=== PATIENT | male | born 1940 | race Caucasian/White ===

== ENCOUNTER → 2018-10-01 | Outpatient (CLI) | payer MEDICARE ==
--- NOTE | 2018-10-01 15:33 | KCIC ---
EXAM: Lumbar spine MRI without contrast. HISTORY: Right lower extremity radiculopathy. TECHNIQUE: Multiplanar, multisequence magnetic resonance imaging of the lumbar spine was performed without contrast. COMPARISON: None. FINDINGS: There is mild lumbar scoliosis and hyperlordosis. There is no significant listhesis. There is degenerative endplate remodeling with disc space narrowing, osteophytosis and Schmorl's node formation at the majority of the lumbar levels. There is relative preservation of the disc space at L4-L5. There are several incidental osseous hemangiomas, the largest of which is seen within T12. No suspicious osseous lesion is seen. The conus terminates at L1. There are small left renal cysts. There is slight clumping and peripheral distribution of the nerve roots at the lumbosacral junction and within the sacral canal. At T11-T12, there is a disc bulge and endplate osteophytosis. There is mild facet arthropathy. There is a tiny right facet joint synovial cyst. There is mild right foraminal stenosis. At T12-L1, there is a shallow broad-based left paracentral disc protrusion superimposed on a disc bulge and endplate remodeling. There is no stenosis. At L1-L2, there is a disc bulge and endplate osteophytosis. There is mild bilateral facet arthropathy. There is slight hypertrophy of the ligamentum flavum. There is mild to moderate bilateral foraminal stenosis. There is mild central canal stenosis. At L2-L3, there is a disc bulge and endplate osteophytosis. There may be superimposed broad-based posterior central to left paracentral disc protrusion and annular tear. There is moderate facet arthropathy. There is hypertrophy of the ligamentum flavum. There is [id number] bilateral foraminal stenosis. There is moderate to severe central canal stenosis. At L3-L4, there is a diffuse disc bulge and endplate osteophytosis. There may be superimposed broad-based posterior central disc protrusion and annular tear. There is moderate facet arthropathy. There is hypertrophy of the ligamentum flavum. There is mild bilateral foraminal stenosis. There is moderate central canal stenosis. At L4-L5, there is a broad-based posterior central to right paracentral disc protrusion with slight inferior extrusion superimposed on a disc bulge and endplate osteophytosis. There is mild bilateral facet arthropathy. There is abutment of the exiting left L4 nerve root without significant foraminal stenosis. There is abutment of the traversing right L5 nerve root without significant central canal stenosis. There are left hemilaminectomy changes. At L5-S1, there is a posterior central disc protrusion and annular tear with slight superior extrusion superimposed on a disc bulge and endplate osteophytosis. There is moderate to severe bilateral facet arthropathy. There is moderate to severe bilateral foraminal stenosis. There are left hemilaminectomy changes. IMPRESSION: 1. Multilevel degenerative change throughout the thoracic and lumbar spine, described in detail above. This results in significant foraminal and central canal stenosis at the aforementioned levels. 2. Grade 1 anterolisthesis of L5 on S1 and lumbar scoliosis. 3. Slight clumping and peripheral distribution of the nerve roots at the lumbosacral junction and within the sacral canal. 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 4. Left hemilaminectomy changes at L4-L5 and L5-S1. Electronically signed by: Aziza Barragan MD (10/01/2018 3:30 PM) [email or web address]
== END | disposition home or self-care (01) ==
LOC: KCIC MRI 13:37
PROVIDERS: ATTEND Anesthesiology Pain Medicine
DX: M47.26 Other spondylosis with radiculopathy, lumbar region (principal); M47.894 Other spondylosis, thoracic region; M48.061 Spinal stenosis, lumbar region without neurogenic claudication; M41.86 Other forms of scoliosis, lumbar region; M43.17 Spondylolisthesis, lumbosacral region; M51.27 Other intervertebral disc displacement, lumbosacral region; M12.88 Other specific arthropathies, not elsewhere classified, other specified site; D18.09 Hemangioma of other sites
CPT/HCPCS: 72148

== ENCOUNTER → 2018-12-08 | Outpatient (CLI) | payer MEDICARE ==
--- NOTE | 2018-12-08 16:07 | KCIC ---
MRI of the thoracic spine without contrast 12/08/2018 CLINICAL HISTORY: Mid back pain. TECHNIQUE: Unenhanced T1-weighted, T2-weighted and inversion recovery sagittal and T1-weighted and T2-weighted axial images of the thoracic spine were obtained. Additionally T2-weighted sagittal images of the cervical, thoracic and lumbar spine were obtained for localization purposes. FINDINGS: Very mild S-shaped curvature of the thoracolumbar spine is seen. Degenerative signal changes are seen involving all of the disks of the thoracic spine. Degenerative signal changes are seen within the marrow surrounding these discs. Several hemangiomas are seen scattered throughout the thoracic vertebral bodies. These measure 3 mm to 2.2 cm in size. No area of abnormal signal intensity is seen involving the thoracic spinal cord. A 1.8 cm rounded high signal intensity lesion is seen involving the right kidney on the T2-weighted images. This likely represents a cyst. Degenerative changes are seen throughout the thoracic disc spaces consisting of minimal to mild generalized disc bulges, degenerative changes involving the facet joints and small superimposed focal disc protrusions. These measure 2 to 3 mm in AP diameter. These findings when combined do not result in significant central spinal canal stenosis. Mild right neural foraminal stenosis is seen at T11-T12. No additional area of neural foraminal stenosis is seen. IMPRESSION: Degenerative changes are seen involving the thoracic spine as discussed above. These findings do not result in significant central spinal canal stenosis at any level. Mild right neural foraminal stenosis is seen at T11-12. Electronically signed by: Samuel Reinoso MD (12/08/2018 4:04 PM) [email or web address]
== END | disposition home or self-care (01) ==
LOC: KCIC MRI 14:06
PROVIDERS: ATTEND Nurse Practitioner Family
DX: M47.24 Other spondylosis with radiculopathy, thoracic region (principal); M48.04 Spinal stenosis, thoracic region; M51.14 Intervertebral disc disorders with radiculopathy, thoracic region; D18.09 Hemangioma of other sites
CPT/HCPCS: 72146

== ENCOUNTER → 2019-05-20 | Outpatient (CLI) | payer MEDICARE ==
[~2019-05-20] MED LIST: ASPI-630 PO; CYAN-25 PO; DOXY100C14 PO; FLUT9.9S NS; GUAI100L12 PO; HYDR-2761 PO; LORA0.5T96 PO; MELA3TAB56 PO; OXYB5TAB2 PO; TRIA15CR2 TP; [UNRECOGNIZED DRUG - CODE] TP
--- NOTE | 2019-05-20 13:27 | KCIC ---
EXAM: Bilateral knees, 3 views. HISTORY: Arthritis. COMPARISON: None. FINDINGS: 3 views of both knees are obtained. There is a left knee arthroplasty in expected position. There is a suspected trace left knee effusion. There is right tricompartmental joint space narrowing with subchondral sclerosis, subchondral cyst formation and marginal spurring. There is slight lateral subluxation of the tibia relative to the femoral condyles. There is a trace right knee effusion. IMPRESSION: 1. Moderate tricompartmental osteoarthritis of the right knee with small effusion. 2. Left knee arthroplasty in expected position. There is a suspected trace left knee effusion. Electronically signed by: Aziza Barragan MD (05/20/2019 1:24 PM) [email or web address]
== END | disposition home or self-care (01) ==
LOC: KCIC 11:44
PROVIDERS: ATTEND Anesthesiology Pain Medicine
DX: M17.0 Bilateral primary osteoarthritis of knee (principal)
CPT/HCPCS: 73562

== ENCOUNTER 2019-06-06 11:58 | Inpatient (IN) | payer MEDICARE ==
[~2019-06-06] VITALS: Ht 165.1 cm; Wt 79.4 kg
[2019-06-06] MEDS ORDERED: IV NORMAL SALINE 500ML BAG 500 ML IV ONE (12:45)
[2019-06-06 12:48] LABS: BASO # 0.1 x10^3/uL (0.0-0.2); BASO % 2 % (0-3); EOS # 0.2 x10^3/uL (0.0-0.7); EOS % 3 % (0-3); HEMATOCRIT 42.4 % (39.0-53.0); HEMOGLOBIN 14.3 g/dL (13.0-17.5); LYMPH # 1.2 x10^3/uL (1.0-4.8); LYMPH % 14 % (24-48); MEAN CORPUSCULAR HEMOGLOBIN 34 pg (25-35); MEAN CORPUSCULAR HGB CONC 34 g/dL (31-37); MEAN CORPUSCULAR VOLUME 101 fL (79-100); MONO # 0.9 x10^3/uL (0.0-1.1); MONO % 11 % (0-9); NEUT # 6.1 x10^3/uL (1.8-7.7); NEUT % 71 % (31-73); PLATELET COUNT 207 x10^3/uL (140-400); WHITE BLOOD COUNT 8.5 x10^3/uL (4.0-11.0)
[2019-06-06 12:59] LABS: CALCIUM 8.6 mg/dL (8.5-10.1); CREATININE 1.3 mg/dL (0.7-1.3); GFR 53.1; POTASSIUM 4.5 mmol/L (3.5-5.1)
[2019-06-06 13:05] LABS: ALBUMIN 3.7 g/dL (3.4-5.0); ALBUMIN/GLOBULIN RATIO 1.4 (1.0-1.7); TOTAL BILIRUBIN 0.8 mg/dL (0.2-1.0); TOTAL PROTEIN 6.4 g/dL (6.4-8.2)
--- NOTE | 2019-06-06 13:20 | RAD ---
Exam performed: One view chest. HISTORY: Weakness, dizziness DATE OF SERVICE: 06/06/2019. COMPARISON: None available Single AP upright portable view chest findings: There is opacification left lung base obscuring the left hemidiaphragm and left cardiac silhouette. The right lung is clear. There is no right-sided infiltrate. No pneumothorax. IMPRESSION: Hazy opacity left lung base obscuring the left hemidiaphragm and cardiac silhouette likely infiltrates Electronically signed by: Charisse Garcia MD (06/06/2019 1:16 PM) [facility]
[2019-06-06 13:28] LABS: BILIRUBIN,URINE NEGATIVE (NEG); CLARITY,URINE CLEAR; COLOR,URINE YELLOW; NITRITE,URINE NEGATIVE (NEG); PH,URINE 6.5; PROTEIN,URINE NEGATIVE (NEG-TRACE); UROBILINOGEN,URINE 0.2 mg/dL (0.2 mg/dL)
[2019-06-06 13:32] LABS: BACTERIA,URINE 0 /HPF (0-FEW); WBC,URINE OCC /HPF (0-4)
--- NOTE | 2019-06-06 13:51 | RAD ---
Exam: CT head without contrast. Date: 06/06/2019, comparison: None available Indication: Suspected intracranial hemorrhage Technique: 5 mm axial images of the head were obtained without contrast. Findings: There is low attenuation within the periventricular white matter consistent with chronic small vessel ischemic disease. Prominence of cortical sulci and ventricular system is noted. There is cerebral atrophy. Midline structures are central. No hydrocephalus. No suspicious cerebral edema. No mass lesion or midline shift is seen. No extra axial fluid collection, intracranial hemorrhage or acute ischemia is detected. The visualized paranasal sinuses and mastoid air cells are clear. The osseous calvarium appears unremarkable. Impression: 1.Chronic small vessel ischemic disease and cerebral atrophy. 2.No acute findings. PQRS Compliance Statement: One or more of the following individualized dose reduction techniques were utilized for this examination: 1. Automated exposure control 2. Adjustment of the mA and/or kV according to patient size 3. Use of iterative reconstruction technique Electronically signed by: Charisse Garcia MD (06/06/2019 1:48 PM) [facility]
[2019-06-06] MEDS ORDERED: cefTRIAXone IV Push 1 GM VIAL. IVP ONE (14:00)
[2019-06-06] MEDS ORDERED: DOXYCYCLINE HYCLATE 100 MG in IV DEXTROSE 5% 100ML 100 ML IV ONE (14:00)
[2019-06-06] MEDS: IV NORMAL SALINE 1000ML BAG 1,000 ML IV SCH ×2 (14:34→19:48)
[2019-06-06 16:00] VITALS: BP 141/86
--- NOTE | 2019-06-06 16:03 | PDOC1 ---
History and Physical Date of Admission Date of Admission DATE: 06/06/19 TIME: 16:03 Identification/Chief Complaint Chief Complaint 79 year old male presenting with chief complaint for 5 days of altered mental status has been hallucinating and my thinking there are little boys in his room but there is dog poop everywhere the people are coming in now he is seeing things that are not there. This is unusual for him however is also been weak with being off balance NO FEVER ///POSITIVE COUGH denies VOMITING //loss of appetite //MILD SOB NOTED Past Medical History Past Medical History Past Medical History Past Medical History: A-Fib, Cancer, Hypertension, Prostatitis Additional Past Medical Histor: chronic back pain, orthostatic hypotension, insomnia, skin CA Past Surgical History: Knee Replacement, Other Additional Past Surgical Histo: shoulder, skin ca removal on L side forehead, back, carpal tunnel Alcohol Use: None Drug Use: None nonsmoker Cardiovascular: HTN CENTRAL NERVOUS SYSTEM: Dementia Musculoskeletal: Osteoarthritis Family History Family History: High Cholestrol, Hypertension Social History Smoke: No ALCOHOL: none Drugs: None Current Medications Current Medications Current Medications Sodium Chloride 500 ml @ 500 mls/hr 1X ONCE IV Last administered on 06/06/19at 12:59; Start 06/06/19 at 12:45; Stop 06/06/19 at 13:44; Status DC Ceftriaxone Sodium (Rocephin) 1 gm 1X ONCE IVP Last administered on 06/06/19at 14:20; Start 06/06/19 at 14:00; Stop 06/06/19 at 14:01; Status DC Doxycycline Hyclate 100 mg/ Dextrose 100 ml @ 50 mls/hr 1X ONCE IV Last administered on 06/06/19at 14:21; Start 06/06/19 at 14:00; Stop 06/06/19 at 15:59; Status DC Sodium Chloride 1,000 ml @ 75 mls/hr [id number] IV ; Start 06/06/19 at 14:34; Stop 06/07/19 at 14:33 Allergies Allergies: Coded Allergies: No Known Drug Allergies (Unverified , 06/06/19) ROS Review of System Review of Systems Review of Systems Constitutional: Denies fever or chills [] Eyes: Denies change in visual acuity, redness, or eye pain [] HENT: Denies nasal congestion or sore throat [] Cardiovascular: No additional information not addressed in HPI [] Musculoskeletal: Denies back pain or joint pain [] Integument: Denies rash or skin lesions [] Neurologic: Denies headache, focal weakness or sensory changes [] Endocrine: Denies polyuria or polydipsia [] 14 pt systems were reviewed and found to be within normal limits, except as documented General: YES: Fatigue, Malaise PSYCHOLOGICAL ROS: YES: Concentration difficultie, Disorientation, Hallucinations Eyes: Yes Decreased vision HEENT: YES: Heacaches, Visual Changes, Hearing change, Nasal congestion, Nasal discharge, Oral lesions, Sinus pain, Sore Throat, Epistaxis, Sneezing, Snoring, Tinnitus, Vertigo, Vocal changes, Other ALLERGY AND IMMUNOLOGY: No: Hives, Insect Bite Sensitivity, Itchy/Watery Eyes, Nasal Congestion, Post Nasal Drip, Seasonal Allergies, Other Hematological and Lymphatic: No: Bleeding Problems, Blood Clots, Blood Transfusions, Brusing, Night Sweats, Pallor, Swollen Lymph Nodes, Other ENDOCRINE: No: Breast Changes, Galactorrhea, Hair Pattern Changes, Hot Flashes, Malaise/lethargy, Mood Swings, Palpitations, Polydipsia/polyuria, Skin Changes, Temperature Intolerance, Unexpected Weight Changes, Other Respiratory: YES: Cough, Shortness of breath, SOB with excertion Gastrointestinal: No Nausea, No Vomiting, No Abdominal Pain, No Diarrhea, No Constipation, No Melena, No Hematochezia, No Other Musculoskeletal: Yes Joint Stiffness Neurological: Yes Behavorial Changes, Yes Confusion, Yes Gait Disturbance Skin: Yes Dry Skin Physical Exam Physical Exam Physical Exam Physical Exam Constitutional: Well developed, well nourished, no acute distress, non-toxic appearance. [] HENT: Normocephalic, atraumatic, bilateral external ears normal, oropharynx DRY, no oral exudates, nose normal. [] Eyes: PERRLA, EOMI, conjunctiva normal, no discharge. [] Neck: Normal range of motion, no tenderness, supple, no stridor. [] Cardiovascular:Heart rate regular rhythm, no murmur [] Lungs & Thorax: DECREASED BREATH SOUNDS LEFT LUNG BASE SOFT NONTENDER, no masses, no pulsatile masses. [] Skin: Warm, dry, no erythema, no rash. [] Back: No tenderness, no CVA tenderness. [] Extremities: No tenderness, no cyanosis, no clubbing, ROM intact, no edema. [] disoriented to place and year General: Cooperative, No acute distress HEENT: Atraumatic, EOMI, Mucous membr. moist/pink Heart: RRR, no thrills Breasts: Not examined Abdomen: Normal bowel sounds, Soft Rectal Exam: not examined PELVIC: Examination not indicated Extremities: No clubbing, No cyanosis Skin: No significant lesion Neuro: Cranial nerves 3-12 NL Vitals Vitals Vital Signs Date Time Temp Pulse Resp B/P (MAP) Pulse Ox O2 Delivery O2 Flow Rate FiO2 06/06/19 13:17 77 15 95 06/06/19 12:00 97.8 147/85 (105) Room Air 97.8 Labs Labs Laboratory Tests Test 06/06/19 12:30 06/06/19 13:15 06/06/19 14:40 White Blood Count 8.5 x10^3/uL (4.0-11.0) Red Blood Count 4.20 x10^6/uL (4.30-5.70) Hemoglobin 14.3 g/dL (13.0-17.5) Hematocrit 42.4 % (39.0-53.0) Mean Corpuscular Volume 101 fL (79-100) Mean Corpuscular Hemoglobin 34 pg (25-35) Mean Corpuscular Hemoglobin Concent 34 g/dL (31-37) Red Cell Distribution Width 14.0 % (11.5-14.5) Platelet Count 207 x10^3/uL (140-400) Neutrophils (%) (Auto) 71 % (31-73) Lymphocytes (%) (Auto) 14 % (24-48) Monocytes (%) (Auto) 11 % (0-9) Eosinophils (%) (Auto) 3 % (0-3) Basophils (%) (Auto) 2 % (0-3) Neutrophils # (Auto) 6.1 x10^3/uL (1.8-7.7) Lymphocytes # (Auto) 1.2 x10^3/uL (1.0-4.8) Monocytes # (Auto) 0.9 x10^3/uL (0.0-1.1) Eosinophils # (Auto) 0.2 x10^3/uL (0.0-0.7) Basophils # (Auto) 0.1 x10^3/uL (0.0-0.2) Sodium Level 135 mmol/L (136-145) Potassium Level 4.5 mmol/L (3.5-5.1) Chloride Level 103 mmol/L (98-107) Carbon Dioxide Level 24 mmol/L (21-32) Anion Gap 8 (6-14) Blood Urea Nitrogen 22 mg/dL (8-26) Creatinine 1.3 mg/dL (0.7-1.3) Estimated GFR (Cockcroft-Gault) 53.1 BUN/Creatinine Ratio 17 (6-20) Glucose Level 95 mg/dL (70-99) Calcium Level 8.6 mg/dL (8.5-10.1) Total Bilirubin 0.8 mg/dL (0.2-1.0) Aspartate Amino Transf (AST/SGOT) 26 U/L (15-37) Alanine Aminotransferase (ALT/SGPT) 19 U/L (16-63) Alkaline Phosphatase 59 U/L (46-116) Total Protein 6.4 g/dL (6.4-8.2) Albumin 3.7 g/dL (3.4-5.0) Albumin/Globulin Ratio 1.4 (1.0-1.7) Urine Collection Type Unknown Urine Color Yellow Urine Clarity Clear Urine pH 6.5 Urine Specific [place] 1.015 Urine Protein Negative mg/dL (NEG-TRACE) Urine Glucose (UA) Negative mg/dL (NEG) Urine Ketones (Stick) Negative mg/dL (NEG) Urine Blood Negative (NEG) Urine Nitrite Negative (NEG) Urine Bilirubin Negative (NEG) Urine Urobilinogen Dipstick 0.2 mg/dL (0.2 mg/dL) Urine Leukocyte Esterase Negative (NEG) Urine RBC 1-2 /HPF (0-2) Urine WBC Occ /HPF (0-4) Urine Bacteria 0 /HPF (0-FEW) Lactic Acid Level 1.0 mmol/L (0.4-2.0) Laboratory Tests Test 06/06/19 12:30 06/06/19 13:15 06/06/19 14:40 White Blood Count 8.5 x10^3/uL (4.0-11.0) Red Blood Count 4.20 x10^6/uL (4.30-5.70) Hemoglobin 14.3 g/dL (13.0-17.5) Hematocrit 42.4 % (39.0-53.0) Mean Corpuscular Volume 101 fL (79-100) Mean Corpuscular Hemoglobin 34 pg (25-35) Mean Corpuscular Hemoglobin Concent 34 g/dL (31-37) Red Cell Distribution Width 14.0 % (11.5-14.5) Platelet Count 207 x10^3/uL (140-400) Neutrophils (%) (Auto) 71 % (31-73) Lymphocytes (%) (Auto) 14 % (24-48) Monocytes (%) (Auto) 11 % (0-9) Eosinophils (%) (Auto) 3 % (0-3) Basophils (%) (Auto) 2 % (0-3) Neutrophils # (Auto) 6.1 x10^3/uL (1.8-7.7) Lymphocytes # (Auto) 1.2 x10^3/uL (1.0-4.8) Monocytes # (Auto) 0.9 x10^3/uL (0.0-1.1) Eosinophils # (Auto) 0.2 x10^3/uL (0.0-0.7) Basophils # (Auto) 0.1 x10^3/uL (0.0-0.2) Sodium Level 135 mmol/L (136-145) Potassium Level 4.5 mmol/L (3.5-5.1) Chloride Level 103 mmol/L (98-107) Carbon Dioxide Level 24 mmol/L (21-32) Anion Gap 8 (6-14) Blood Urea Nitrogen 22 mg/dL (8-26) Creatinine 1.3 mg/dL (0.7-1.3) Estimated GFR (Cockcroft-Gault) 53.1 BUN/Creatinine Ratio 17 (6-20) Glucose Level 95 mg/dL (70-99) Calcium Level 8.6 mg/dL (8.5-10.1) Total Bilirubin 0.8 mg/dL (0.2-1.0) Aspartate Amino Transf (AST/SGOT) 26 U/L (15-37) Alanine Aminotransferase (ALT/SGPT) 19 U/L (16-63) Alkaline Phosphatase 59 U/L (46-116) Total Protein 6.4 g/dL (6.4-8.2) Albumin 3.7 g/dL (3.4-5.0) Albumin/Globulin Ratio 1.4 (1.0-1.7) Urine Collection Type Unknown Urine Color Yellow Urine Clarity Clear Urine pH 6.5 Urine Specific [place] 1.015 Urine Protein Negative mg/dL (NEG-TRACE) Urine Glucose (UA) Negative mg/dL (NEG) Urine Ketones (Stick) Negative mg/dL (NEG) Urine Blood Negative (NEG) Urine Nitrite Negative (NEG) Urine Bilirubin Negative (NEG) Urine Urobilinogen Dipstick 0.2 mg/dL (0.2 mg/dL) Urine Leukocyte Esterase Negative (NEG) Urine RBC 1-2 /HPF (0-2) Urine WBC Occ /HPF (0-4) Urine Bacteria 0 /HPF (0-FEW) Lactic Acid Level 1.0 mmol/L (0.4-2.0) Images Images Exam performed: One view chest. HISTORY: Weakness, dizziness DATE OF SERVICE: 06/06/2019. COMPARISON: None available Single AP upright portable view chest findings: There is opacification left lung base obscuring the left hemidiaphragm and left cardiac silhouette. The right lung is clear. There is no right-sided infiltrate. No pneumothorax. IMPRESSION: Hazy opacity left lung base obscuring the left hemidiaphragm and cardiac silhouette likely infiltrates Electronically signed by: Charisse Garcia MD (06/06/2019 1:16 PM) [facility] DICTATED and SIGNED BY: CHARISSE GARCIA MD DATE: 06/06/19 1316 VTE Prophylaxis Ordered VTE Prophylaxis Devices: Yes VTE Pharmacological Prophylaxi: Yes Assessment/Plan Assessment/Plan Impression: acute mental status change acute metabolic encephalopathy pneumonia, acute acute hypoxic resp failure Chronic small vessel cerebrovascular ischemic disease and cerebral atrophy. hx dementia, moderate severity obesity plan admit iv fluid support iv antibiotics o2 support prn dvt prophylaxis 78 min pt exam, chart review, > 50% of time spent with exam, chart review, pt care coordination MARILIA CHAMPION MD Jun 06, 2019 16:03
--- NOTE | 2019-06-06 16:34 | PHYS DOC ---
Past Medical History Past Medical History: A-Fib, Cancer, Hypertension, Prostatitis Additional Past Medical Histor: chronic back pain, orthostatic hypotension, insomnia, skin CA Past Surgical History: Knee Replacement, Other Additional Past Surgical Histo: shoulder, skin ca removal on L side forehead, back, carpal tunnel Alcohol Use: None Drug Use: None Adult General Chief Complaint Chief Complaint: DIZZY/LIGHT HEADED HPI HPI Patient is a 79 year old male presenting with chief complaint for 5 days of altered mental status has been hallucinating and my thinking there are little boys in his room but there is dog poop everywhere the people are coming in now he is seeing things that are not there. This is unusual for him however is also been weak with being off balance NO FEVER POSITIVE COUGH NO VOMITING BUT NOT HUNGRY MILD SOB NOTED Review of Systems Review of Systems Constitutional: Denies fever or chills [] Eyes: Denies change in visual acuity, redness, or eye pain [] HENT: Denies nasal congestion or sore throat [] Cardiovascular: No additional information not addressed in HPI [] Musculoskeletal: Denies back pain or joint pain [] Integument: Denies rash or skin lesions [] Neurologic: Denies headache, focal weakness or sensory changes [] Endocrine: Denies polyuria or polydipsia [] All other systems were reviewed and found to be within normal limits, except as documented in this note. Current Medications Current Medications Current Medications Medications (Trade) Dose Ordered Sig/Lobito Start Time Stop Time Status Last Admin Dose Admin Ceftriaxone Sodium (Rocephin) 1 gm 1X ONCE 06/06/19 14:00 06/06/19 14:01 DC 06/06/19 14:20 1 GM Doxycycline Hyclate 100 mg/ Dextrose 100 ml @ 50 mls/hr 1X ONCE 06/06/19 14:00 06/06/19 15:59 DC 06/06/19 14:21 50 MLS/HR Sodium Chloride 500 ml @ 500 mls/hr 1X ONCE 06/06/19 12:45 06/06/19 13:44 DC 06/06/19 12:59 500 MLS/HR Allergies Allergies Allergies Coded Allergies Type Severity Reaction Last Updated Verified No Known Drug Allergies 06/06/19 No Physical Exam Physical Exam Constitutional: Well developed, well nourished, no acute distress, non-toxic appearance. [] HENT: Normocephalic, atraumatic, bilateral external ears normal, oropharynx DRY, no oral exudates, nose normal. [] Eyes: PERRLA, EOMI, conjunctiva normal, no discharge. [] Neck: Normal range of motion, no tenderness, supple, no stridor. [] Cardiovascular:Heart rate regular rhythm, no murmur [] Lungs & Thorax: DECREASED BREATH SOUNDS LEFT LUNG BASE SOFT NONTENDER, no masses, no pulsatile masses. [] Skin: Warm, dry, no erythema, no rash. [] Back: No tenderness, no CVA tenderness. [] Extremities: No tenderness, no cyanosis, no clubbing, ROM intact, no edema. [] Neurologic: Alert and oriented X 3, normal motor function, normal sensory function, no focal deficits noted. [] Psychologic: Affect normal, judgement normal, mood normal. [] Current Patient Data Vital Signs Vital Signs Date Time Temp Pulse Resp B/P (MAP) Pulse Ox O2 Delivery O2 Flow Rate FiO2 06/06/19 13:17 77 15 95 06/06/19 12:00 97.8 147/85 (105) Room Air 97.8 Lab Values Laboratory Tests Test 06/06/19 12:30 06/06/19 13:15 White Blood Count 8.5 x10^3/uL (4.0-11.0) Red Blood Count 4.20 x10^6/uL (4.30-5.70) L Hemoglobin 14.3 g/dL (13.0-17.5) Hematocrit 42.4 % (39.0-53.0) Mean Corpuscular Volume 101 fL (79-100) H Mean Corpuscular Hemoglobin 34 pg (25-35) Mean Corpuscular Hemoglobin Concent 34 g/dL (31-37) Red Cell Distribution Width 14.0 % (11.5-14.5) Platelet Count 207 x10^3/uL (140-400) Neutrophils (%) (Auto) 71 % (31-73) Lymphocytes (%) (Auto) 14 % (24-48) L Monocytes (%) (Auto) 11 % (0-9) H Eosinophils (%) (Auto) 3 % (0-3) Basophils (%) (Auto) 2 % (0-3) Neutrophils # (Auto) 6.1 x10^3/uL (1.8-7.7) Lymphocytes # (Auto) 1.2 x10^3/uL (1.0-4.8) Monocytes # (Auto) 0.9 x10^3/uL (0.0-1.1) Eosinophils # (Auto) 0.2 x10^3/uL (0.0-0.7) Basophils # (Auto) 0.1 x10^3/uL (0.0-0.2) Sodium Level 135 mmol/L (136-145) L Potassium Level 4.5 mmol/L (3.5-5.1) Chloride Level 103 mmol/L (98-107) Carbon Dioxide Level 24 mmol/L (21-32) Anion Gap 8 (6-14) Blood Urea Nitrogen 22 mg/dL (8-26) Creatinine 1.3 mg/dL (0.7-1.3) Estimated GFR (Cockcroft-Gault) 53.1 BUN/Creatinine Ratio 17 (6-20) Glucose Level 95 mg/dL (70-99) Calcium Level 8.6 mg/dL (8.5-10.1) Total Bilirubin 0.8 mg/dL (0.2-1.0) Aspartate Amino Transferase (AST) 26 U/L (15-37) Alanine Aminotransferase (ALT) 19 U/L (16-63) Alkaline Phosphatase 59 U/L (46-116) Total Protein 6.4 g/dL (6.4-8.2) Albumin 3.7 g/dL (3.4-5.0) Albumin/Globulin Ratio 1.4 (1.0-1.7) Urine Collection Type Unknown Urine Color Yellow Urine Clarity Clear Urine pH 6.5 Urine Specific [place] 1.015 Urine Protein Negative mg/dL (NEG-TRACE) Urine Glucose (UA) Negative mg/dL (NEG) Urine Ketones (Stick) Negative mg/dL (NEG) Urine Blood Negative (NEG) Urine Nitrite Negative (NEG) Urine Bilirubin Negative (NEG) Urine Urobilinogen Dipstick 0.2 mg/dL (0.2 mg/dL) Urine Leukocyte Esterase Negative (NEG) Urine RBC 1-2 /HPF (0-2) Urine WBC Occ /HPF (0-4) Urine Bacteria 0 /HPF (0-FEW) Laboratory Tests 06/06/19 12:30 Laboratory Tests 06/06/19 12:30 EKG EKG [] Radiology/Procedures Radiology/Procedures [] Single AP upright portable view chest findings: There is opacification left lung base obscuring the left hemidiaphragm and left cardiac silhouette. The right lung is clear. There is no right-sided infiltrate. No pneumothorax. 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 2.No acute findings. PQRS Compliance Statement: One or more of the following individualized dose reduction techniques were utilized for this examination: 1. Automated exposure control 2. Adjustment of the mA and/or kV according to patient size 3. Use of iterative reconstruction technique Electronically signed by: Viv Garcia MD (06/06/2019 1:48 PM) [facility] DICTATED and SIGNED BY: VIV GARCIA MD DATE: 06/06/19 1348 Course & Med Decision Making Course & Med Decision Making Pertinent Labs and Imaging studies reviewed. (See chart for details) []79 YO M WITH history of hypertension and A. fib above past medical presenting with decreased mental status primarily hallucinations and generalized weakness for the last few days found to have pneumonia on chest x-ray normal saturation but given mental status changes I opted to admit to Dr. Mckinley discussed case with him who is in agreement antibiotics given patient stable Dragon Disclaimer Sarthak Disclaimer This electronic medical record was generated, in whole or in part, using a voice recognition dictation system. Departure Departure Impression: Primary Impression: Pneumonia Disposition: ADMITTED INPATIENT Admitting Physician: CAMILLE Condition: STABLE Referrals: BEHZAD ROBERTS MD (PCP) JAMES COSTELLO MD Jun 06, 2019 16:34
[2019-06-06] MEDS ORDERED: cloNIDine HCL 0.1 MG TABLET PO PRN (17:45)
[2019-06-06] MEDS ORDERED: ACETAMINOPHEN 325 MG TABLET. PO PRN (17:45)
[2019-06-06] MEDS ORDERED: ONDANSETRON PF 4 MG/2 ML VIAL. IV PRN (17:45)
[2019-06-06] MEDS ORDERED: 0.9 % SODIUM CHLORIDE 10 ML DISP.SYRIN. IV PRN (17:45)
[2019-06-06] MEDS ORDERED: DOCUSATE SODIUM 100 MG CAPSULE. PO PRN (17:45)
[2019-06-06] MEDS ORDERED: MAG HYDROX/ALUMINUM HYD/SIMETH 30 ML ORAL.SUSP PO PRN (17:45)
[2019-06-06 19:00] VITALS: BP 142/84
[2019-06-06] MEDS: PIPERACILLIN/TAZOBACTAM 2.25 GM in IV NORMAL SALINE 50ML 50 ML IV SCH (19:55)
--- NOTE | 2019-06-06 20:43 | NUR ---
The patient, CHENG KINSEY, 79 y/o, M admitted by MARILIA CHAMPION MD, was given written information regarding hospital policies, unit procedures and contact persons. Valuables were checked and watch and wallet were sent home with daughter. ordered for patient to have a 1:1 observation. Nurse Radial Saw Operator notified.
[2019-06-06] MEDS ORDERED: [UNRECOGNIZED DRUG - CODE] TP (20:52)
[2019-06-06] MEDS ORDERED: MELA3TAB56 PO (20:52)
[2019-06-06] MEDS ORDERED: HYDR-2761 PO (20:52)
[2019-06-06] MEDS ORDERED: TRIA15CR2 TP (20:52)
[2019-06-06] MEDS ORDERED: OXYB5TAB2 PO (20:52)
[2019-06-06] MEDS ORDERED: CYAN-25 PO (20:52)
[2019-06-06] MEDS ORDERED: FLUT9.9S NS (20:52)
[2019-06-06] MEDS ORDERED: FLUTICASONE 50MCG/NASAL SPRAY 16GM BOTTLE. NS PRN (21:00)
[2019-06-06] MEDS: FLUOROURACIL TP SCH (21:00)
[2019-06-06] MEDS: ZOLPIDEM 5 MG TABLET. PO SCH (21:15)
[2019-06-06] MEDS: TRIAMCINOLONE ACETONIDE 0.1% TOPICAL CREAM 15GM TUBE. TP SCH (21:30)
[2019-06-06] MEDS: IPRATRPIUM/ALBUTEROL 0.5/2.5MG 3 ML NEBU. NEB SCH (22:15)
[2019-06-06] MEDS: OXYBUTYNIN CHLORIDE 5 MG TABLET PO SCH (22:19)
[2019-06-06] MEDS: ENOXAPARIN 40 MG/0.4 ML SYRINGE. SQ SCH (22:19)
[2019-06-06] MEDS: LORazepam 0.5 MG TABLET PO PRN (22:20)
[2019-06-06] MEDS: DOXYCYCLINE HYCLATE 100 MG in IV DEXTROSE 5% 100ML 100 ML IV SCH (22:20)
[2019-06-07] VITALS (7 sets, daily range): BP systolic 112–150; BP diastolic 76–99
[2019-06-07] MEDS: PIPERACILLIN/TAZOBACTAM 2.25 GM in IV NORMAL SALINE 50ML 50 ML IV SCH ×5 (00:50→23:29)
[2019-06-07] MEDS: LORazepam 0.5 MG TABLET PO PRN ×2 (02:31→23:28)
[2019-06-07] MEDS: IV NORMAL SALINE 1000ML BAG 1,000 ML IV SCH ×4 (03:54→20:59)
[2019-06-07] MEDS: IPRATRPIUM/ALBUTEROL 0.5/2.5MG 3 ML NEBU. NEB SCH ×5 (04:00→20:06)
[2019-06-07 06:33] LABS: BASO % 1 % (0-3); EOS # 0.3 x10^3/uL (0.0-0.7); EOS % 4 % (0-3); HEMATOCRIT 40.1 % (39.0-53.0); HEMOGLOBIN 13.6 g/dL (13.0-17.5); LYMPH # 1.3 x10^3/uL (1.0-4.8); LYMPH % 17 % (24-48); MEAN CORPUSCULAR HEMOGLOBIN 34 pg (25-35); MEAN CORPUSCULAR HGB CONC 34 g/dL (31-37); MEAN CORPUSCULAR VOLUME 101 fL (79-100); MONO # 0.9 x10^3/uL (0.0-1.1); MONO % 12 % (0-9); NEUT # 4.9 x10^3/uL (1.8-7.7); NEUT % 66 % (31-73); PLATELET COUNT 179 x10^3/uL (140-400); RED BLOOD COUNT 3.96 x10^6/uL (4.30-5.70); RED CELL DISTRIBUTION WIDTH 13.9 % (11.5-14.5); WHITE BLOOD COUNT 7.4 x10^3/uL (4.0-11.0)
[2019-06-07 06:47] LABS: CALCIUM 8.2 mg/dL (8.5-10.1); CREATININE 1.4 mg/dL (0.7-1.3); GFR 48.8; POTASSIUM 4.1 mmol/L (3.5-5.1)
--- NOTE | 2019-06-07 07:37 | PDOC ---
Provider Note Provider Note [id number] acute resp fail abnl cxr pneumonia ct abg abx LARON SPRAGUE MD Jun 07, 2019 07:37
--- NOTE | 2019-06-07 08:22 | CONS ---
DATE OF CONSULTATION: 06/07/2019 REASON FOR CONSULTATION: I was asked to see this 79-year-old gentleman for acute respiratory failure, abnormal chest x-ray, pneumonia. HISTORY OF PRESENT ILLNESS: The patient received Ativan 0.5 mg around 2:00 a.m. He is lethargic and not able to answer my questions. When asked him a question, he moans. All of the information was obtained from nursing staff and chart. Apparently, he presented to the Emergency Room with hallucination, altered mental status for 5 days. He also has been weak and off balance. PAST MEDICAL HISTORY: AFib; hypertension; cancer, details are not known, skin cancer. PAST SURGICAL HISTORY: Knee replacement. ALLERGIES: No known drug allergies. MEDICATIONS: Currently, he is on vitamin B12, Ambien, Ditropan, Flonase, Lovenox, doxycycline, Zosyn, DuoNeb. SOCIAL HISTORY: Unable to obtain. The patient is lethargic. FAMILY HISTORY: Hypertension per chart. REVIEW OF SYSTEMS: As mentioned above. I have discussed the patient with RN, other systems otherwise negative. PHYSICAL EXAMINATION: GENERAL: Well-developed gentleman. VITAL SIGNS: His O2 saturation is 94%, respiratory rate 20, heart rate 82, blood pressure 150/99, temperature 98.4. HEENT: Normocephalic, atraumatic. Nose is clear. NECK: There is no lymphadenopathy or thyromegaly. CARDIOVASCULAR: Irregular rate and rhythm. PMI is nondisplaced. CHEST: Inspection is normal. LUNGS: Bibasilar crackles, dullness at the left base. ABDOMEN: Soft. Bowel sounds are good. There is no mass. EXTREMITIES: There is no edema. LYMPHATICS: There is no lymphadenopathy. NEUROLOGIC: He is lethargic. SKIN: Chronic changes. LABORATORY DATA: I reviewed the following lab data: Chest x-ray shows hazy opacity in left lung base, obscuring the left hemidiaphragm and cardiac silhouette, likely infiltrate. CT of head did not show bleed, showed chronic small vessel ischemic disease and cerebral atrophy, no acute findings. WBC 7.4, hemoglobin 13.4, platelets 179. Sodium 143, potassium 4.1, chloride 109, CO2 of 24, glucose 84, BUN 18, creatinine 1.4. Lactic acid 1. IMPRESSION: 1. Acute respiratory failure secondary to pneumonia. 2. Abnormal chest x-ray. 3. Encephalopathy. 4. History of dementia. 5. 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 6. Hypertension. 7. Acute versus chronic kidney injury. PLAN AND RECOMMENDATIONS: 1. Titrate FiO2 to keep O2 saturation 92%. 2. ABG. 3. Continue antibiotic. 4. Bronchodilator. 5. I will do CT of the chest without contrast. 6. The findings and recommendations were discussed with RN. I have advised avoid oversedation. Thank you very much for allowing me to participate in care of this very nice gentleman. LARON SPRAGUE M.D. DR: Naren JOB#: [id number] / [id number] SUSHMA
[2019-06-07] MEDS: CYANOCOBALAMIN (VITAMIN B-12) 1,000 MCG TABLET. PO SCH (08:59)
[2019-06-07] MEDS: DOXYCYCLINE HYCLATE 100 MG in IV DEXTROSE 5% 100ML 100 ML IV SCH ×2 (08:59→20:59)
[2019-06-07] MEDS: OXYBUTYNIN CHLORIDE 5 MG TABLET PO SCH ×2 (08:59→20:56)
[2019-06-07] MEDS: TRIAMCINOLONE ACETONIDE 0.1% TOPICAL CREAM 15GM TUBE. TP SCH ×2 (09:00→21:00)
[2019-06-07] MEDS: FLUOROURACIL TP SCH (09:00)
--- NOTE | 2019-06-07 10:30 | PDOC ---
PROGRESS NOTES Chief Complaint Chief Complaint A/P: Acute metabolic encephalopathy Pneumonia, acute Acute hypoxic resp failure Chronic small vessel cerebrovascular ischemic disease and cerebral atrophy Hx dementia, moderate severity Obesity History of Present Illness History of Present Illness Mr Canela is an 79yo M w/ PMHx AFib, hypertension, skin cancer who presents with hallucinations of boys and dogs, feces and altered mental status for 5 days. He also has been weak and off balance. Admitted for further care. CT head negative for acute findings, CXR shows Hazy opacity left lung base obscuring the left hemidiaphragm and cardiac silhouette likely infiltrates. He is somewhat confused. Talking to her daughter on the phone, but the phone is not on, though it seems he is responding to her. Still with a little cough. He does not want to talk about his hallucinations, just wants them to go away. Vitals Vitals Vital Signs Date Time Temp Pulse Resp B/P (MAP) Pulse Ox O2 Delivery O2 Flow Rate FiO2 06/07/19 08:08 96 Room Air 06/07/19 07:59 99.0 93 24 150/89 (109) 99.0 Physical Exam General: Cooperative, No acute distress Abdomen: Normal bowel sounds, Soft Extremities: No clubbing, No cyanosis Skin: No significant lesion Labs LABS Laboratory Tests Test 06/06/19 12:30 06/06/19 13:15 06/06/19 14:40 06/07/19 04:45 White Blood Count 8.5 x10^3/uL (4.0-11.0) 7.4 x10^3/uL (4.0-11.0) Red Blood Count 4.20 x10^6/uL (4.30-5.70) 3.96 x10^6/uL (4.30-5.70) Hemoglobin 14.3 g/dL (13.0-17.5) 13.6 g/dL (13.0-17.5) Hematocrit 42.4 % (39.0-53.0) 40.1 % (39.0-53.0) Mean Corpuscular Volume 101 fL (79-100) 101 fL (79-100) Mean Corpuscular Hemoglobin 34 pg (25-35) 34 pg (25-35) Mean Corpuscular Hemoglobin Concent 34 g/dL (31-37) 34 g/dL (31-37) Red Cell Distribution Width 14.0 % (11.5-14.5) 13.9 % (11.5-14.5) Platelet Count 207 x10^3/uL (140-400) 179 x10^3/uL (140-400) Neutrophils (%) (Auto) 71 % (31-73) 66 % (31-73) Lymphocytes (%) (Auto) 14 % (24-48) 17 % (24-48) Monocytes (%) (Auto) 11 % (0-9) 12 % (0-9) Eosinophils (%) (Auto) 3 % (0-3) 4 % (0-3) Basophils (%) (Auto) 2 % (0-3) 1 % (0-3) Neutrophils # (Auto) 6.1 x10^3/uL (1.8-7.7) 4.9 x10^3/uL (1.8-7.7) Lymphocytes # (Auto) 1.2 x10^3/uL (1.0-4.8) 1.3 x10^3/uL (1.0-4.8) Monocytes # (Auto) 0.9 x10^3/uL (0.0-1.1) 0.9 x10^3/uL (0.0-1.1) Eosinophils # (Auto) 0.2 x10^3/uL (0.0-0.7) 0.3 x10^3/uL (0.0-0.7) Basophils # (Auto) 0.1 x10^3/uL (0.0-0.2) 0.0 x10^3/uL (0.0-0.2) Sodium Level 135 mmol/L (136-145) 143 mmol/L (136-145) Potassium Level 4.5 mmol/L (3.5-5.1) 4.1 mmol/L (3.5-5.1) Chloride Level 103 mmol/L (98-107) 109 mmol/L (98-107) Carbon Dioxide Level 24 mmol/L (21-32) 24 mmol/L (21-32) Anion Gap 8 (6-14) 10 (6-14) Blood Urea Nitrogen 22 mg/dL (8-26) 18 mg/dL (8-26) Creatinine 1.3 mg/dL (0.7-1.3) 1.4 mg/dL (0.7-1.3) Estimated GFR (Cockcroft-Gault) 53.1 48.8 BUN/Creatinine Ratio 17 (6-20) Glucose Level 95 mg/dL (70-99) 84 mg/dL (70-99) Calcium Level 8.6 mg/dL (8.5-10.1) 8.2 mg/dL (8.5-10.1) Total Bilirubin 0.8 mg/dL (0.2-1.0) Aspartate Amino Transf (AST/SGOT) 26 U/L (15-37) Alanine Aminotransferase (ALT/SGPT) 19 U/L (16-63) Alkaline Phosphatase 59 U/L (46-116) Total Protein 6.4 g/dL (6.4-8.2) Albumin 3.7 g/dL (3.4-5.0) Albumin/Globulin Ratio 1.4 (1.0-1.7) Urine Collection Type Unknown Urine Color Yellow Urine Clarity Clear Urine pH 6.5 Urine Specific [place] 1.015 Urine Protein Negative mg/dL (NEG-TRACE) Urine Glucose (UA) Negative mg/dL (NEG) Urine Ketones (Stick) Negative mg/dL (NEG) Urine Blood Negative (NEG) Urine Nitrite Negative (NEG) Urine Bilirubin Negative (NEG) Urine Urobilinogen Dipstick 0.2 mg/dL (0.2 mg/dL) Urine Leukocyte Esterase Negative (NEG) Urine RBC 1-2 /HPF (0-2) Urine WBC Occ /HPF (0-4) Urine Bacteria 0 /HPF (0-FEW) Lactic Acid Level 1.0 mmol/L (0.4-2.0) Assessment and Plan Assessmemt and Plan Problems Medical Problems: (1) Pneumonia Status: Acute Comment Review of Relevant I have reviewed the following items julia (where applicable) has been applied. Labs Laboratory Tests Test 06/06/19 12:30 06/06/19 13:15 06/06/19 14:40 06/07/19 04:45 White Blood Count 8.5 x10^3/uL (4.0-11.0) 7.4 x10^3/uL (4.0-11.0) Red Blood Count 4.20 x10^6/uL (4.30-5.70) 3.96 x10^6/uL (4.30-5.70) Hemoglobin 14.3 g/dL (13.0-17.5) 13.6 g/dL (13.0-17.5) Hematocrit 42.4 % (39.0-53.0) 40.1 % (39.0-53.0) Mean Corpuscular Volume 101 fL (79-100) 101 fL (79-100) Mean Corpuscular Hemoglobin 34 pg (25-35) 34 pg (25-35) Mean Corpuscular Hemoglobin Concent 34 g/dL (31-37) 34 g/dL (31-37) Red Cell Distribution Width 14.0 % (11.5-14.5) 13.9 % (11.5-14.5) Platelet Count 207 x10^3/uL (140-400) 179 x10^3/uL (140-400) Neutrophils (%) (Auto) 71 % (31-73) 66 % (31-73) Lymphocytes (%) (Auto) 14 % (24-48) 17 % (24-48) Monocytes (%) (Auto) 11 % (0-9) 12 % (0-9) Eosinophils (%) (Auto) 3 % (0-3) 4 % (0-3) Basophils (%) (Auto) 2 % (0-3) 1 % (0-3) Neutrophils # (Auto) 6.1 x10^3/uL (1.8-7.7) 4.9 x10^3/uL (1.8-7.7) Lymphocytes # (Auto) 1.2 x10^3/uL (1.0-4.8) 1.3 x10^3/uL (1.0-4.8) Monocytes # (Auto) 0.9 x10^3/uL (0.0-1.1) 0.9 x10^3/uL (0.0-1.1) Eosinophils # (Auto) 0.2 x10^3/uL (0.0-0.7) 0.3 x10^3/uL (0.0-0.7) Basophils # (Auto) 0.1 x10^3/uL (0.0-0.2) 0.0 x10^3/uL (0.0-0.2) Sodium Level 135 mmol/L (136-145) 143 mmol/L (136-145) Potassium Level 4.5 mmol/L (3.5-5.1) 4.1 mmol/L (3.5-5.1) Chloride Level 103 mmol/L (98-107) 109 mmol/L (98-107) Carbon Dioxide Level 24 mmol/L (21-32) 24 mmol/L (21-32) Anion Gap 8 (6-14) 10 (6-14) Blood Urea Nitrogen 22 mg/dL (8-26) 18 mg/dL (8-26) Creatinine 1.3 mg/dL (0.7-1.3) 1.4 mg/dL (0.7-1.3) Estimated GFR (Cockcroft-Gault) 53.1 48.8 BUN/Creatinine Ratio 17 (6-20) Glucose Level 95 mg/dL (70-99) 84 mg/dL (70-99) Calcium Level 8.6 mg/dL (8.5-10.1) 8.2 mg/dL (8.5-10.1) Total Bilirubin 0.8 mg/dL (0.2-1.0) Aspartate Amino Transf (AST/SGOT) 26 U/L (15-37) Alanine Aminotransferase (ALT/SGPT) 19 U/L (16-63) Alkaline Phosphatase 59 U/L (46-116) Total Protein 6.4 g/dL (6.4-8.2) Albumin 3.7 g/dL (3.4-5.0) Albumin/Globulin Ratio 1.4 (1.0-1.7) Urine Collection Type Unknown Urine Color Yellow Urine Clarity Clear Urine pH 6.5 Urine Specific [place] 1.015 Urine Protein Negative mg/dL (NEG-TRACE) Urine Glucose (UA) Negative mg/dL (NEG) Urine Ketones (Stick) Negative mg/dL (NEG) Urine Blood Negative (NEG) Urine Nitrite Negative (NEG) Urine Bilirubin Negative (NEG) Urine Urobilinogen Dipstick 0.2 mg/dL (0.2 mg/dL) Urine Leukocyte Esterase Negative (NEG) Urine RBC 1-2 /HPF (0-2) Urine WBC Occ /HPF (0-4) Urine Bacteria 0 /HPF (0-FEW) Lactic Acid Level 1.0 mmol/L (0.4-2.0) Laboratory Tests Test 06/06/19 12:30 06/06/19 13:15 06/06/19 14:40 06/07/19 04:45 White Blood Count 8.5 x10^3/uL (4.0-11.0) 7.4 x10^3/uL (4.0-11.0) Red Blood Count 4.20 x10^6/uL (4.30-5.70) 3.96 x10^6/uL (4.30-5.70) Hemoglobin 14.3 g/dL (13.0-17.5) 13.6 g/dL (13.0-17.5) Hematocrit 42.4 % (39.0-53.0) 40.1 % (39.0-53.0) Mean Corpuscular Volume 101 fL (79-100) 101 fL (79-100) Mean Corpuscular Hemoglobin 34 pg (25-35) 34 pg (25-35) Mean Corpuscular Hemoglobin Concent 34 g/dL (31-37) 34 g/dL (31-37) Red Cell Distribution Width 14.0 % (11.5-14.5) 13.9 % (11.5-14.5) Platelet Count 207 x10^3/uL (140-400) 179 x10^3/uL (140-400) Neutrophils (%) (Auto) 71 % (31-73) 66 % (31-73) Lymphocytes (%) (Auto) 14 % (24-48) 17 % (24-48) Monocytes (%) (Auto) 11 % (0-9) 12 % (0-9) Eosinophils (%) (Auto) 3 % (0-3) 4 % (0-3) Basophils (%) (Auto) 2 % (0-3) 1 % (0-3) Neutrophils # (Auto) 6.1 x10^3/uL (1.8-7.7) 4.9 x10^3/uL (1.8-7.7) Lymphocytes # (Auto) 1.2 x10^3/uL (1.0-4.8) 1.3 x10^3/uL (1.0-4.8) Monocytes # (Auto) 0.9 x10^3/uL (0.0-1.1) 0.9 x10^3/uL (0.0-1.1) Eosinophils # (Auto) 0.2 x10^3/uL (0.0-0.7) 0.3 x10^3/uL (0.0-0.7) Basophils # (Auto) 0.1 x10^3/uL (0.0-0.2) 0.0 x10^3/uL (0.0-0.2) Sodium Level 135 mmol/L (136-145) 143 mmol/L (136-145) Potassium Level 4.5 mmol/L (3.5-5.1) 4.1 mmol/L (3.5-5.1) Chloride Level 103 mmol/L (98-107) 109 mmol/L (98-107) Carbon Dioxide Level 24 mmol/L (21-32) 24 mmol/L (21-32) Anion Gap 8 (6-14) 10 (6-14) Blood Urea Nitrogen 22 mg/dL (8-26) 18 mg/dL (8-26) Creatinine 1.3 mg/dL (0.7-1.3) 1.4 mg/dL (0.7-1.3) Estimated GFR (Cockcroft-Gault) 53.1 48.8 BUN/Creatinine Ratio 17 (6-20) Glucose Level 95 mg/dL (70-99) 84 mg/dL (70-99) Calcium Level 8.6 mg/dL (8.5-10.1) 8.2 mg/dL (8.5-10.1) Total Bilirubin 0.8 mg/dL (0.2-1.0) Aspartate Amino Transf (AST/SGOT) 26 U/L (15-37) Alanine Aminotransferase (ALT/SGPT) 19 U/L (16-63) Alkaline Phosphatase 59 U/L (46-116) Total Protein 6.4 g/dL (6.4-8.2) Albumin 3.7 g/dL (3.4-5.0) Albumin/Globulin Ratio 1.4 (1.0-1.7) Urine Collection Type Unknown Urine Color Yellow Urine Clarity Clear Urine pH 6.5 Urine Specific [place] 1.015 Urine Protein Negative mg/dL (NEG-TRACE) Urine Glucose (UA) Negative mg/dL (NEG) Urine Ketones (Stick) Negative mg/dL (NEG) Urine Blood Negative (NEG) Urine Nitrite Negative (NEG) Urine Bilirubin Negative (NEG) Urine Urobilinogen Dipstick 0.2 mg/dL (0.2 mg/dL) Urine Leukocyte Esterase Negative (NEG) Urine RBC 1-2 /HPF (0-2) Urine WBC Occ /HPF (0-4) Urine Bacteria 0 /HPF (0-FEW) Lactic Acid Level 1.0 mmol/L (0.4-2.0) Medications Current Medications Sodium Chloride 500 ml @ 500 mls/hr 1X ONCE IV Last administered on 06/06/19at 12:59; Start 06/06/19 at 12:45; Stop 06/06/19 at 13:44; Status DC Ceftriaxone Sodium (Rocephin) 1 gm 1X ONCE IVP Last administered on 06/06/19at 14:20; Start 06/06/19 at 14:00; Stop 06/06/19 at 14:01; Status DC Doxycycline Hyclate 100 mg/ Dextrose 100 ml @ 50 mls/hr 1X ONCE IV Last administered on 06/06/19at 14:21; Start 06/06/19 at 14:00; Stop 06/06/19 at 15:59; Status DC Sodium Chloride 1,000 ml @ 75 mls/hr [id number] IV ; Start 06/06/19 at 14:34; Stop 06/07/19 at 14:33 Piperacillin Sod/ Tazobactam Sod 2.25 gm/Sodium Chloride 50 ml @ 100 mls/hr Q6HRS IV Last administered on 06/07/19at 06:33; Start 06/06/19 at 17:00 Doxycycline Hyclate 100 mg/ Dextrose 100 ml @ 50 mls/hr Q12HR IV Last administered on 06/07/19at 08:59; Start 06/06/19 at 21:00 Sodium Chloride (Normal Saline Flush) 3 ml QSHIFT PRN IV AFTER MEDS AND BLOOD DRAWS; Start 06/06/19 at 17:45 Sodium Chloride 1,000 ml @ 100 mls/hr Q10H IV Last administered on 06/07/19at 09:09; Start 06/06/19 at 17:33 Ondansetron HCl (Zofran) 4 mg PRN Q4HRS PRN IV NAUSEA/VOMITING; Start 06/06/19 at 17:45 Acetaminophen (Tylenol) 650 mg PRN Q4HRS PRN PO TEMP OVER 100.4F OR MILD PAIN; Start 06/06/19 at 17:45 Al Hydroxide/Mg Hydroxide (Mylanta Plus Xs) 30 ml PRN DAILY PRN PO HEARTBURN / GAS; Start 06/06/19 at 17:45 Clonidine HCl (Catapres) 0.1 mg PRN Q6HRS PRN PO SBP>160 OR DBP>90; Start 06/06/19 at 17:45 Docusate Sodium (Colace) 100 mg PRN BID PRN PO CONSTIPATION; Start 06/06/19 at 17:45 Albuterol/ Ipratropium (Duoneb) 3 ml Q4HRS NEB Last administered on 06/07/19at 07:57; Start 06/06/19 at 20:00 Guaifenesin (Robitussin) 200 mg PRN Q4HRS PRN PO COUGH; Start 06/06/19 at 17:45 Lorazepam (Ativan) 0.5 mg PRN Q4HRS PRN PO ANXIETY / AGITATION Last administere d on 06/07/19at 02:31; Start 06/06/19 at 17:45 Enoxaparin Sodium (Lovenox 40mg Syringe) 40 mg QHS SQ Last administered on 05/19 22:19; Start 06/06/19 at 21:00 Cyanocobalamin (Vitamin B-12) 1,000 mcg DAILY PO Last administered on 06/07/19at 08:59; Start 06/07/19 at 09:00 Non-Formulary Medication (Fluorouracil ) 10 ml BID TP ; Start 06/06/19 at 21:00; Stop 06/07/19 at 09:24; Status DC Fluticasone Propionate (Flonase) 2 spray PRN DAILY PRN NS allergies Last administered on 06/06/19at 22:28; Start 06/06/19 at 21:00 Zolpidem Tartrate (Ambien) 5 mg QHS PO ; Start 06/06/19 at 21:15 Oxybutynin Chloride (Ditropan) 5 mg BID PO Last administered on 06/07/19at 08:59; Start 06/06/19 at 21:00 Triamcinolone Acetonide (Kenalog 0.1%) 1 felix BID TP ; Start 06/06/19 at 21:30 Active Scripts Active Reported Triamcinolone Acetonide 0.025% Cream (Triamcinolone Acetonide) 15 Gm Cream..g. 1 Felix TP BID Fluorouracil 10 Ml Solution 10 Ml TP BID Hydrocodone-Apap 5-325 (Hydrocodone Bit/Acetaminophen) 1 Tab Tablet 1 Tab PO TID PRN Flonase Allergy Relief (Fluticasone Propionate) 9.9 Ml [place].susp 2 Sprays NS DA BREANA PRN Melatonin 3 Mg Tablet 1 Tab PO QHS Vitamin B-12 (Cyanocobalamin (Vitamin B-12)) 1,000 Mcg Tablet 1 Tab PO DAILY 30 Days Oxybutynin Chloride Er (Oxybutynin Chloride) 5 Mg Tab.er.24 1 Tab PO BID Vitals/I & O Vital Sign - Last 24 Hours 06/06/19 06/06/19 06/06/19 06/06/19 12:00 12:17 12:47 13:17 Temp 97.8 97.8 Pulse 74 75 70 77 Resp 15 B/P (MAP) 147/85 (105) Pulse Ox 94 95 94 95 O2 Delivery Room Air 06/06/19 06/06/19 06/06/19 06/06/19 16:00 17:00 19:00 20:00 Temp 98.6 98.0 98.6 98.0 Pulse 72 82 Resp 16 20 B/P (MAP) 141/86 (104) 142/84 (103) Pulse Ox 95 95 O2 Delivery Room Air Room Air Room Air Room Air 06/06/19 06/07/19 06/07/19 06/07/19 22:15 00:13 03:00 07:59 Temp 99.2 98.4 99.0 99.2 98.4 99.0 Pulse 85 82 93 Resp 21 20 24 B/P (MAP) 135/80 (98) 150/99 (116) 150/89 (109) Pulse Ox 94 93 95 95 O2 Delivery Room Air Room Air Room Air 06/07/19 08:08 Pulse Ox 96 O2 Delivery Room Air Intake and Output 06/06/19 06/06/19 06/07/19 15:00 23:00 07:00 Intake Total 500 ml 200 ml 300 ml Output Total 0 ml Balance 500 ml 200 ml 300 ml HEYDI ROBERT MD Jun 07, 2019 10:30
--- NOTE | 2019-06-07 12:59 | RAD ---
CT of the chest without contrast: Clinical History: Pulmonary infiltrate. Axial helical images of the chest were obtained without contrast. Ascending aorta is mildly dilated to 4.3 cm. There is linear opacities in the left lung base. There is gynecomastia on the left. There is no mediastinal or hilar lymphadenopathy. Impression: Left basal infiltrate likely discoid atelectasis. PQRS Compliance Statement: One or more of the following individualized dose reduction techniques were utilized for this examination: 1. Automated exposure control 2. Adjustment of the mA and/or kV according to patient size 3. Use of iterative reconstruction technique Electronically signed by: Dorian eLchuga III, MD (06/07/2019 12:56 PM) [facility]
--- NOTE | 2019-06-07 13:38 | PDOC2 ---
NEUROLOGY CONSULT Date of Admission Date of Admission DATE: 06/07/19 TIME: 13:25 Reason for Consult Reason for Consult: IMPRESSION: Dysartheria. Metabolic encephalopathy. Pneumonia. AFib. HTN. Dementia. Skin cancer. RECOMMENDATIONS/PLAN: Brain MRI w/o contrast. Treat medical diseases. ASA 81 mg daily. Lab: see orders. OT/PT. HISTORY OF THE PRESENT ILLNESS: This is an 79-year-old male patient with above medical diseases was brought to the ER of [facility] 5 days symptoms of of altered mental status has been hallucinating described as little boys in his room but there is dog poop everywhere the people are coming in now he is seeing things that are not there. This is unusual for him however is also been weak with being off balance. He has chronic speech problems as unclear of words, but his speech problems became worse in the past 2 days. No acute focalized sensory or motor deficits noted. PAST MEDICAL HISTORY: AFib; hypertension; cancer, details are not known, skin cancer. PAST SURGICAL HISTORY: Knee replacement. FAMILY HISTORY: Hypertension per chart. ALLERGY: NKDA MEDICATIONS: Refer to [facility] SOCIAL HISTORY: Denies smoking, drinking, and illicit drug use. REVIEW OF SYSTEMS: Constitutional: No malnutrition, weight loss, cachexia. Head: No traumatic brain or head injury. Skin: No edema, or rash. Ear: No infection. Eyes: No vision loss or color blindness. Nose: No bleeding or purulent discharges. Hearing: Hearing decrease. Neck: No injury. Cardiac: AFib, HTN. Pulmonary: Pneumonia. GI: No GI ulcer, GI bleeding. Urinary/genital: Prostatis. Endocrinologic: No cousin face, craniofacial dysmorphism, polydactyly. Skeletomuscular: Generalized weakness. Neurological: see HP. Psychiatric: Denies drug use/abuse. Otherwise, not -iyjgm review of systems. PHYSICAL EXAMINATION: General appearance is in subacute distress. HEENT: Normocephalic and nontraumatic. Eyes, nose, ears, and throat are unremarkable. Neck is supple. No lymphadenopathy. No crepitus. Cardiovascular: S1, S2. Pulmonary: decreased to auscultation bilaterally. Abdomen: Bowel sounds are positive. Extremities: No rash, lesions, or edema. No restriction of range of motion NEUROLOGICAL EXAMINATION: Awake. Not oriented to time, place but knew person. PERRL. EOMI. CN: no focal findings. Muscle tone: within normal. Muscle strength: 4+ DTR: 1-2 Plantar reflex: Flexor response bilaterally Gait: not examined in chair. Sensory exam: no abnormal findings. No other cerebellar signs elicited. F-T-N test fine. Current Medications Current Medications Current Medications Sodium Chloride 500 ml @ 500 mls/hr 1X ONCE IV Last administered on 06/06/19at 12:59; Start 06/06/19 at 12:45; Stop 06/06/19 at 13:44; Status DC Ceftriaxone Sodium (Rocephin) 1 gm 1X ONCE IVP Last administered on 06/06/19at 14:20; Start 06/06/19 at 14:00; Stop 06/06/19 at 14:01; Status DC Doxycycline Hyclate 100 mg/ Dextrose 100 ml @ 50 mls/hr 1X ONCE IV Last administered on 06/06/19at 14:21; Start 06/06/19 at 14:00; Stop 06/06/19 at 15:59; Status DC Sodium Chloride 1,000 ml @ 75 mls/hr [id number] IV ; Start 06/06/19 at 14:34; Stop 06/07/19 at 14:33 Piperacillin Sod/ Tazobactam Sod 2.25 gm/Sodium Chloride 50 ml @ 100 mls/hr Q6HRS IV Last administered on 06/07/19at 12:15; Start 06/06/19 at 17:00 Doxycycline Hyclate 100 mg/ Dextrose 100 ml @ 50 mls/hr Q12HR IV Last administered on 06/07/19at 08:59; Start 06/06/19 at 21:00 Sodium Chloride (Normal Saline Flush) 3 ml QSHIFT PRN IV AFTER MEDS AND BLOOD DRAWS; Start 06/06/19 at 17:45 Sodium Chloride 1,000 ml @ 100 mls/hr Q10H IV Last administered on 06/07/19at 09:09; Start 06/06/19 at 17:33 Ondansetron HCl (Zofran) 4 mg PRN Q4HRS PRN IV NAUSEA/VOMITING; Start 06/06/19 at 17:45 Acetaminophen (Tylenol) 650 mg PRN Q4HRS PRN PO TEMP OVER 100.4F OR MILD PAIN; Start 06/06/19 at 17:45 Al Hydroxide/Mg Hydroxide (Mylanta Plus Xs) 30 ml PRN DAILY PRN PO HEARTBURN / GAS; Start 06/06/19 at 17:45 Clonidine HCl (Catapres) 0.1 mg PRN Q6HRS PRN PO SBP>160 OR DBP>90; Start 06/06/19 at 17:45 Docusate Sodium (Colace) 100 mg PRN BID PRN PO CONSTIPATION; Start 06/06/19 at 17:45 Albuterol/ Ipratropium (Duoneb) 3 ml Q4HRS NEB Last administered on 06/07/19at 07:57; Start 06/06/19 at 20:00 Guaifenesin (Robitussin) 200 mg PRN Q4HRS PRN PO COUGH; Start 06/06/19 at 17:45 Lorazepam (Ativan) 0.5 mg PRN Q4HRS PRN PO ANXIETY / AGITATION Last administered on 06/07/19 02:31; Start 06/06/19 at 17:45 Enoxaparin Sodium (Lovenox 40mg Syringe) 40 mg QHS SQ Last administered on 06/06/19at 22:19; Start 06/06/19 at 21:00 Cyanocobalamin (Vitamin B-12) 1,000 mcg DAILY PO Last administered on 06/07/19 08:59; Start 06/07/19 at 09:00 Non-Formulary Medication (Fluorouracil ) 10 ml BID TP ; Start 06/06/19 at 21:00; Stop 06/07/19 at 09:24; Status DC Fluticasone Propionate (Flonase) 2 spray PRN DAILY PRN NS allergies Last administered on 06/06/19 22:28; Start 06/06/19 at 21:00 Zolpidem Tartrate (Ambien) 5 mg QHS PO ; Start 06/06/19 at 21:15 Oxybutynin Chloride (Ditropan) 5 mg BID PO Last administered on 06/07/19at 08:59; Start 06/06/19 at 21:00 Triamcinolone Acetonide (Kenalog 0.1%) 1 felix BID TP ; Start 06/06/19 at 21:30 Active Scripts Active Reported Triamcinolone Acetonide 0.025% Cream (Triamcinolone Acetonide) 15 Gm Cream..g. 1 Felix TP BID Fluorouracil 10 Ml Solution 10 Ml TP BID Hydrocodone-Apap 5-325 (Hydrocodone Bit/Acetaminophen) 1 Tab Tablet 1 Tab PO TID PRN Flonase Allergy Relief (Fluticasone Propionate) 9.9 Ml [place].susp 2 Sprays NS DAILY PRN Melatonin 3 Mg Tablet 1 Tab PO QHS Vitamin B-12 (Cyanocobalamin (Vitamin B-12)) 1,000 Mcg Tablet 1 Tab PO DAILY 30 Days Oxybutynin Chloride Er (Oxybutynin Chloride) 5 Mg Tab.er.24 1 Tab PO BID Allergies Allergies: Allergies Coded Allergies Type Severity Reaction Last Updated Verified No Known Drug Allergies 06/06/19 No ROS Review of System The patient denies any associated fevers, chills, headache, ear pain, rhinorrhea , sore throat, stiff neck, productive cough, chest pain, shortness of breath, back or flank pain, abdominal pain, nausea, vomiting, diarrhea, constipation, dysuria, rash, numbness, weakness, tingling, incontinence, difficulty ambulating, or diaphoresis. Physical Exam Physical Exam General: Well developed, well nourished, no acute distress, well appearing HEENT: Pupils equally round and reactive to light, EOMI, no discharge, normal conjunctiva Neck: Supple, no nuchal rigidity, no JVD, trachea midline, no tenderness Cardiac: RRR, no murmurs, no gallops, no rubs Chest/Lungs: CTAB, no wheeze, no rhonchi, no crackles Abdomen: soft, non-distended, no guarding, no peritoneal signs, non-tender Back: No tenderness Extremities: no edema, pulses intact, non-tender,capillary refill <3 sec bilateral upper and lower extremities, Neuro: Alert and oriented x 4, no focal deficits, normal speech Vitals Vitals: Vital Signs Date Time Temp Pulse Resp B/P (MAP) Pulse Ox O2 Delivery O2 Flow Rate FiO2 06/07/19 08:08 96 Room Air 06/07/19 07:59 99.0 93 24 150/89 (109) 99.0 Labs Labs Laboratory Tests Test 06/06/19 12:30 06/06/19 13:15 06/06/19 14:40 06/07/19 04:45 White Blood Count 8.5 x10^3/uL (4.0-11.0) 7.4 x10^3/uL (4.0-11.0) Red Blood Count 4.20 x10^6/uL (4.30-5.70) 3.96 x10^6/uL (4.30-5.70) Hemoglobin 14.3 g/dL (13.0-17.5) 13.6 g/dL (13.0-17.5) Hematocrit 42.4 % (39.0-53.0) 40.1 % (39.0-53.0) Mean Corpuscular Volume 101 fL (79-100) 101 fL (79-100) Mean Corpuscular Hemoglobin 34 pg (25-35) 34 pg (25-35) Mean Corpuscular Hemoglobin Concent 34 g/dL (31-37) 34 g/dL (31-37) Red Cell Distribution Width 14.0 % (11.5-14.5) 13.9 % (11.5-14.5) Platelet Count 207 x10^3/uL (140-400) 179 x10^3/uL (140-400) Neutrophils (%) (Auto) 71 % (31-73) 66 % (31-73) Lymphocytes (%) (Auto) 14 % (24-48) 17 % (24-48) Monocytes (%) (Auto) 11 % (0-9) 12 % (0-9) Eosinophils (%) (Auto) 3 % (0-3) 4 % (0-3) Basophils (%) (Auto) 2 % (0-3) 1 % (0-3) Neutrophils # (Auto) 6.1 x10^3/uL (1.8-7.7) 4.9 x10^3/uL (1.8-7.7) Lymphocytes # (Auto) 1.2 x10^3/uL (1.0-4.8) 1.3 x10^3/uL (1.0-4.8) Monocytes # (Auto) 0.9 x10^3/uL (0.0-1.1) 0.9 x10^3/uL (0.0-1.1) Eosinophils # (Auto) 0.2 x10^3/uL (0.0-0.7) 0.3 x10^3/uL (0.0-0.7) Basophils # (Auto) 0.1 x10^3/uL (0.0-0.2) 0.0 x10^3/uL (0.0-0.2) Sodium Level 135 mmol/L (136-145) 143 mmol/L (136-145) Potassium Level 4.5 mmol/L (3.5-5.1) 4.1 mmol/L (3.5-5.1) Chloride Level 103 mmol/L (98-107) 109 mmol/L (98-107) Carbon Dioxide Level 24 mmol/L (21-32) 24 mmol/L (21-32) Anion Gap 8 (6-14) 10 (6-14) Blood Urea Nitrogen 22 mg/dL (8-26) 18 mg/dL (8-26) Creatinine 1.3 mg/dL (0.7-1.3) 1.4 mg/dL (0.7-1.3) Estimated GFR (Cockcroft-Gault) 53.1 48.8 BUN/Creatinine Ratio 17 (6-20) Glucose Level 95 mg/dL (70-99) 84 mg/dL (70-99) Calcium Level 8.6 mg/dL (8.5-10.1) 8.2 mg/dL (8.5-10.1) Total Bilirubin 0.8 mg/dL (0.2-1.0) Aspartate Amino Transf (AST/SGOT) 26 U/L (15-37) Alanine Aminotransferase (ALT/SGPT) 19 U/L (16-63) Alkaline Phosphatase 59 U/L (46-116) Total Protein 6.4 g/dL (6.4-8.2) Albumin 3.7 g/dL (3.4-5.0) Albumin/Globulin Ratio 1.4 (1.0-1.7) Urine Collection Type Unknown Urine Color Yellow Urine Clarity Clear Urine pH 6.5 Urine Specific [place] 1.015 Urine Protein Negative mg/dL (NEG-TRACE) Urine Glucose (UA) Negative mg/dL (NEG) Urine Ketones (Stick) Negative mg/dL (NEG) Urine Blood Negative (NEG) Urine Nitrite Negative (NEG) Urine Bilirubin Negative (NEG) Urine Urobilinogen Dipstick 0.2 mg/dL (0.2 mg/dL) Urine Leukocyte Esterase Negative (NEG) Urine RBC 1-2 /HPF (0-2) Urine WBC Occ /HPF (0-4) Urine Bacteria 0 /HPF (0-FEW) Lactic Acid Level 1.0 mmol/L (0.4-2.0) Procalcitonin < 0.10 ng/mL (0.00-0.10) Thyroid Stimulating Hormone (TSH) 4.077 uIU/mL (0.358-3.74) Laboratory Tests Test 06/06/19 14:40 06/07/19 04:45 Lactic Acid Level 1.0 mmol/L (0.4-2.0) White Blood Count 7.4 x10^3/uL (4.0-11.0) Red Blood Count 3.96 x10^6/uL (4.30-5.70) Hemoglobin 13.6 g/dL (13.0-17.5) Hematocrit 40.1 % (39.0-53.0) Mean Corpuscular Volume 101 fL (79-100) Mean Corpuscular Hemoglobin 34 pg (25-35) Mean Corpuscular Hemoglobin Concent 34 g/dL (31-37) Red Cell Distribution Width 13.9 % (11.5-14.5) Platelet Count 179 x10^3/uL (140-400) Neutrophils (%) (Auto) 66 % (31-73) Lymphocytes (%) (Auto) 17 % (24-48) Monocytes (%) (Auto) 12 % (0-9) Eosinophils (%) (Auto) 4 % (0-3) Basophils (%) (Auto) 1 % (0-3) Neutrophils # (Auto) 4.9 x10^3/uL (1.8-7.7) Lymphocytes # (Auto) 1.3 x10^3/uL (1.0-4.8) Monocytes # (Auto) 0.9 x10^3/uL (0.0-1.1) Eosinophils # (Auto) 0.3 x10^3/uL (0.0-0.7) Basophils # (Auto) 0.0 x10^3/uL (0.0-0.2) Sodium Level 143 mmol/L (136-145) Potassium Level 4.1 mmol/L (3.5-5.1) Chloride Level 109 mmol/L (98-107) Carbon Dioxide Level 24 mmol/L (21-32) Anion Gap 10 (6-14) Blood Urea Nitrogen 18 mg/dL (8-26) Creatinine 1.4 mg/dL (0.7-1.3) Estimated GFR (Cockcroft-Gault) 48.8 Glucose Level 84 mg/dL (70-99) Calcium Level 8.2 mg/dL (8.5-10.1) Procalcitonin < 0.10 ng/mL (0.00-0.10) Thyroid Stimulating Hormone (TSH) 4.077 uIU/mL (0.358-3.74) DUARTE PEGUERO MD Jun 07, 2019 13:38
[2019-06-07] MEDS: ASPIRIN CHEWABLE 81 MG TABLET. PO SCH (14:00)
--- NOTE | 2019-06-07 18:50 | NUR ---
1500 IV fluids non-administered r/t previous bag still running.
[2019-06-07] MEDS: LACTOBACILLUS RHAMNOSUS GG 1 CAPSULE. PO SCH (20:56)
[2019-06-07] MEDS: ENOXAPARIN 40 MG/0.4 ML SYRINGE. SQ SCH (20:58)
[2019-06-07] MEDS: ZOLPIDEM 5 MG TABLET. PO SCH (21:00)
[2019-06-07] MEDS: guaiFENesin ORAL 200 MG/10 ML LIQUID. PO PRN (23:28)
[2019-06-08 03:05] VITALS: BP 149/95
[2019-06-08] MEDS: IPRATRPIUM/ALBUTEROL 0.5/2.5MG 3 ML NEBU. NEB SCH ×6 (04:05→19:13)
[2019-06-08] MEDS: PIPERACILLIN/TAZOBACTAM 2.25 GM in IV NORMAL SALINE 50ML 50 ML IV SCH ×3 (05:49→17:44)
[2019-06-08 07:00] VITALS: BP 148/89
[2019-06-08] MEDS: ASPIRIN CHEWABLE 81 MG TABLET. PO SCH (08:38)
[2019-06-08] MEDS: OXYBUTYNIN CHLORIDE 5 MG TABLET PO SCH ×2 (08:38→21:09)
[2019-06-08] MEDS: CYANOCOBALAMIN (VITAMIN B-12) 1,000 MCG TABLET. PO SCH (08:38)
[2019-06-08] MEDS: LACTOBACILLUS RHAMNOSUS GG 1 CAPSULE. PO SCH ×2 (08:38→21:09)
[2019-06-08] MEDS: DOXYCYCLINE HYCLATE 100 MG in IV DEXTROSE 5% 100ML 100 ML IV SCH ×2 (08:38→21:11)
[2019-06-08] MEDS ORDERED: GUAI100L12 PO (08:49)
[2019-06-08] MEDS ORDERED: ASPI-630 PO (08:49)
[2019-06-08] MEDS ORDERED: LORA0.5T96 PO (08:49)
[2019-06-08] MEDS ORDERED: DOXY100C14 PO (08:49)
--- NOTE | 2019-06-08 08:50 | SNU/HH DC ---
DISCHARGE ORDERS DISCHARGE INFORMATION: DISCHARGE DATE: Jun 08, 2019 FINAL DIAGNOSIS Problems Medical Problems: (1) Pneumonia Status: Acute CONDITION ON DISCHARGE: Stable CODE STATUS: Code Status: Full CARE HOME: SNF STAY <30 DAYS: Yes HOSPICE: HOSPICE: No HOSPICE EVAL & TREAT: No LTAC: ADMIT TO LTAC: No CHECKS AFTER DISCHARGE: CHECKS AFTER DISCHARGE: Check blood press - daily, Check blood sugar, ac/hs FOLLOW-UP: PHYSICIAN FOLLOW-UP: pcp upn snu dc TREATMENT/EQUIPMENT ORDERS: ADAPTIVE EQUIPMENT NEEDED: Front wheeled walker Physical Therapy For: Evalulation/Treatment Occupational Therapy For: Evaluation/Treatment Speech Language Pathology For: Evaluation/Treatment DISCHARGE MEDICATIONS: Home Meds Active Scripts Guaifenesin (GUAIFENESIN) 100 Mg/5 Ml Liquid, 200 MG PO PRN Q4HRS PRN for COUGH for 7 Days, LIQUID Prov:SELAM SANDOVAL MD 06/08/19 Lorazepam (ATIVAN) 0.5 Mg Tablet, 0.5 MG PO PRN Q4HRS PRN for ANXIETY / AGITATION, #30 TAB Prov:SELAM SANDOVAL MD 06/08/19 Aspirin (ASPIRIN) 81 Mg Tab.chew, 81 MG PO DAILYWBKFT for primary prevention, #60 TAB.CHEW Prov:SELAM SANDOVAL MD 06/08/19 Doxycycline Monohydrate (DOXYCYCLINE MONOHYDRATE) 100 Mg Capsule, 1 CAP PO BID for bronchitis, #14 CAP Prov:SELAM SANDOVAL MD 06/08/19 Reported Medications Triamcinolone Acetonide (TRIAMCINOLONE ACETONIDE 0.025% CREAM) 15 Gm Cream..g., 1 TONIA TP BID for flare up?, #30 GM 06/06/19 Fluorouracil (FLUOROURACIL) 10 Ml Solution, 10 ML TP BID for scalp areas, MISC 06/06/19 Hydrocodone Bit/Acetaminophen (HYDROCODONE-APAP 5-325 ) 1 Tab Tablet, 1 TAB PO TID PRN for PAIN, TAB 0 Refills 06/06/19 Fluticasone Propionate (Flonase Allergy Relief) 9.9 Ml [place].susp, 2 SPRAYS NS DAILY PRN for allergies, BOTTLE 06/06/19 Melatonin (MELATONIN) 3 Mg Tablet, 1 TAB PO QHS for insomnia, #30 TAB 2 Refills 06/06/19 Cyanocobalamin (Vitamin B-12) (VITAMIN B-12) 1,000 Mcg Tablet, 1 TAB PO DAILY for supplement for 30 Days, #30 TAB 0 Refills 06/06/19 Oxybutynin Chloride (OXYBUTYNIN CHLORIDE ER) 5 Mg Tab.er.24, 1 TAB PO BID for prostate, #30 TAB 5 Refills 06/06/19 SELAM SANDOVAL MD Jun 08, 2019 08:50
[2019-06-08] MEDS: TRIAMCINOLONE ACETONIDE 0.1% TOPICAL CREAM 15GM TUBE. TP SCH ×2 (09:00→21:32)
[2019-06-08] MEDS ORDERED: FLU VAX QS 2019-20 (36MOS+)/PF 0.5 ML SYRINGE. VAX IM ONE (09:15)
--- NOTE | 2019-06-08 09:18 | PDOC ---
PULMONARY PROGRESS NOTES Subjective PT NOT MORE SOA WANTS TO TO HOME Vitals Vital Signs Date Time Temp Pulse Resp B/P (MAP) Pulse Ox O2 Delivery O2 Flow Rate FiO2 06/08/19 07:22 95 Room Air 06/08/19 07:00 97.9 91 19 148/89 (108) 97.9 ROS: No Nausea, No Chest Pain, No Abdominal Pain, No Increase Cough General: Alert Lungs: Crackles Cardiovascular: S1, S2 Abdomen: Soft Neuro Exam: Alert Extremities: No Edema Skin: Warm Labs Laboratory Tests Test 06/06/19 12:30 06/06/19 13:15 06/06/19 14:40 06/07/19 04:45 White Blood Count 8.5 x10^3/uL (4.0-11.0) 7.4 x10^3/uL (4.0-11.0) Red Blood Count 4.20 x10^6/uL (4.30-5.70) 3.96 x10^6/uL (4.30-5.70) Hemoglobin 14.3 g/dL (13.0-17.5) 13.6 g/dL (13.0-17.5) Hematocrit 42.4 % (39.0-53.0) 40.1 % (39.0-53.0) Mean Corpuscular Volume 101 fL (79-100) 101 fL (79-100) Mean Corpuscular Hemoglobin 34 pg (25-35) 34 pg (25-35) Mean Corpuscular Hemoglobin Concent 34 g/dL (31-37) 34 g/dL (31-37) Red Cell Distribution Width 14.0 % (11.5-14.5) 13.9 % (11.5-14.5) Platelet Count 207 x10^3/uL (140-400) 179 x10^3/uL (140-400) Neutrophils (%) (Auto) 71 % (31-73) 66 % (31-73) Lymphocytes (%) (Auto) 14 % (24-48) 17 % (24-48) Monocytes (%) (Auto) 11 % (0-9) 12 % (0-9) Eosinophils (%) (Auto) 3 % (0-3) 4 % (0-3) Basophils (%) (Auto) 2 % (0-3) 1 % (0-3) Neutrophils # (Auto) 6.1 x10^3/uL (1.8-7.7) 4.9 x10^3/uL (1.8-7.7) Lymphocytes # (Auto) 1.2 x10^3/uL (1.0-4.8) 1.3 x10^3/uL (1.0-4.8) Monocytes # (Auto) 0.9 x10^3/uL (0.0-1.1) 0.9 x10^3/uL (0.0-1.1) Eosinophils # (Auto) 0.2 x10^3/uL (0.0-0.7) 0.3 x10^3/uL (0.0-0.7) Basophils # (Auto) 0.1 x10^3/uL (0.0-0.2) 0.0 x10^3/uL (0.0-0.2) Sodium Level 135 mmol/L (136-145) 143 mmol/L (136-145) Potassium Level 4.5 mmol/L (3.5-5.1) 4.1 mmol/L (3.5-5.1) Chloride Level 103 mmol/L (98-107) 109 mmol/L (98-107) Carbon Dioxide Level 24 mmol/L (21-32) 24 mmol/L (21-32) Anion Gap 8 (6-14) 10 (6-14) Blood Urea Nitrogen 22 mg/dL (8-26) 18 mg/dL (8-26) Creatinine 1.3 mg/dL (0.7-1.3) 1.4 mg/dL (0.7-1.3) Estimated GFR (Cockcroft-Gault) 53.1 48.8 BUN/Creatinine Ratio 17 (6-20) Glucose Level 95 mg/dL (70-99) 84 mg/dL (70-99) Calcium Level 8.6 mg/dL (8.5-10.1) 8.2 mg/dL (8.5-10.1) Total Bilirubin 0.8 mg/dL (0.2-1.0) Aspartate Amino Transf (AST/SGOT) 26 U/L (15-37) Alanine Aminotransferase (ALT/SGPT) 19 U/L (16-63) Alkaline Phosphatase 59 U/L (46-116) Total Protein 6.4 g/dL (6.4-8.2) Albumin 3.7 g/dL (3.4-5.0) Albumin/Globulin Ratio 1.4 (1.0-1.7) Urine Collection Type Unknown Urine Color Yellow Urine Clarity Clear Urine pH 6.5 Urine Specific [place] 1.015 Urine Protein Negative mg/dL (NEG-TRACE) Urine Glucose (UA) Negative mg/dL (NEG) Urine Ketones (Stick) Negative mg/dL (NEG) Urine Blood Negative (NEG) Urine Nitrite Negative (NEG) Urine Bilirubin Negative (NEG) Urine Urobilinogen Dipstick 0.2 mg/dL (0.2 mg/dL) Urine Leukocyte Esterase Negative (NEG) Urine RBC 1-2 /HPF (0-2) Urine WBC Occ /HPF (0-4) Urine Bacteria 0 /HPF (0-FEW) Lactic Acid Level 1.0 mmol/L (0.4-2.0) Procalcitonin < 0.10 ng/mL (0.00-0.10) Thyroid Stimulating Hormone (TSH) 4.077 uIU/mL (0.358-3.74) Test 06/07/19 13:00 Ammonia < 10 mcmol/L (11-34) Laboratory Tests Test 06/07/19 13:00 Ammonia < 10 mcmol/L (11-34) Medications Active Scripts Medications Dose Route/Sig Max Daily Dose Days Date Category Guaifenesin 100 Mg/5 Ml Liquid 200 Mg PO PRN Q4HRS PRN 7 06/08/19 Rx Ativan (Lorazepam) 0.5 Mg Tablet 0.5 Mg PO PRN Q4HRS PRN 06/08/19 Rx Aspirin 81 Mg Tab.chew 81 Mg PO DAILYWBKFT 06/08/19 Rx Doxycycline Monohydrate 100 Mg Capsule 1 Cap PO BID 06/08/19 Rx Triamcinolone Acetonide 0.025% Cream (Triamcinolone Acetonide) 15 Gm Cream..g. 1 Felix TP BID 06/06/19 Reported Fluorouracil 10 Ml Solution 10 Ml TP BID 06/06/19 Reported Hydrocodone-Apap 5-325 (Hydrocodone Bit/Acetaminophen) 1 Tab Tablet 1 Tab PO TID PRN 06/06/19 Reported Flonase Allergy Relief (Fluticasone Propionate) 9.9 Ml [place].susp 2 Sprays NS DAILY PRN 06/06/19 Reported Melatonin 3 Mg Tablet 1 Tab PO QHS 06/06/19 Reported Vitamin B-12 (Cyanocobalamin (Vitamin B-12)) 1,000 Mcg Tablet 1 Tab PO DAILY 30 06/06/19 Reported Oxybutynin Chloride Er (Oxybutynin Chloride) 5 Mg Tab.er.24 1 Tab PO BID 06/06/19 Reported Impression . IMPRESSION: 1. Acute respiratory failure secondary to pneumonia. 2. Abnormal chest x-ray. 3. Encephalopathy. 4. History of dementia. 5. 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 6. Hypertension. 7. Acute versus chronic kidney injury. Impression: Left basal infiltrate likely discoid atelectasis. Plan . CONTINUE THE SAME IMPROVING 1. Titrate FiO2 to keep O2 saturation 92%. 2. ABG. 3. Continue antibiotic. 4. Bronchodilator. MARILEE VALDERRAMA MD Jun 08, 2019 09:18
[2019-06-08 11:00] VITALS: BP 168/99
--- NOTE | 2019-06-08 11:30 | RAD ---
BRAIN W/O CONTRAST Date: 06/08/2019 1:17 PM Indication: Dysarthria Comparison: CT head 06/06/2019. Technique: Multiplanar multisequence MRI of the brain was performed without intravenous contrast using the standard protocol. Findings: No acute infarct. No acute or chronic hemorrhage. The ventricles are normal in size and configuration without hydrocephalus. Mild generalized cerebral and cerebellar volume loss. The scalp and calvarium are normal. The pituitary and sella are normal. No Chiari malformation. The visualized upper cervical spine is normal. The visualized orbits and globes are normal. The visualized paranasal sinuses are clear. The mastoid air cells are clear. Normal flow voids within the vertebral, basilar, and internal carotid arteries indicating patency. IMPRESSION: No acute infarct, hemorrhage, mass, or hydrocephalus. Electronically signed by: Vj Boston MD (06/08/2019 11:27 AM) [id number]
--- NOTE | 2019-06-08 11:47 | PDOC ---
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 Hx dementia, moderate severity Obesity History of Present Illness History of Present Illness OUt having MRI brain NEuro on board Sitter at bedside BEd flushed to the wall Dtr relays to me info HAllucinations still, has gotten more persistent and worse hence went to ER CT head ok, ammonia normal TSH 4 PT is NON ALCOHOL drinker, no smoker and a very conservative man, per dtr NO hx bipolar, maybe depression when 6 yrs ago from cancer (off anti deopressants) On zosyn q6 for what sounds like incidenatl PNA on CXR - I provided a copy PLAn; Check ESR Await MRI brain COnt zosyn NO swallow issues Add PT OT BUt he will refuse SNU and [facility] wants to take him back too and can do HH there dw dtr FULL CODE Vitals Vitals Vital Signs Date Time Temp Pulse Resp B/P (MAP) Pulse Ox O2 Delivery O2 Flow Rate FiO2 06/08/19 11:00 97.8 85 168/99 (122) 97 Room Air 97.8 06/08/19 07:00 19 Physical Exam General: Alert, Oriented X3, Cooperative, No acute distress Heart: Regular rate, Normal S1, Normal S2, No murmurs Lungs: Clear Abdomen: Normal bowel sounds, Soft, No tenderness, No hepatosplenomegaly Extremities: No clubbing, No cyanosis, No edema Skin: No rashes, No breakdown, No significant lesion Labs LABS Laboratory Tests Test 06/07/19 13:00 Ammonia < 10 mcmol/L (11-34) Review of Systems Review of Systems out having MRI brain Assessment and Plan Assessmemt and Plan Problems Medical Problems: (1) Pneumonia Status: Acute Comment Review of Relevant I have reviewed the following items julia (where applicable) has been applied. Labs Laboratory Tests Test 06/06/19 12:30 06/06/19 13:15 06/06/19 14:40 06/07/19 04:45 White Blood Count 8.5 x10^3/uL (4.0-11.0) 7.4 x10^3/uL (4.0-11.0) Red Blood Count 4.20 x10^6/uL (4.30-5.70) 3.96 x10^6/uL (4.30-5.70) Hemoglobin 14.3 g/dL (13.0-17.5) 13.6 g/dL (13.0-17.5) Hematocrit 42.4 % (39.0-53.0) 40.1 % (39.0-53.0) Mean Corpuscular Volume 101 fL (79-100) 101 fL (79-100) Mean Corpuscular Hemoglobin 34 pg (25-35) 34 pg (25-35) Mean Corpuscular Hemoglobin Concent 34 g/dL (31-37) 34 g/dL (31-37) Red Cell Distribution Width 14.0 % (11.5-14.5) 13.9 % (11.5-14.5) Platelet Count 207 x10^3/uL (140-400) 179 x10^3/uL (140-400) Neutrophils (%) (Auto) 71 % (31-73) 66 % (31-73) Lymphocytes (%) (Auto) 14 % (24-48) 17 % (24-48) Monocytes (%) (Auto) 11 % (0-9) 12 % (0-9) Eosinophils (%) (Auto) 3 % (0-3) 4 % (0-3) Basophils (%) (Auto) 2 % (0-3) 1 % (0-3) Neutrophils # (Auto) 6.1 x10^3/uL (1.8-7.7) 4.9 x10^3/uL (1.8-7.7) Lymphocytes # (Auto) 1.2 x10^3/uL (1.0-4.8) 1.3 x10^3/uL (1.0-4.8) Monocytes # (Auto) 0.9 x10^3/uL (0.0-1.1) 0.9 x10^3/uL (0.0-1.1) Eosinophils # (Auto) 0.2 x10^3/uL (0.0-0.7) 0.3 x10^3/uL (0.0-0.7) Basophils # (Auto) 0.1 x10^3/uL (0.0-0.2) 0.0 x10^3/uL (0.0-0.2) Sodium Level 135 mmol/L (136-145) 143 mmol/L (136-145) Potassium Level 4.5 mmol/L (3.5-5.1) 4.1 mmol/L (3.5-5.1) Chloride Level 103 mmol/L (98-107) 109 mmol/L (98-107) Carbon Dioxide Level 24 mmol/L (21-32) 24 mmol/L (21-32) Anion Gap 8 (6-14) 10 (6-14) Blood Urea Nitrogen 22 mg/dL (8-26) 18 mg/dL (8-26) Creatinine 1.3 mg/dL (0.7-1.3) 1.4 mg/dL (0.7-1.3) Estimated GFR (Cockcroft-Gault) 53.1 48.8 BUN/Creatinine Ratio 17 (6-20) Glucose Level 95 mg/dL (70-99) 84 mg/dL (70-99) Calcium Level 8.6 mg/dL (8.5-10.1) 8.2 mg/dL (8.5-10.1) Total Bilirubin 0.8 mg/dL (0.2-1.0) Aspartate Amino Transf (AST/SGOT) 26 U/L (15-37) Alanine Aminotransferase (ALT/SGPT) 19 U/L (16-63) Alkaline Phosphatase 59 U/L (46-116) Total Protein 6.4 g/dL (6.4-8.2) Albumin 3.7 g/dL (3.4-5.0) Albumin/Globulin Ratio 1.4 (1.0-1.7) Urine Collection Type Unknown Urine Color Yellow Urine Clarity Clear Urine pH 6.5 Urine Specific [place]inkley 1.015 Urine Protein Negative mg/dL (NEG-TRACE) Urine Glucose (UA) Negative mg/dL (NEG) Urine Ketones (Stick) Negative mg/dL (NEG) Urine Blood Negative (NEG) Urine Nitrite Negative (NEG) Urine Bilirubin Negative (NEG) Urine Urobilinogen Dipstick 0.2 mg/dL (0.2 mg/dL) Urine Leukocyte Esterase Negative (NEG) Urine RBC 1-2 /HPF (0-2) Urine WBC Occ /HPF (0-4) Urine Bacteria 0 /HPF (0-FEW) Lactic Acid Level 1.0 mmol/L (0.4-2.0) Vitamin B12 Level 608 pg/mL (247-911) Procalcitonin < 0.10 ng/mL (0.00-0.10) Thyroid Stimulating Hormone (TSH) 4.077 uIU/mL (0.358-3.74) Test 06/07/19 13:00 Ammonia < 10 mcmol/L (11-34) Laboratory Tests Test 06/07/19 13:00 Ammonia < 10 mcmol/L (11-34) Microbiology 06/06/19 Blood Culture - Preliminary, Resulted NO GROWTH AFTER 1 DAY Medications Current Medications Sodium Chloride 500 ml @ 500 mls/hr 1X ONCE IV Last administered on 06/06/19a t 12:59; Start 06/06/19 at 12:45; Stop 06/06/19 at 13:44; Status DC Ceftriaxone Sodium (Rocephin) 1 gm 1X ONCE IVP Last administered on 06/06/19at 14:20; Start 06/06/19 at 14:00; Stop 06/06/19 at 14:01; Status DC Doxycycline Hyclate 100 mg/ Dextrose 100 ml @ 50 mls/hr 1X ONCE IV Last administered on 06/06/19at 14:21; Start 06/06/19 at 14:00; Stop 06/06/19 at 15:59; Status DC Sodium Chloride 1,000 ml @ 75 mls/hr [id number] IV ; Start 06/06/19 at 14:34; Stop 06/07/19 at 14:33; Status DC Piperacillin Sod/ Tazobactam Sod 2.25 gm/Sodium Chloride 50 ml @ 100 mls/hr Q6HRS IV Last administered on 06/08/19at 11:26; Start 06/06/19 at 17:00 Doxycycline Hyclate 100 mg/ Dextrose 100 ml @ 50 mls/hr Q12HR IV Last administered on 06/08/19at 08:38; Start 06/06/19 at 21:00 Sodium Chloride (Normal Saline Flush) 3 ml QSHIFT PRN IV AFTER MEDS AND BLOOD DRAWS; Start 06/06/19 at 17:45 Sodium Chloride 1,000 ml @ 100 mls/hr Q10H IV Last administered on 06/07/19at 20:59; Start 06/06/19 at 17:33 Ondansetron HCl (Zofran) 4 mg PRN Q4HRS PRN IV NAUSEA/VOMITING; Start 06/06/19 at 17:45 Acetaminophen (Tylenol) 650 mg PRN Q4HRS PRN PO TEMP OVER 100.4F OR MILD PAIN; Start 06/06/19 at 17:45 Al Hydroxide/Mg Hydroxide (Mylanta Plus Xs) 30 ml PRN DAILY PRN PO HEARTBURN / GAS; Start 06/06/19 at 17:45 Clonidine HCl (Catapres) 0.1 mg PRN Q6HRS PRN PO SBP>160 OR DBP>90; Start 06/06/19 at 17:45 Docusate Sodium (Colace) 100 mg PRN BID PRN PO CONSTIPATION; Start 06/06/19 at 17:45 Albuterol/ Ipratropium (Duoneb) 3 ml Q4HRS NEB Last administered on 06/08/19at 07:22; Start 06/06/19 at 20:00 Guaifenesin (Robitussin) 200 mg PRN Q4HRS PRN PO COUGH Last administered on 06/07/19at 23:28; Start 06/06/19 at 17:45 Lorazepam (Ativan) 0.5 mg PRN Q4HRS PRN PO ANXIETY / AGITATION Last administered on 06/07/19at 23:28; Start 06/06/19 at 17:45 Enoxaparin Sodium (Lovenox 40mg Syringe) 40 mg QHS SQ Last administered on 06/07/19at 20:58; Start 06/06/19 at 21:00 Cyanocobalamin (Vitamin B-12) 1,000 mcg DAILY PO Last administered on at 08:38; Start 06/07/19 at 09:00 Non-Formulary Medication (Fluorouracil ) 10 ml BID TP ; Start 06/06/19 at 21:00; Stop 06/07/19 at 09:24; Status DC Fluticasone Propionate (Flonase) 2 spray PRN DAILY PRN NS allergies Last administered on 06/06/19at 22:28; Start 06/06/19 at 21:00 Zolpidem Tartrate (Ambien) 5 mg QHS PO ; Start 06/06/19 at 21:15 Oxybutynin Chloride (Ditropan) 5 mg BID PO Last administered on 06/08/19at 08:38; Start 06/06/19 at 21:00 Triamcinolone Acetonide (Kenalog 0.1%) 1 felix BID TP ; Start 06/06/19 at 21:30 Aspirin (Children'S Aspirin) 81 mg DAILYWBKFT PO Last administered on 06/08/19at 08:38; Start 06/07/19 at 14:00 Lactobacillus Rhamnosus (Culturelle) 1 cap BID PO Last administered on 06/08/19at 08:38; Start 06/07/19 at 21:00 Influenza Virus Vaccine Quadrival (Afluria Quad 2019-20 (3yr Up) Syringe) 0.5 ml ONCE ONCE VAX IM Last administered on 06/08/19at 11:26; Start 06/08/19 at 09:15; Stop 06/08/19 at 09:18; Status DC Active Scripts Active Guaifenesin 100 Mg/5 Ml Liquid 200 Mg PO PRN Q4HRS PRN 7 Days Ativan (Lorazepam) 0.5 Mg Tablet 0.5 Mg PO PRN Q4HRS PRN Aspirin 81 Mg Tab.chew 81 Mg PO DAILYWBKFT Doxycycline Monohydrate 100 Mg Capsule 1 Cap PO BID Reported Triamcinolone Acetonide 0.025% Cream (Triamcinolone Acetonide) 15 Gm Cream..g. 1 Felix TP BID Fluorouracil 10 Ml Solution 10 Ml TP BID Hydrocodone-Apap 5-325 (Hydrocodone Bit/Acetaminophen) 1 Tab Tablet 1 Tab PO TID PRN Flonase Allergy Relief (Fluticasone Propionate) 9.9 Ml [place].susp 2 Sprays NS DAILY PRN Melatonin 3 Mg Tablet 1 Tab PO QHS Vitamin B-12 (Cyanocobalamin (Vitamin B-12)) 1,000 Mcg Tablet 1 Tab PO DAILY 30 Days Oxybutynin Chloride Er (Oxybutynin Chloride) 5 Mg Tab.er.24 1 Tab PO BID Vitals/I & O Vital Sign - Last 24 Hours 06/07/19 06/07/19 06/07/19 06/07/19 11:59 15:00 15:53 16:30 Temp 97.8 97.8 Pulse 74 Resp 22 B/P (MAP) 135/87 (103) Pulse Ox 95 97 O2 Delivery Room Air Room Air Room Air Room Air 06/07/19 06/07/19 06/07/19 06/07/19 19:00 20:00 20:07 23:14 Temp 97.9 98.7 97.9 98.7 Pulse 75 78 Resp 20 18 B/P (MAP) 138/86 (103) 124/94 (104) Pulse Ox 94 95 94 O2 Delivery Room Air Room Air Room Air Room Air 06/08/19 06/08/19 06/08/19 06/08/19 00:05 03:05 04:16 07:00 Temp 97.9 97.9 97.9 97.9 Pulse 87 91 Resp 18 19 B/P (MAP) 149/95 (113) 148/89 (108) Pulse Ox 95 93 O2 Delivery Room Air Room Air Room Air Room Air 06/08/19 06/08/19 06/08/19 07:22 07:30 11:00 Temp 97.8 97.8 Pulse 85 B/P (MAP) 168/99 (122) Pulse Ox 95 97 O2 Delivery Room Air Room Air Room Air Intake and Output 06/07/19 06/07/19 06/08/19 15:00 23:00 07:00 Intake Total 250 ml 200 ml 1540 ml Output Total 600 ml Balance 250 ml 200 ml 940 ml SELAM SANDOVAL MD Jun 08, 2019 11:47
[2019-06-08] MEDS: guaiFENesin ORAL 200 MG/10 ML LIQUID. PO PRN ×2 (13:29→19:36)
--- NOTE | 2019-06-08 14:23 | PDOC ---
PROGRESS NOTES Assessment Assessment Dysarthria. Metabolic encephalopathy. Pneumonia. AFib. HTN. Dementia. Skin cancer. No evidence of acute CVA this time. RECOMMENDATIONS/PLAN: Treat medical diseases. ASA 81 mg daily. OT/PT. Discussed with his daughter at bedside on 06/08/19. HISTORY OF THE PRESENT ILLNESS: This is an 79-year-old male patient with above medical diseases was brought to the ER of [facility] 5 days symptoms of of altered mental status has been hallucinating described as little boys in his room but there is dog poop everywhere the people are coming in now he is seeing things that are not there. This is unusual for him however is also been weak with being off balance. He has chronic speech problems as unclear of words, but his speech problems became worse in the past 2 days. No acute focalized sensory or motor deficits noted. PAST MEDICAL HISTORY: AFib; hypertension; cancer, details are not known, skin cancer. PAST SURGICAL HISTORY: Knee replacement. FAMILY HISTORY: Hypertension per chart. ALLERGY: NKDA MEDICATIONS: Refer to [facility] SOCIAL HISTORY: Denies smoking, drinking, and illicit drug use. REVIEW OF SYSTEMS: Constitutional: No malnutrition, weight loss, cachexia. Head: No traumatic brain or head injury. Skin: No edema, or rash. Ear: No infection. Eyes: No vision loss or color blindness. Nose: No bleeding or purulent discharges. Hearing: Hearing decrease. Neck: No injury. Cardiac: AFib, HTN. Pulmonary: Pneumonia. GI: No GI ulcer, GI bleeding. Urinary/genital: Prostatis. Endocrinologic: No cousin face, craniofacial dysmorphism, polydactyly. Skeletomuscular: Generalized weakness. Neurological: see HP. Psychiatric: Denies drug use/abuse. Otherwise, not [id number] review of systems. PHYSICAL EXAMINATION: General appearance is in subacute distress. HEENT: Normocephalic and nontraumatic. Eyes, nose, ears, and throat are unremarkable. Neck is supple. No lymphadenopathy. No crepitus. Cardiovascular: S1, S2. Pulmonary: decreased to auscultation bilaterally. Abdomen: Bowel sounds are positive. Extremities: No rash, lesions, or edema. No restriction of range of motion NEUROLOGICAL EXAMINATION: Awake. Not oriented to time, but knew place and person. PERRL. EOMI. CN: no focal findings. Muscle tone: within normal. Muscle strength: 4+ DTR: 1-2 Plantar reflex: Flexor response bilaterally Gait: not examined in chair. Sensory exam: no abnormal findings. No other cerebellar signs elicited. F-T-N test fine. Objective Objective Vital Signs Date Time Temp Pulse Resp B/P (MAP) Pulse Ox O2 Delivery O2 Flow Rate FiO2 06/08/19 11:44 97 Room Air 06/08/19 11:00 97.8 85 168/99 (122) 97.8 06/08/19 07:00 19 Intake and Output 06/08/19 07:00 Intake Total 1990 ml Output Total 600 ml Balance 1390 ml Intake Oral 690 ml IV Total 1300 ml Output Urine Total 600 ml # Voids 2 # Bowel Movements 1 Vitals Signs Vitals VS - Last 72 Hours, by Label Date Time Temp Pulse Resp B/P (MAP) Pulse Ox O2 Delivery O2 Flow Rate FiO2 06/08/19 11:44 97 Room Air 06/08/19 11:00 97.8 85 168/99 (122) 97 Room Air 97.8 06/08/19 07:30 Room Air 06/08/19 07:22 95 Room Air 06/08/19 07:00 97.9 91 19 148/89 (108) 93 Room Air 97.9 06/08/19 04:16 Room Air 06/08/19 03:05 97.9 87 18 149/95 (113) 95 Room Air 97.9 06/08/19 00:05 Room Air 06/07/19 23:14 98.7 78 18 124/94 (104) 94 Room Air 98.7 06/07/19 20:07 95 Room Air 06/07/19 20:00 Room Air 06/07/19 19:00 97.9 75 20 138/86 (103) 94 Room Air 97.9 06/07/19 16:30 97.8 74 22 135/87 (103) 97 Room Air 97.8 06/07/19 15:53 95 Room Air 06/07/19 15:00 Room Air 06/07/19 11:59 Room Air 06/07/19 08:08 96 Room Air 06/07/19 08:00 Room Air 06/07/19 07:59 99.0 93 24 150/89 (109) 95 Room Air 99.0 Laboratory Laboratory Laboratory Tests Test 06/08/19 12:30 Erythrocyte Sedimentation Rate 10 (0-15) Microbiology 06/06/19 Blood Culture - Preliminary, Resulted NO GROWTH AFTER 1 DAY Medication Medications Current Medications Influenza Virus Vaccine Quadrival (Afluria Quad 2018- (3yr Up) Syringe) 0.5 ml ONCE ONCE VAX IM Last administered on 06/08/19at 11:26; Start 06/08/19 at 09:15; Stop 06/08/19 at 09:18; Status DC Lactobacillus Rhamnosus (Culturelle) 1 cap BID PO Last administered on 06/08/19at 08:38; Start 06/07/19 at 21:00 Comment Review of Relevant I have reviewed the following items julia (where applicable) has been applied. DUARTE PEGUERO MD Jun 08, 2019 14:23
[2019-06-08] MEDS: IV NORMAL SALINE 1000ML BAG 1,000 ML IV SCH (14:46)
[2019-06-08 14:52] VITALS: BP 159/95
--- NOTE | 2019-06-08 16:04 | NUR ---
SW following pt for dc planning. Chart reviewed and discussed with RN. Pt is a resident at [facility], phone: [phone], fax: [phone]. SW spoke with pt and pt's daughter, Deana, phone" [phone], Pt does not want SNF but agreeable with [facility]. SW phoned and faxed clinicals to [place] and [facility]. SW will continue to follow.
[2019-06-08 19:00] VITALS: BP 152/92
[2019-06-08] MEDS: ZOLPIDEM 5 MG TABLET. PO SCH (21:09)
[2019-06-08] MEDS: ENOXAPARIN 40 MG/0.4 ML SYRINGE. SQ SCH (21:10)
[2019-06-08 23:00] VITALS: BP 155/87
[2019-06-08] MEDS: LORazepam 0.5 MG TABLET PO PRN (23:21)
[2019-06-09] MEDS: PIPERACILLIN/TAZOBACTAM 2.25 GM in IV NORMAL SALINE 50ML 50 ML IV SCH ×3 (00:54→13:37)
[2019-06-09 02:22] VITALS: BP 132/84
[2019-06-09] MEDS: IPRATRPIUM/ALBUTEROL 0.5/2.5MG 3 ML NEBU. NEB SCH ×5 (02:49→15:56)
[2019-06-09 05:42] LABS: CALCIUM 8.4 mg/dL (8.5-10.1); CREATININE 1.3 mg/dL (0.7-1.3); GFR 53.1; POTASSIUM 4.3 mmol/L (3.5-5.1)
[2019-06-09] MEDS: IV NORMAL SALINE 1000ML BAG 1,000 ML IV SCH ×2 (06:11→09:59)
[2019-06-09 07:00] VITALS: BP 130/84
[2019-06-09] MEDS: TRIAMCINOLONE ACETONIDE 0.1% TOPICAL CREAM 15GM TUBE. TP SCH (09:00)
--- NOTE | 2019-06-09 09:35 | PDOC ---
PULMONARY PROGRESS NOTES Subjective PT NOT MORE SOA WANTS TO TO HOME Vitals Vital Signs Date Time Temp Pulse Resp B/P (MAP) Pulse Ox O2 Delivery O2 Flow Rate FiO2 06/09/19 08:08 95 Room Air 06/09/19 07:00 97.4 91 20 130/84 (99) 97.4 ROS: No Nausea, No Chest Pain, No Abdominal Pain, No Increase Cough General: Alert Lungs: Crackles Cardiovascular: S1, S2 Abdomen: Soft Neuro Exam: Alert Extremities: No Edema Skin: Warm Labs Laboratory Tests Test 06/07/19 13:00 06/08/19 12:30 06/09/19 03:19 Ammonia < 10 mcmol/L (11-34) Erythrocyte Sedimentation Rate 10 (0-15) Sodium Level 143 mmol/L (136-145) Potassium Level 4.3 mmol/L (3.5-5.1) Chloride Level 109 mmol/L (98-107) Carbon Dioxide Level 23 mmol/L (21-32) Anion Gap 11 (6-14) Blood Urea Nitrogen 10 mg/dL (8-26) Creatinine 1.3 mg/dL (0.7-1.3) Estimated GFR (Cockcroft-Gault) 53.1 Glucose Level 83 mg/dL (70-99) Calcium Level 8.4 mg/dL (8.5-10.1) Laboratory Tests Test 06/08/19 12:30 06/09/19 03:19 Erythrocyte Sedimentation Rate 10 (0-15) Sodium Level 143 mmol/L (136-145) Potassium Level 4.3 mmol/L (3.5-5.1) Chloride Level 109 mmol/L (98-107) Carbon Dioxide Level 23 mmol/L (21-32) Anion Gap 11 (6-14) Blood Urea Nitrogen 10 mg/dL (8-26) Creatinine 1.3 mg/dL (0.7-1.3) Estimated GFR (Cockcroft-Gault) 53.1 Glucose Level 83 mg/dL (70-99) Calcium Level 8.4 mg/dL (8.5-10.1) Medications Active Scripts Medications Dose Route/Sig Max Daily Dose Days Date Category Guaifenesin 100 Mg/5 Ml Liquid 200 Mg PO PRN Q4HRS PRN 7 06/08/19 Rx Ativan (Lorazepam) 0.5 Mg Tablet 0.5 Mg PO PRN Q4HRS PRN 06/08/19 Rx Aspirin 81 Mg Tab.chew 81 Mg PO DAILYWBKFT 06/08/19 Rx Doxycycline Monohydrate 100 Mg Capsule 1 Cap PO BID 06/08/19 Rx Triamcinolone Acetonide 0.025% Cream (Triamcinolone Acetonide) 15 Gm Cream..g. 1 Felix TP BID 06/06/19 Reported Fluorouracil 10 Ml Solution 10 Ml TP BID 06/06/19 Reported Hydrocodone-Apap 5-325 (Hydrocodone Bit/Acetaminophen) 1 Tab Tablet 1 Tab PO TID PRN 06/06/19 Reported Flonase Allergy Relief (Fluticasone Propionate) 9.9 Ml [place].susp 2 Sprays NS DAILY PRN 06/06/19 Reported Melatonin 3 Mg Tablet 1 Tab PO QHS 06/06/19 Reported Vitamin B-12 (Cyanocobalamin (Vitamin B-12)) 1,000 Mcg Tablet 1 Tab PO DAILY 30 06/06/19 Reported Oxybutynin Chloride Er (Oxybutynin Chloride) 5 Mg Tab.er.24 1 Tab PO BID 06/06/19 Reported Impression . IMPRESSION: 1. Acute respiratory failure secondary to pneumonia. 2. Abnormal chest x-ray. 3. Encephalopathy. 4. History of dementia. 5. 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 6. Hypertension. 7. Acute versus chronic kidney injury. Impression: Left basal infiltrate likely discoid atelectasis. Plan . D/W TODAY PT TO FOLLOW UP WITH ME IN NOV D/W TEAM AND DAUGHTER AT BEDSIDE MARILEE VALDERRAMA MD Jun 09, 2019 09:35
[2019-06-09] MEDS: DOXYCYCLINE HYCLATE 100 MG in IV DEXTROSE 5% 100ML 100 ML IV SCH (10:24)
[2019-06-09] MEDS: LACTOBACILLUS RHAMNOSUS GG 1 CAPSULE. PO SCH (10:27)
[2019-06-09] MEDS: ASPIRIN CHEWABLE 81 MG TABLET. PO SCH (10:28)
[2019-06-09] MEDS: OXYBUTYNIN CHLORIDE 5 MG TABLET PO SCH (10:28)
[2019-06-09] MEDS: CYANOCOBALAMIN (VITAMIN B-12) 1,000 MCG TABLET. PO SCH (10:28)
[2019-06-09 10:52] VITALS: BP 103/59
--- NOTE | 2019-06-09 12:26 | SNU/HH DC ---
DISCHARGE WITH HOME HEALTH DISCHARGE INFORMATION: Discharge Date: Jun 09, 2019 Final Diagnosis: Problems Medical Problems: (1) Pneumonia Status: Acute Condition on Discharge: Stable CODE STATUS: Code Status: Full HOME HEALTH: Face to Face: I certify this patient is under my care and that I, or a nurse practitioner or physician's assistant professor of spanish working with me, had a face to face encounter that meets the physician face to face encounter requirements with this patient on []. RN For Eval/Treatment: Yes Physical Therapy For: Evalulation/Treatment Occupational Therapy For: Evaluation/Treatment Speech Language Pathology For: Evaluation/Treatment Home Health Aide For: Self-care SHEET METAL ENGINEER For: Community Resources Pt Meets Homebound Status: Unsteady balance w/ amb, CHECKS AFTER DISCHARGE: Checks after discharge: Check blood press - daily, Check blood sugar, ac/hs FOLLOW-UP: Follow up with: pcp re dementia TREATMENT/EQUIPMENT ORDERS: Adaptive Equipment Issued: Front wheeled walker CERTIFICATION STATEMENT: Certification Statement: Certification Statement: Based on the above finding, I certify that this patient is confined to the home and needs intermittent long term care, physical therapy and/or speech therapy, or continues to need occupational therapy.~ This patient is under my care, and I have initiated the establishment of the plan of care.~ This patient will be followed by myself or a community physician who will periodically review the plan of care. Home Meds Active Scripts Guaifenesin (GUAIFENESIN) 100 Mg/5 Ml Liquid, 200 MG PO PRN Q4HRS PRN for COUGH for 7 Days, LIQUID Prov:SELAM SANDOVAL MD 06/08/19 Lorazepam (ATIVAN) 0.5 Mg Tablet, 0.5 MG PO PRN Q4HRS PRN for ANXIETY / AGITATION, #30 TAB Prov:SELAM SANDOVAL MD 06/08/19 Aspirin (ASPIRIN) 81 Mg Tab.chew, 81 MG PO DAILYWBKFT for primary prevention, #60 TAB.CHEW Prov:SELAM SANDOVAL MD 06/08/19 Doxycycline Monohydrate (DOXYCYCLINE MONOHYDRATE) 100 Mg Capsule, 1 CAP PO BID for bronchitis, #14 CAP Prov:SELAM SANDOVAL MD 06/08/19 Reported Medications Triamcinolone Acetonide (TRIAMCINOLONE ACETONIDE 0.025% CREAM) 15 Gm Cream..g., 1 TONIA TP BID for flare up?, #30 GM 06/06/19 Fluorouracil (FLUOROURACIL) 10 Ml Solution, 10 ML TP BID for scalp areas, MISC 06/06/19 Hydrocodone Bit/Acetaminophen (HYDROCODONE-APAP 5-325 ) 1 Tab Tablet, 1 TAB PO TID PRN for PAIN, TAB 0 Refills 06/06/19 Fluticasone Propionate (Flonase Allergy Relief) 9.9 Ml [place].susp, 2 SPRAYS NS DAILY PRN for allergies, BOTTLE 06/06/19 Melatonin (MELATONIN) 3 Mg Tablet, 1 TAB PO QHS for insomnia, #30 TAB 2 Refills 06/06/19 Cyanocobalamin (Vitamin B-12) (VITAMIN B-12) 1,000 Mcg Tablet, 1 TAB PO DAILY for supplement for 30 Days, #30 TAB 0 Refills 06/06/19 Oxybutynin Chloride (OXYBUTYNIN CHLORIDE ER) 5 Mg Tab.er.24, 1 TAB PO BID for prostate, #30 TAB 5 Refills 06/06/19 SELAM SANDOVAL MD Jun 09, 2019 12:26
--- NOTE | 2019-06-09 12:30 | PDOC3 ---
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 Hx dementia, moderate severity Obesity Final Diagnosis Problems Medical Problems: (1) Pneumonia Status: Acute Brief Hospital Course Allergies Allergies Coded Allergies Type Severity Reaction Last Updated Verified No Known Drug Allergies 06/06/19 No Vital Signs Vital Signs Date Time Temp Pulse Resp B/P (MAP) Pulse Ox O2 Delivery O2 Flow Rate FiO2 06/09/19 10:52 97.7 86 18 103/59 (74) 94 Room Air 97.7 Lab Results Laboratory Tests Test 06/07/19 13:00 06/08/19 12:30 06/09/19 03:19 Ammonia < 10 mcmol/L (11-34) Erythrocyte Sedimentation Rate 10 (0-15) Sodium Level 143 mmol/L (136-145) Potassium Level 4.3 mmol/L (3.5-5.1) Chloride Level 109 mmol/L (98-107) Carbon Dioxide Level 23 mmol/L (21-32) Anion Gap 11 (6-14) Blood Urea Nitrogen 10 mg/dL (8-26) Creatinine 1.3 mg/dL (0.7-1.3) Estimated GFR (Cockcroft-Gault) 53.1 Glucose Level 83 mg/dL (70-99) Calcium Level 8.4 mg/dL (8.5-10.1) Laboratory Tests Test 06/08/19 12:30 06/09/19 03:19 Erythrocyte Sedimentation Rate 10 (0-15) Sodium Level 143 mmol/L (136-145) Potassium Level 4.3 mmol/L (3.5-5.1) Chloride Level 109 mmol/L (98-107) Carbon Dioxide Level 23 mmol/L (21-32) Anion Gap 11 (6-14) Blood Urea Nitrogen 10 mg/dL (8-26) Creatinine 1.3 mg/dL (0.7-1.3) Estimated GFR (Cockcroft-Gault) 53.1 Glucose Level 83 mg/dL (70-99) Calcium Level 8.4 mg/dL (8.5-10.1) Brief Hospital Course Mr. Canela is a 79 old white male who was brought in by concerned dtr bec of persistent and more pronounce hallucinations, non drinker, no smoking, clean living, no hx of mental condition. STroke work up neg, ESR only 10, HE needs placement but they opted for [facility]> They can meet his needs there including dysphagia diet/[employer] CLERK eval if needed, He needed a sitter at one point, Better mentally but can be off and on, from cancer a decade ago FULL CODE DW dtr at bedside HH today RX on chart Incidental? PNA on imaging - doxy on file, non toxic appearing Discharge Information Condition at Discharge: Improved, Stable Disposition/Orders: D/C to Home w/ HH Scheduled Aspirin (Aspirin) 81 Mg Tab.chew, 81 MG PO [id number] for primary prevention, #60 Prescribed by: SELAM SANDOVAL on 06/08/19 0849 Cyanocobalamin (Vitamin B-12) (Vitamin B-12) 1,000 Mcg Tablet, 1 TAB PO DAILY for supplement for 30 Days, #30 Ref 0 (Reported) Entered as Reported by: LISSETH KWON on 06/06/192051 Last Action: Continued on 06/06/192099 by GENARO ABRAHAM RN Doxycycline Monohydrate (Doxycycline Monohydrate) 100 Mg Capsule, 1 CAP PO BID for bronchitis, #14 Prescribed by: SELAM SANDOVAL on 06/08/19 0849 Fluorouracil (Fluorouracil) 10 Ml Solution, 10 ML TP BID for scalp areas, (Reported) Entered as Reported by: LISSETH KWON on 06/06/192051 Last Action: Converted on 06/06/192099 by GENARO ABRAHAM RN Melatonin (Melatonin) 3 Mg Tablet, 1 TAB PO QHS for insomnia, #30 Ref 2 (Reported) Entered as Reported by: LISSETH KWON on 06/06/192051 Last Action: Converted on 06/06/192099 by GENARO ABRAHAM RN Oxybutynin Chloride (Oxybutynin Chloride Er) 5 Mg Tab.er.24, 1 TAB PO BID for prostate, #30 Ref 5 (Reported) Entered as Reported by: LISSETH KWON on 06/06/192051 Last Action: Converted on 06/06/192099 by GENARO ABRAHAM RN Triamcinolone Acetonide (Triamcinolone Acetonide 0.025% Cream) 15 Gm Cream..g., 1 TONIA TP BID for flare up?, #30 (Reported) Entered as Reported by: LISSETH KWON on 06/06/192051 Last Action: Converted on 06/06/192099 by GENARO ABRAHAM RN Scheduled PRN Fluticasone Propionate (Flonase Allergy Relief) 9.9 Ml Hardy.susp, 2 SPRAYS NS DAILY PRN for allergies, (Reported) Entered as Reported by: LISSETH KWON on 06/06/192051 Last Action: Converted on 06/06/192099 by GNEARO ABRAHAM RN Guaifenesin (Guaifenesin) 100 Mg/5 Ml Liquid, 200 MG PO PRN Q4HRS PRN for COUGH for 7 Days Prescribed by: SELAM SANDOVAL on 06/08/19 0849 Hydrocodone Bit/Acetaminophen (Hydrocodone-Apap 5-325 ) 1 Tab Tablet, 1 TAB PO TID PRN for PAIN, Ref 0 (Reported) Entered as Reported by: LISSETH KWON on 06/06/192051 Last Action: Reviewed on 06/06/192052 by LISSETH KWON Lorazepam (Ativan) 0.5 Mg Tablet, 0.5 MG PO PRN Q4HRS PRN for ANXIETY / AGITATION, #30 Prescribed by: SELAM SANDOVAL on 06/08/19 0849 SELAM SANDOVAL MD Jun 09, 2019 12:30
[2019-06-09] MEDS: guaiFENesin ORAL 200 MG/10 ML LIQUID. PO PRN (13:34)
--- NOTE | 2019-06-09 13:39 | PDOC ---
PROGRESS NOTES Assessment Assessment Dysarthria. Metabolic encephalopathy. Pneumonia. AFib. HTN. Dementia. Skin cancer. No evidence of acute CVA this time. RECOMMENDATIONS/PLAN: Treat medical diseases. ASA 81 mg daily. OT/PT. FU with PCP. Discussed with his daughter again t bedside on 06/09/19. HISTORY OF THE PRESENT ILLNESS: This is an 79-year-old male patient with above medical diseases was brought to the ER of [facility] 5 days symptoms of of altered mental status has been hallucinating described as little boys in his room but there is dog poop everywhere the people are coming in now he is seeing things that are not there. This is unusual for him however is also been weak with being off balance. He has chronic speech problems as unclear of words, but his speech problems became worse in the past 2 days. No acute focalized sensory or motor deficits noted. His speech is much improved on 06/09/19, in fact, it is found as a chronic intermittent problems. PAST MEDICAL HISTORY: AFib; hypertension; cancer, details are not known, skin cancer. PAST SURGICAL HISTORY: Knee replacement. FAMILY HISTORY: Hypertension per chart. ALLERGY: NKDA MEDICATIONS: Refer to [facility] SOCIAL HISTORY: Denies smoking, drinking, and illicit drug use. REVIEW OF SYSTEMS: Constitutional: No malnutrition, weight loss, cachexia. Head: No traumatic brain or head injury. Skin: No edema, or rash. Ear: No infection. Eyes: No vision loss or color blindness. Nose: No bleeding or purulent discharges. Hearing: Hearing decrease. Neck: No injury. Cardiac: AFib, HTN. Pulmonary: Pneumonia. GI: No GI ulcer, GI bleeding. Urinary/genital: Prostatis. Endocrinologic: No cousin face, craniofacial dysmorphism, polydactyly. Skeletomuscular: Generalized weakness. Neurological: see HP. Psychiatric: Denies drug use/abuse. Otherwise, not [id number] review of systems. PHYSICAL EXAMINATION: General appearance is in subacute distress. HEENT: Normocephalic and nontraumatic. Eyes, nose, ears, and throat are u nremarkable. Neck is supple. No lymphadenopathy. No crepitus. Cardiovascular: S1, S2. Pulmonary: decreased to auscultation bilaterally. Abdomen: Bowel sounds are positive. Extremities: No rash, lesions, or edema. No restriction of range of motion NEUROLOGICAL EXAMINATION: Awake. Not fully oriented to time, but knew place and person. PERRL. EOMI. CN: no focal findings. Muscle tone: within normal. Muscle strength: 4+ DTR: 1-2 Plantar reflex: Flexor response bilaterally Gait: Able to walk with a walker. Sensory exam: no abnormal findings. No other cerebellar signs elicited. F-T-N test fine. Objective Objective Vital Signs Date Time Temp Pulse Resp B/P (MAP) Pulse Ox O2 Delivery O2 Flow Rate FiO2 06/09/19 12:37 Room Air 06/09/19 10:52 97.7 86 18 103/59 (74) 94 97.7 Intake and Output 06/09/19 07:00 Intake Total 1150 ml Output Total 575 ml Balance 575 ml IV Total 1150 ml Output Urine Total 575 ml # Voids 3 # Bowel Movements 2 Vitals Signs Vitals VS - Last 72 Hours, by Label Date Time Temp Pulse Resp B/P (MAP) Pulse Ox O2 Delivery O2 Flow Rate FiO2 06/09/19 12:37 Room Air 06/09/19 10:52 97.7 86 18 103/59 (74) 94 Room Air 97.7 06/09/19 08:08 95 Room Air 06/09/19 08:00 Room Air 06/09/19 07:00 97.4 91 20 130/84 (99) 100 Room Air 97.4 06/09/19 02:22 99.6 94 22 132/84 (100) 94 Room Air 99.6 06/08/19 23:00 98.2 89 18 155/87 (109) 97 Room Air 98.2 06/08/19 20:00 Room Air 06/08/19 19:13 95 Room Air 06/08/19 19:00 98.5 86 18 152/92 (112) 95 Room Air 98.5 06/08/19 15:38 98 Room Air 06/08/19 14:52 97.9 79 18 159/95 (116) 94 Room Air 97.9 06/08/19 11:44 97 Room Air 06/08/19 11:00 97.8 85 168/99 (122) 97 Room Air 97.8 06/08/19 07:30 Room Air 06/08/19 07:22 95 Room Air 06/08/19 07:00 97.9 91 19 148/89 (108) 93 Room Air 97.9 Laboratory Laboratory Laboratory Tests Test 06/09/19 03:19 Sodium Level 143 mmol/L (136-145) Potassium Level 4.3 mmol/L (3.5-5.1) Chloride Level 109 mmol/L (98-107) Carbon Dioxide Level 23 mmol/L (21-32) Anion Gap 11 (6-14) Blood Urea Nitrogen 10 mg/dL (8-26) Creatinine 1.3 mg/dL (0.7-1.3) Estimated GFR (Cockcroft-Gault) 53.1 Glucose Level 83 mg/dL (70-99) Calcium Level 8.4 mg/dL (8.5-10.1) Microbiology 06/06/19 Blood Culture - Preliminary, Resulted NO GROWTH AFTER 2 DAYS Comment Review of Relevant I have reviewed the following items julia (where applicable) has been applied. DUARTE PEGUERO MD Jun 09, 2019 13:39
--- NOTE | 2019-06-09 14:54 | NUR ---
RICKY following pt. RICKY phoned and faxed to [place], [facility]. Pt will transport via [facility] w/c [place] between [id number]. Pt was evaluated by [facility] today and they have reported they are able to meet with pt's needs and pt is able to return to [place] today. Discussed with pt's daughter and pt. RN notified.
[2019-06-09 15:00] VITALS: BP 160/92
== END 2019-06-09 18:00 | disposition home or self-care (01) | DRG 177 ==
LOC: ER 11:58 → 5 SOUTH 14:30
PROVIDERS: ADMIT Family Medicine; ATTEND Family Medicine
DX: J15.6 Pneumonia due to other Gram-negative bacteria (principal); G93.41 Metabolic encephalopathy; J96.01 Acute respiratory failure with hypoxia; J98.11 Atelectasis; I10 Essential (primary) hypertension; I48.91 Unspecified atrial fibrillation; Z96.659 Presence of unspecified artificial knee joint; G89.29 Other chronic pain; M19.90 Unspecified osteoarthritis, unspecified site; F03.90 Unspecified dementia, unspecified severity, without behavioral disturbance, psychotic disturbance, mood disturbance, and anxiety; G31.9 Degenerative disease of nervous system, unspecified; E66.9 Obesity, unspecified; Z68.29 Body mass index [BMI] 29.0-29.9, adult; F41.9 Anxiety disorder, unspecified; G47.00 Insomnia, unspecified; J40 Bronchitis, not specified as acute or chronic; Z79.82 Long term (current) use of aspirin; Z85.828 Personal history of other malignant neoplasm of skin; Z82.49 Family history of ischemic heart disease and other diseases of the circulatory system
CPT/HCPCS: 36415; 70450; 70551; 71045; 71250; 80048; 80053; 81001; 82140; 82607; 83605; 84145; 84443; 85025; 85651; 87040; 87086; 90471; 90686; 94640; 94760; 96361; 96365; 96375; J0696; J1650; J2543; J3490; J7030; J7040; J7620; 92526; 92610; 97116; 97530; 97535; 99285-25; G0378

== ENCOUNTER 2019-07-12 22:52 | Emergency (ER) | payer MEDICARE ==
[~2019-07-12] VITALS: Ht 165.1 cm; Wt 81.6 kg
[2019-07-12 23:30] VITALS: BP 139/85
--- NOTE | 2019-07-12 23:31 | RAD ---
INDICATION: Status post fall COMPARISON: June 06, 2019 TECHNIQUE: Axial CT images obtained through the head without intravenous contrast. One or more of the following individualized dose reduction techniques were utilized for this examination: 1. Automated exposure control; 2. Adjustment of the mA and/or kV according to patient size; 3. Use of iterative reconstruction technique. FINDINGS: No intracranial hemorrhage. No midline shift. Basal cisterns patents. Ventricles and sulci are globally prominent. No acute osseous abnormality. Orbits and paranasal sinuses unremarkable. Scattered foci of low attenuation within the white matter. IMPRESSION: 1. No acute intracranial hemorrhage. 2. Scattered regions of low attenuation within the white matter. Non-specific in nature but frequently secondary to chronic small vessel ischemic disease. 3. Prominence of ventricles and sulci which is frequently secondary to age related volume loss. 4. Prominence of the subdural space frontally is again seen. Could be from volume loss or chronic subdural hygroma. Electronically signed by: Thom Palacios MD (07/12/2019 11:28 PM) [facility]
--- NOTE | 2019-07-13 00:20 | PHYS DOC ---
Past Medical History Past Medical History: A-Fib, Anxiety, Cancer, Hypertension, Prostatitis Additional Past Medical Histor: chronic back pain, orthostatic hypotension, insomnia,skin CA, GOUT,INSOMNIA Past Surgical History: Knee Replacement, Other Additional Past Surgical Histo: shoulder, skin ca removal on L side forehead, back, carpal tunnel Alcohol Use: None Drug Use: None Adult General Chief Complaint Chief Complaint: MECHANICAL FALL HPI HPI Patient is a 79 year old m with head injury fell down from standing at the group home no fever or sickness recently. eating well, no issues just losthis balance, witnessed no vomiting or loc daughter asked him to be transported to be checked out Review of Systems Review of Systems Constitutional: Denies fever or chills [] Eyes: Denies change in visual acuity, redness, or eye pain [] Cardiovascular: No additional information not addressed in HPI [] GI: Denies abdominal pain, nausea, vomiting, bloody stools or diarrhea [] : Denies dysuria or hematuria [] Musculoskeletal: Denies back pain or joint pain [] Integument: Denies rash or skin lesions [] All other systems were reviewed and found to be within normal limits, except as documented in this note. Allergies Allergies Allergies Coded Allergies Type Severity Reaction Last Updated Verified No Known Drug Allergies 06/06/19 No Physical Exam Physical Exam Constitutional: Well developed, well nourished, no acute distress, non-toxic appearance. [] HENT: Normocephalic, abrasion noted to the forehaed, bilateral external ears normal, oropharynx moist, no oral exudates, nose normal. [] Eyes: PERRLA, EOMI, conjunctiva normal, no discharge. [] Neck: Normal range of motion, no tenderness, supple, no stridor. [] Cardiovascular:Heart rate regular rhythm, no murmur [] Lungs & Thorax: Bilateral breath sounds clear to auscultation [] no chest wall ttp noted Abdomen: Bowel sounds normal, soft, no tenderness, no masses, no pulsatile masses. [] Skin: abrasion forehead, nonsuturable Extremities: No tenderness, no cyanosis, no clubbing, ROM intact, no edema. [] Neurologic: Alert and responsive, normal motor function, normal sensory function, no focal deficits noted. [] Psychologic: Affect normal, judgement normal, mood normal. [] Current Patient Data Vital Signs Vital Signs Date Time Temp Pulse Resp B/P (MAP) Pulse Ox O2 Delivery O2 Flow Rate FiO2 07/12/19 23:30 68 98 07/12/19 22:52 98.2 20 146/93 (110) Room Air 98.2 EKG EKG [] Radiology/Procedures Radiology/Procedures [] Impressions: Cervical spine: Additionally axial CT images were obtained of the cervical spine with reformats processed. Cervical spine findings: Patient motion slightly limits exam. Calcific atherosclerosis. Degenerative changes the spine with disc protrusions and osteophyte formation as well as uncovertebral and facet hypertrophy with multilevel central canal and neural foraminal stenosis. Questionable cortical step-off at the anterior aspect of the superior sternum. Cervical spine impression: Degenerative changes without definite acute fracture or dislocation of the cervical spine. At the partially visualized upper sternum there is a questionable cortical step-off seen. Could be artifactual in nature or a chronic finding unless there is point tenderness to suggest nondisplaced fracture. Electronically signed by: Maria Guadalupe Beckett MD (07/12/2019 11:53 PM) [place] [id number] DICTATED AND SIGNED BY: MARIA GUADALUPE BECKETT MD DATE: 07/12/19 1587 CC: BEHZAD ROBERTS MD; JANINA TALAVERA APRN; JAMES COSTELLO MD ~ INDICATION: Status post fall COMPARISON: June 06, 2019 TECHNIQUE: Axial CT images obtained through the head without intravenous contrast. One or more of the following individualized dose reduction techniques were utilized for this examination: 1. Automated exposure control; 2. Adjustment of the mA and/or kV according to patient size; 3. Use of iterative reconstruction technique. FINDINGS: No intracranial hemorrhage. No midline shift. Basal cisterns patents. Ventricles and sulci are globally prominent. No acute osseous abnormality. Orbits and paranasal sinuses unremarkable. Scattered foci of low attenuation within the white matter. IMPRESSION: 1. No acute intracranial hemorrhage. 2. Scattered regions of low attenuation within the white matter. Non-specific in nature but frequently secondary to chronic small vessel ischemic disease. 3. Prominence of ventricles and sulci which is frequently secondary to age related volume loss. 4. Prominence of the subdural space frontally is again seen. Could be from volume loss or chronic subdural hygroma. Electronically signed by: Maria Guadalupe Beckett MD (07/12/2019 11:28 PM) [facility] DICTATED and SIGNED BY: MARIA GUADALUPE BECKETT MD DATE: 07/12/19 3865 Course & Med Decision Making Course & Med Decision Making Pertinent Labs and Imaging studies reviewed. (See chart for details) []saw the ct finding pt had no chest wall tenderness at all isolated head injury d/w daughter negative ct head reassurance Dragon Disclaimer Dragon Disclaimer This electronic medical record was generated, in whole or in part, using a voice recognition dictation system. Departure Departure Impression: Primary Impression: Head injury Disposition: 01 HOME, SELF-CARE Condition: STABLE Patient Instructions: Head Injury, Adult, Itse-sb-Wlpl JAMES COSTELLO MD Jul 13, 2019 00:20
== END 2019-07-13 | disposition home or self-care (01) ==
LOC: ER 22:52
DX: S00.81XA Abrasion of other part of head, initial encounter (principal); I48.91 Unspecified atrial fibrillation; I10 Essential (primary) hypertension; G89.29 Other chronic pain; W18.39XA Other fall on same level, initial encounter; Y93.89 Activity, other specified; Y92.128 Other place in nursing home as the place of occurrence of the external cause; Y99.8 Other external cause status
CPT/HCPCS: 70450; 72125; 99284-25

== ENCOUNTER 2019-12-05 19:42 | Emergency (ER) | payer MEDICARE ==
[~2019-12-05] VITALS: Ht 165.1 cm; Wt 77.2 kg
[~2019-12-05 19:42] MED LIST changes: +ASPI-612 PO; +DIGO125T3 PO; +FURO40TA4 PO; +MAGN400C PO; +MELA3TAB4 PO; -MELA3TAB56 PO; +METO25TA4 PO; +MIDO2.5T PO; +OXYB-36 PO; -OXYB5TAB2 PO
[2019-12-05 19:45] VITALS: BP 152/112
--- NOTE | 2019-12-05 20:01 | PHYS DOC ---
Past Medical History Past Medical History: A-Fib, Anxiety, Cancer, Hypertension, Prostatitis Additional Past Medical Histor: chronic back pain, orthostatic hypotension, insomnia,skin CA, GOUT,INSOMNIA Past Surgical History: Knee Replacement, Other Additional Past Surgical Histo: shoulder, skin ca removal on L side forehead, back, carpal tunnel Smoking Status: Unknown if ever smoked Alcohol Use: None Drug Use: None General Adult EDM: Chief Complaint: MECHANICAL FALL HPI: HPI: Patient is a 79 year old male who arrives via EMS with report of head injury after falling at assisted living facility. Patient had been putting on his pants when he fell backward, hitting his head. Patient denies having had any loss of consciousness. He does admit to a headache that he rates a 5 out of 10. He denies any nausea or vomiting. He also admits to some neck pain.[] Review of Systems: Review of Systems: Constitutional: Denies fever or chills. [] Respiratory: Denies cough or shortness of breath. [] Cardiovascular: Denies chest pain or edema. [] GI: Denies abdominal pain, nausea, vomiting, bloody stools or diarrhea. [] Musculoskeletal: Admits to neck pain. [] Integument: Positive scalp laceration. [] Neurologic: Complains of headache without focal weakness or sensory changes. [] A full 10 point review of systems has been reviewed and is otherwise negative. Heart Score: Risk Factors: Risk Factors: DM, Current or recent (<one month) smoker, HTN, HLP, family history of CAD, obesity. Risk Scores: Score 0 - 3: 2.5% MACE over next 6 weeks - Discharge Home Score 4 - 6: 20.3% MACE over next 6 weeks - Admit for Clinical Observation Score 7 - 10: 72.7% MACE over next 6 weeks - Early Invasive Strategies Allergies: Allergies: Allergies Coded Allergies Type Severity Reaction Last Updated Verified Vqysuwp-Tft-Fgg Reductase Inhibitor Allergy Intermediate 08/27/19 Yes Physical Exam: PE: Constitutional: Well developed, well nourished, no acute distress, non-toxic appearance. [] HENT: Normocephalic, with 4 cm linear laceration to the posterior parietal re gion of scalp. Laceration extends into subcutaneous tissue with no galeal involvement. Bilateral external ears normal, oropharynx moist, no oral exudates, nose normal. [] Eyes: PERRLA, EOMI, conjunctiva normal, no discharge. [] Neck: Normal range of motion, with mild suboccipital tenderness. [] Cardiovascular: Regular rate and rhythm[] Lungs & Thorax: Bilateral breath sounds clear to auscultation [] Abdomen: Bowel sounds normal, soft, no tenderness. [] Skin: Warm, dry, no erythema, no rash. [] Extremities: No tenderness, no cyanosis, no clubbing, ROM intact. [] Neurologic: Awake and alert, no focal deficits noted. [] EKG: EKG: [] Radiology/Procedures: Radiology/Procedures: [] Impression: PROCEDURE: CT HEAD AND CERVICAL SPINE WO Exam: CT head and cervical spine without contrast INDICATION: Fall TECHNIQUE: Sequential axial images through the head and cervical spine were obtained without the administration of IV contrast. Comparisons: None FINDINGS: Head: No focal parenchymal lesion or hemorrhage is identified. There is no midline shift or sulcal effacement. No acute vascular territory infarction is identified. Marks-white distinction is preserved. The ventricular system is within normal limits without compression hydrocephalus. The basal cisterns are well maintained. The visualized portions of the paranasal sinuses and mastoid air cells are well-pneumatized. No acute fractures. Cervical spine: Vertebral body heights and alignment are well-maintained. Fracture through the cervical spine is not identified. Visualized paraspinal soft tissues are unremarkable. Multilevel spondylotic change in cervical spine with diffuse degenerative disc disease and bilateral facet arthropathy. IMPRESSION: 1. No acute intracranial abnormality. 2. Negative CT C-spine for acute traumatic injury. Exposure: One or more of the following in the visualized dose reduction techniques were utilized for this examination: 1. Automated exposure control 2. Adjustment of the MA and/or KV according to patient size Use of iterative of reconstructive technique Electronically signed by: Yared Sterling MD (12/05/2019 8:21 PM) [id number] DICTATED and SIGNED BY: YARED STERLING MD DATE: 12/05/192020 Course & Med Decision Making: Course & Med Decision Making Pertinent Labs and Imaging studies reviewed. (See chart for details) Laceration Repair by me: Anesthesia: 1% lidocaine locally Location: Scalp Tendon/Joint/Nerves: No injury Foreign body: None detected after copious irrigation and exploration Technique: A total of 6 aamir were placed with good reapproximation of wound margins Complexity: No subcutaneous sutures/mucosal repair/edge excision Post Closure Length: 4 cm Patient's bleeding was easily controlled in the department and there is no indication of anemia. No evidence of compartment syndrome, neurologic injury, vascular injury, open joint, tendon laceration, or foreign body. Patient is appropriate for outpatient follow up. 48 hour wound check. Scar minimization instructions given. Dragon Disclaimer: Dragon Disclaimer: This electronic medical record was generated, in whole or in part, using a voice recognition dictation system. Departure Departure Impression: Primary Impression: Head injury Qualified Codes: S09.90XA - Unspecified injury of head, initial encounter Additional Impression: Scalp laceration Qualified Codes: S01.01XA - Laceration without foreign body of scalp, initial encounter Disposition: HOME, SELF-CARE Condition: STABLE Referrals: BEHZAD ROBERTS MD (PCP) Patient Instructions: Head Injury, Adult, Laceration Care, Adult Additional Instructions: Return for staple removal in 7-10 days. LUIS FERNANDO DESHPANDE Jr. DO Dec 05, 2019 20:01
--- NOTE | 2019-12-05 20:25 | RAD ---
Exam: CT head and cervical spine without contrast INDICATION: Fall TECHNIQUE: Sequential axial images through the head and cervical spine were obtained without the administration of IV contrast. Comparisons: None FINDINGS: Head: No focal parenchymal lesion or hemorrhage is identified. There is no midline shift or sulcal effacement. No acute vascular territory infarction is identified. Marks-white distinction is preserved. The ventricular system is within normal limits without compression hydrocephalus. The basal cisterns are well maintained. The visualized portions of the paranasal sinuses and mastoid air cells are well-pneumatized. No acute fractures. Cervical spine: Vertebral body heights and alignment are well-maintained. Fracture through the cervical spine is not identified. Visualized paraspinal soft tissues are unremarkable. Multilevel spondylotic change in cervical spine with diffuse degenerative disc disease and bilateral facet arthropathy. IMPRESSION: 1. No acute intracranial abnormality. 2. Negative CT C-spine for acute traumatic injury. Exposure: One or more of the following in the visualized dose reduction techniques were utilized for this examination: 1. Automated exposure control 2. Adjustment of the MA and/or KV according to patient size Use of iterative of reconstructive technique Electronically signed by: Yared Quezada MD (12/05/2019 8:21 PM) [id number]
== END 2019-12-05 21:50 | disposition home or self-care (01) ==
LOC: ER 19:42
DX: S01.01XA Laceration without foreign body of scalp, initial encounter (principal); I48.91 Unspecified atrial fibrillation; I10 Essential (primary) hypertension; M10.9 Gout, unspecified; G89.29 Other chronic pain; Z91.041 Radiographic dye allergy status; W18.09XA Striking against other object with subsequent fall, initial encounter; Y93.89 Activity, other specified; Y92.098 Other place in other non-institutional residence as the place of occurrence of the external cause; Y99.8 Other external cause status
CPT/HCPCS: 12002; 70450; 72125; 99285-25

== ENCOUNTER 2020-02-21 14:47 | Inpatient (IN) | payer MEDICARE ==
[~2020-02-21] VITALS: Ht 172.7 cm; Wt 74.3 kg
[~2020-02-21 14:47] MED LIST changes: -ASPI-612 PO; +ASPI-886 PO
--- NOTE | 2020-02-21 15:55 | RAD ---
Examination: CT HEAD AND CERVICAL SPINE WO History: Reason: fall / Spl. Instructions: / History: Comparison/Correlation: 12/05/2019 CT head and cervical spine without contrast Findings: Axial images of the head and cervical spine were obtained without contrast. Sagittal and coronal reformatted images were provided. Atrophy is present. No intracranial hemorrhage, midline shift, or mass effect. Right forehead subgaleal hematoma is present. Minimal gas within it noted. No depressed skull fracture. Atlantoaxial joint degenerative mottling is notable. Minimal anterolisthesis of C4 in relation to C2 and C5 is evident. Severe disc space narrowing throughout the cervical spine is evident. Spurring is noted at multiple levels of the cervical spine. Mild bony encroachment on the neural foramina at C4-5 noted. Soft tissues of neck are unremarkable. Impression: Right forehead subgaleal hematoma. Gas within it may be due to laceration injury. No intracranial hemorrhage. Advanced degenerative changes of the cervical spine. No acute process involving the cervical spine. PQRS Compliance Statement: One or more of the following individualized dose reduction techniques were utilized for this examination: 1. Automated exposure control 2. Adjustment of the mA and/or kV according to patient size 3. Use of iterative reconstruction technique Electronically signed by: Demian Shaw MD (02/21/2020 3:53 PM) [id number]
--- NOTE | 2020-02-21 16:03 | RAD ---
Examination: CHEST AP ONLY History: Reason: stroke / Spl. Instructions: / History: Comparison: 08/27/2019. Findings: AP portable upright frontal view of the chest was obtained. The cardiomediastinal silhouette is normal. Lungs are clear. There is no pneumothorax. Elevation left hemidiaphragm is present. Adjacent mild left basilar atelectasis noted. Left costophrenic angle blunting unchanged. No acute bone abnormality. Right humeral head anchor sutures noted. IMPRESSION: Mild left base atelectasis. Electronically signed by: Demian Shaw MD (02/21/2020 4:00 PM) [id number]
[2020-02-21 16:07] LABS: BASO # 0.1 x10^3/uL (0.0-0.2); BASO % 1 % (0-3); EOS # 0.2 x10^3/uL (0.0-0.7); EOS % 3 % (0-3); HEMATOCRIT 44.1 % (39.0-53.0); HEMOGLOBIN 15.1 g/dL (13.0-17.5); LYMPH % 11 % (24-48); MEAN CORPUSCULAR HEMOGLOBIN 34 pg (25-35); MEAN CORPUSCULAR HGB CONC 34 g/dL (31-37); MEAN CORPUSCULAR VOLUME 99 fL (79-100); MONO % 11 % (0-9); NEUT # 6.8 x10^3/uL (1.8-7.7); NEUT % 75 % (31-73); PLATELET COUNT 189 x10^3/uL (140-400); RED BLOOD COUNT 4.47 x10^6/uL (4.30-5.70); RED CELL DISTRIBUTION WIDTH 13.8 % (11.5-14.5)
--- NOTE | 2020-02-21 16:14 | PHYS DOC ---
Past Medical History Past Medical History: A-Fib, Anxiety, Cancer, Hypertension, Prostatitis Additional Past Medical Histor: chronic back pain, orthostatic hypotension, insomnia,skin CA, GOUT,INSOMNIA Past Surgical History: Knee Replacement, Other Additional Past Surgical Histo: shoulder, skin ca removal on L side forehead, back, carpal tunnel Smoking Status: Never Smoker Alcohol Use: None Drug Use: None General Adult EDM: Chief Complaint: NEURO SYMPTOMS/DEFICITS HPI: HPI: Patient is a 80 year old male who presents with fall and head pain. Patient has some dementia at baseline with word finding difficulty. This is a second fall this week. He lives in assisted living and was able to press this button immediately after the fall. Fall happened around 2:00. His first he knows he was normal until that time. He has some mild head pain. Denies any other complaints. Review of Systems: Review of Systems: General: Denies fever, chills, sweats, fatigue Eyes: Denies drainage, blurred vision, eye redness HENT: Denies rhinorrhea, sore throat, earache Respiratory: Denies cough, shortness of breath, wheezing Cardiac: Denies edema, palpitations, chest pain GI: Denies abdominal pain, Nausea, vomiting MSK: Denies back pain, neck pain Skin: Denies rash, jaundice Neuro: Denies headache, dizziness Psychiatric: Denies SI/HI Heart Score: Risk Factors: Risk Factors: DM, Current or recent (<one month) smoker, HTN, HLP, family history of CAD, obesity. Risk Scores: Score 0 - 3: 2.5% MACE over next 6 weeks - Discharge Home Score 4 - 6: 20.3% MACE over next 6 weeks - Admit for Clinical Observation Score 7 - 10: 72.7% MACE over next 6 weeks - Early Invasive Strategies Allergies: Allergies: Allergies Coded Allergies Type Severity Reaction Last Updated Verified Iywqnmm-Ouu-Rxi Reductase Inhibitor Allergy Intermediate 08/27/19 Yes Physical Exam: PE: General: Awake, alert, NAD. Well Nourished, well hydrated. Cooperative HEENT: abrasion to R forehead, EOMI, PERRL, airway patent, moist oral mucosa Neck: Supple, trachea midline Respiratory: CTA bilaterally, normal effort, no wheezing/crackles CV: RRR, no murmur, cap refill <2 GI: Soft, nondistended, nontender, no masses MSK: No obvious deformities Skin: Warm, dry, intact Neuro: A&Ox3, speech slurred, 5/5 strength in LUE/BLE distally and proximally, 4/5strength in RUE, R sided facial droop, cerebellar testing normal, word finding difficulties Psych: Normal affect, normal mood, not suicidal or homicidal Current Patient Data: Labs: Laboratory Tests Test 02/21/20 15:24 Glucose (Fingerstick) 93 mg/dL (70-99) Vital Signs: Vital Signs Date Time Temp Pulse Resp B/P (MAP) Pulse Ox O2 Delivery O2 Flow Rate FiO2 02/21/20 14:47 97.7 87 9 161/91 (114) 95 Room Air 97.7 EKG: EKG: [] Radiology/Procedures: Radiology/Procedures: [] Course & Med Decision Making: Course & Med Decision Making Pertinent Labs and Imaging studies reviewed. (See chart for details) Patient is a 80 year-old male who presents to the Emergency Room for fall. Neurologic deficits that are concerning for an acute stroke. Stroke protocol was set off upon arrival to the Emergency Room and patient was taken for a CT head. At time of arrival, patient is protecting their airway and does not need intubation at this time. CT head shows []. At this time, patient is a candidate for tPA, however I had a long discussion about the risks and benefits of TPA with the patient and his daughter who is his is D POA. At this time they do not want TPA given.. Further work up was ordered to help risk stratify patient and to evaluate for other causes of neurologic deficits including CBC, BMP, troponin, EKG, CXR, magnesium. At this time, CT angio head/neck [] indicated and patient [] be a potential candidate for IR clot retreival. [CT angio shows]. Patient will be [] for []. Plan of care was discussed with patient/family and all questions were answered. Sarthak Disclaimer: Sarthak Disclaimer: This electronic medical record was generated, in whole or in part, using a voice recognition dictation system. Departure Departure Impression: Primary Impression: Head injury Additional Impressions: Dementia Stroke Facial droop Disposition: ADMITTED INPATIENT Condition: STABLE Referrals: BEHZAD ROBERTS MD (PCP) Justicifation of Admission Dx: Justifications for Admission: Justification of Admission Dx: Yes Stroke - Ischemic: Stroke-Ischemic LUCAS MARTIN MD Feb 21, 2020 16:14
[2020-02-21 16:17] LABS: PROTHROMBIN TIME PATIENT 14.4 SEC (11.7-14.0)
[2020-02-21 16:32] LABS: CALCIUM 8.7 mg/dL (8.5-10.1); CREATININE 1.5 mg/dL (0.7-1.3); GFR 44.9; POTASSIUM 4.7 mmol/L (3.5-5.1)
[2020-02-21] MEDS ORDERED: IOHEXOL 300 MG/ML 100ML VIAL. IV ONE (17:00)
[2020-02-21] MEDS ORDERED: CONTRAST GIVEN. MC PRN (17:00)
--- NOTE | 2020-02-21 17:27 | RAD ---
Exam: CTA head and neck INDICATION: Right-sided facial droop, right arm weakness TECHNIQUE: Sequential axial images through the head and neck obtained following the administration of 60 mL of Omni 300 IV contrast. Sagittal and coronal reformatted images were reconstructed from the axial data and reviewed. 3-D reformatted images were reconstructed from the axial data and reviewed. Comparisons: CT head without contrast same day FINDINGS: CTA NECK: Visualized portions of the thoracic aorta are unremarkable. Right common carotid artery is patent without evidence of stenosis, occlusion or aneurysm. Mild calcified plaque at the cavernous segment of the right internal carotid artery without significant stenosis. Left common carotid artery is patent without evidence of stenosis, occlusion or aneurysm. Mild calcified plaque at the cavernous segment of the left internal carotid artery without significant stenosis. Right vertebral artery is patent to basilar confluence without evidence of stenosis, occlusion or aneurysm. Left vertebral artery is patent to the basilar confluence without evidence of stenosis, occlusion or aneurysm. Visualized paraspinal soft tissues are unremarkable. CTA HEAD: Mild calcified plaque at the cavernous segment of the right internal carotid artery without significant stenosis. Right MCA is patent. Right HERMELINDA is patent. Mild calcified plaque at the cavernous segment of the left internal carotid artery without significant stenosis. Left MCA is patent. Left HERMELINDA is patent. Basilar artery is patent without evidence of stenosis, occlusion or aneurysm. 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 IMPRESSION: 1. No large vessel occlusion. 2. Mild calcified plaque at the cavernous segments of the internal carotid arteries bilaterally without significant stenosis. 3. Mild plaque at the origin of the internal carotid arteries bilaterally without significant stenosis. Exposure: One or more of the following in the visualized dose reduction techniques were utilized for this examination: 1. Automated exposure control 2. Adjustment of the MA and/or KV according to patient size 3. Use of iterative of reconstructive technique Electronically signed by: Yared Quezada MD (02/21/2020 5:24 PM) [id number]
[2020-02-21] MEDS ORDERED: guaiFENesin ORAL 200 MG/10 ML LIQUID. PO PRN (18:15)
[2020-02-21] MEDS ORDERED: LORazepam 0.5 MG TABLET PO PRN (18:15)
--- NOTE | 2020-02-21 18:16 | PDOC1 ---
History and Physical Date of Admission Date of Admission DATE: 02/21/20 TIME: 18:09 Source Source: Chart review, Patient History of Present Illness History of Present Illness Mr. Canela is a 80 year old male who presents with fall and head pain. he has fallen twice this week, and now has a large raspberry on his scalp. Patient has some dementia at baseline but is talkative and interactive, his daughter reports that he is talking about his baseline code stroke was called for facial droop and right sided weakness that has resolved, This is a second fall this week. He lives in assisted living and was able to press this button immediately after the fall. He has some mild head pain. Denies any other complaints, he is hoping to go back home soon and was making excuses for why he didnt need to be in the hospital and trying to tell me that Dr. Vasquez would not be available tomorrow anyway Past Medical History Cardiovascular: AFIB, Other CENTRAL NERVOUS SYSTEM: Dementia GI: GERD Musculoskeletal: low back pain, Osteoarthritis Renal/: UTI, Benign prostatic enlarg. Past Surgical History Past Surgical History: Total knee replacement, Other Family History Family History: Other Social History ALCOHOL: none Drugs: None Current Problem List Problem List Problems Medical Problems: (1) Facial droop Status: Acute (2) Head injury Status: Acute (3) Stroke Status: Acute Current Medications Current Medications Current Medications Iohexol (Omnipaque 300 Mg/ml) 60 ml 1X ONCE IV Last administered on 02/21/20at 17:00; Start 02/21/20 at 17:00; Stop 02/21/20 at 17:01; Status DC Info (CONTRAST GIVEN -- Rx MONITORING) 1 each PRN DAILY PRN MC SEE COMMENTS; Start 02/21/20 at 17:00; Stop 02/23/20 at 16:59 Active Scripts Active Guaifenesin 100 Mg/5 Ml Liquid 200 Mg PO PRN Q4HRS PRN 7 Days Ativan (Lorazepam) 0.5 Mg Tablet 0.5 Mg PO PRN Q4HRS PRN Reported Aspirin Ec (Aspirin) 81 Mg Tablet. 1 Tab PO DAILY Metoprolol Tartrate 25 Mg Tablet 1 Tab PO BID Midodrine Hcl 2.5 Mg Tablet 2.5 Mg PO TID Magnesium (Magnesium Oxide) 400 Mg Capsule 400 Mg PO DAILY Furosemide 40 Mg Tablet 1 Tab PO DAILY PRN Take one by mouth if coughing, short of breath and ankle swelling. Digoxin 125 Mcg Tablet 125 Mcg PO QODAY Triamcinolone Acetonide 0.025% Cream (Triamcinolone Acetonide) 15 Gm Cream..g. 1 Felix TP BID Fluorouracil 10 Ml Solution 10 Ml TP BID Flonase Allergy Relief (Fluticasone Propionate) 9.9 Ml Roann.susp 2 Sprays NS DAILY PRN Melatonin 3 Mg Tablet 1 Tab PO QHS Vitamin B-12 (Cyanocobalamin (Vitamin B-12)) 1,000 Mcg Tablet 1 Tab PO DAILY 30 Days Oxybutynin Chloride Er (Oxybutynin Chloride) 5 Mg Tab.er.24 1 Tab PO BID Allergies Allergies: Coded Allergies: Zgxavvp-Glz-Nqi Reductase Inhibitor (Verified Allergy, Intermediate, 08/27/19) ROS General: YES: Fatigue, Malaise; No: Chills, Night Sweats, Other PSYCHOLOGICAL ROS: No: Anxiety, Behavioral Disorder, Concentration difficultie, Decreased libido, Depression, Disorientation, Hallucinations, Hostility, Irritablity, Memory difficulties, Mood Swings, Obsessive thoughts, Other Eyes: No Blurry vision, No Decreased vision, No Double vision, No Dry eyes, No Excessive tearing, No Eye Pain, No Itchy Eyes, No Loss of vision, No Photophobia, No Scotomata, No Uses contacts, No Uses glasses, No Other HEENT: No: Heacaches, Visual Changes, Hearing change, Nasal congestion, Nasal discharge, Oral lesions, Sinus pain, Sore Throat, Epistaxis, Sneezing, Snoring, Tinnitus, Vertigo, Vocal changes, Other Respiratory: No: Cough, Hemoptysis, Orthopnea, Pleuritic Pain, Shortness of breath, SOB with excertion, Sputum Changes, Stridor, Tachypnea, Wheezing, Other Cardiovascular: No Chest Pain, No Palpitations, No Orthopnea, No Paroxysmal Noc. Dyspnea, No Edema, No Lt Headedness, No Other Gastrointestinal: No Nausea, No Vomiting, No Abdominal Pain, No Diarrhea, No Constipation, No Melena, No Hematochezia, No Other Genitourinary: No Dysuria, No Frequency, No Incontinence, No Hematuria, No Retention, No Discharge, No Urgency, No Pain, No Flank Pain, No Other, No , No , No , No , No , No , No Musculoskeletal: Yes Joint Stiffness; No Gait Disturbance, No Joint Pain, No Joint Swelling, No Muscle Pain, No Muscular Weakness, No Pain In:, No Swelling In:, No Other Neurological: Yes Gait Disturbance, Yes Impaired Coord/balance, Yes Memory Loss ; No Behavorial Changes, No Bowel/Bladder ControlChng, No Confusion, No Dizziness, No Headaches, No Numbness/Tingling, No Seizures, No Speech Problems, No Tremors, No Visual Changes, No Weakness, No Other Skin: No Dry Skin, No Eczema, No Hair Changes, No Lumps, No Mole Changes, No Mottling, No Nail Changes, No Pruritus, No Rash, No Skin Lesion Changes, No Other, No Acne Physical Exam General: Alert, Cooperative, No acute distress, Other (not well oriented, but very talkative, conversant, poor recall) HEENT: EOMI, Mucous membr. moist/pink Lungs: Normal air movement Heart: S1S2, no murmurs Breasts: Lt breast nml w/o mass Abdomen: Soft Extremities: No cyanosis, Other (no edema, ) Skin: No breakdown, Other (dry skin, poor turgor) Neuro: Normal speech, Sensation intact Psych/Mental Status: Mood NL Vitals Vitals Vital Signs Date Time Temp Pulse Resp B/P (MAP) Pulse Ox O2 Delivery O2 Flow Rate FiO2 02/21/20 16:58 81 16 140/111 (121) 99 Room Air 02/21/20 14:47 97.7 97.7 Labs Labs Laboratory Tests Test 02/21/20 15:24 02/21/20 15:53 Glucose (Fingerstick) 93 mg/dL (70-99) White Blood Count 9.0 x10^3/uL (4.0-11.0) Red Blood Count 4.47 x10^6/uL (4.30-5.70) Hemoglobin 15.1 g/dL (13.0-17.5) Hematocrit 44.1 % (39.0-53.0) Mean Corpuscular Volume 99 fL (79-100) Mean Corpuscular Hemoglobin 34 pg (25-35) Mean Corpuscular Hemoglobin Concent 34 g/dL (31-37) Red Cell Distribution Width 13.8 % (11.5-14.5) Platelet Count 189 x10^3/uL (140-400) Neutrophils (%) (Auto) 75 % (31-73) Lymphocytes (%) (Auto) 11 % (24-48) Monocytes (%) (Auto) 11 % (0-9) Eosinophils (%) (Auto) 3 % (0-3) Basophils (%) (Auto) 1 % (0-3) Neutrophils # (Auto) 6.8 x10^3/uL (1.8-7.7) Lymphocytes # (Auto) 1.0 x10^3/uL (1.0-4.8) Monocytes # (Auto) 1.0 x10^3/uL (0.0-1.1) Eosinophils # (Auto) 0.2 x10^3/uL (0.0-0.7) Basophils # (Auto) 0.1 x10^3/uL (0.0-0.2) Prothrombin Time 14.4 SEC (11.7-14.0) Prothromb Time International Ratio 1.2 (0.8-1.1) Sodium Level 138 mmol/L (136-145) Potassium Level 4.7 mmol/L (3.5-5.1) Chloride Level 104 mmol/L (98-107) Carbon Dioxide Level 26 mmol/L (21-32) Anion Gap 8 (6-14) Blood Urea Nitrogen 27 mg/dL (8-26) Creatinine 1.5 mg/dL (0.7-1.3) Estimated GFR (Cockcroft-Gault) 44.9 Glucose Level 111 mg/dL (70-99) Calcium Level 8.7 mg/dL (8.5-10.1) Troponin I Quantitative < 0.017 ng/mL (0.000-0.055) XG-Wca-S-Type Natriuretic Peptide 3478 pg/mL (0-449) Laboratory Tests Test 02/21/20 15:24 02/21/20 15:53 Glucose (Fingerstick) 93 mg/dL (70-99) White Blood Count 9.0 x10^3/uL (4.0-11.0) Red Blood Count 4.47 x10^6/uL (4.30-5.70) Hemoglobin 15.1 g/dL (13.0-17.5) Hematocrit 44.1 % (39.0-53.0) Mean Corpuscular Volume 99 fL (79-100) Mean Corpuscular Hemoglobin 34 pg (25-35) Mean Corpuscular Hemoglobin Concent 34 g/dL (31-37) Red Cell Distribution Width 13.8 % (11.5-14.5) Platelet Count 189 x10^3/uL (140-400) Neutrophils (%) (Auto) 75 % (31-73) Lymphocytes (%) (Auto) 11 % (24-48) Monocytes (%) (Auto) 11 % (0-9) Eosinophils (%) (Auto) 3 % (0-3) Basophils (%) (Auto) 1 % (0-3) Neutrophils # (Auto) 6.8 x10^3/uL (1.8-7.7) Lymphocytes # (Auto) 1.0 x10^3/uL (1.0-4.8) Monocytes # (Auto) 1.0 x10^3/uL (0.0-1.1) Eosinophils # (Auto) 0.2 x10^3/uL (0.0-0.7) Basophils # (Auto) 0.1 x10^3/uL (0.0-0.2) Prothrombin Time 14.4 SEC (11.7-14.0) Prothromb Time International Ratio 1.2 (0.8-1.1) Sodium Level 138 mmol/L (136-145) Potassium Level 4.7 mmol/L (3.5-5.1) Chloride Level 104 mmol/L (98-107) Carbon Dioxide Level 26 mmol/L (21-32) Anion Gap 8 (6-14) Blood Urea Nitrogen 27 mg/dL (8-26) Creatinine 1.5 mg/dL (0.7-1.3) Estimated GFR (Cockcroft-Gault) 44.9 Glucose Level 111 mg/dL (70-99) Calcium Level 8.7 mg/dL (8.5-10.1) Troponin I Quantitative < 0.017 ng/mL (0.000-0.055) VO-Lyn-U-Type Natriuretic Peptide 3478 pg/mL (0-449) VTE Prophylaxis Ordered VTE Prophylaxis Devices: Yes VTE Pharmacological Prophylaxi: Yes Assessment/Plan Assessment/Plan falls, right arm tremor, new shuffling gait, right arm weakness and facial droop, eval TIA consult Neuro, dementia, talkative and interactive, CHF, chronic diastolic orthostatic hypotension, on midodrine dehydrated, hold lasix CKD 3, weakness and debility, PT and OT Justicifation of Admission Dx: Justifications for Admission: Justification of Admission Dx: Yes Stroke - Ischemic: Stroke-Ischemic ABRAN RIOS MD Feb 21, 2020 18:16
[2020-02-21 20:05] VITALS: BP 129/77
--- NOTE | 2020-02-21 20:08 | NUR ---
Pt. arrived from ED via bed w/ CVA. He is A/O x4 and will make needs known. Daughter @ BS. Stroke scale was 6 in ED and now is a 1.
[2020-02-21] MEDS ORDERED: FLUOROURACIL TP SCH (21:00)
[2020-02-21] MEDS: METOPROLOL TART IMMED RELEASE 25 MG TABLET. PO SCH (21:03)
[2020-02-21 23:02] VITALS: BP 128/68
[2020-02-22] VITALS (9 sets, daily range): BP systolic 66–136; BP diastolic 41–81
[2020-02-22] MEDS: MIDODRINE 2.5 MG TABLET PO SCH ×3 (08:00→17:00)
[2020-02-22] MEDS: IV NORMAL SALINE 1000ML BAG 1,000 ML IV SCH ×2 (08:15→17:00)
[2020-02-22] MEDS: METOPROLOL TART IMMED RELEASE 25 MG TABLET. PO SCH ×2 (09:00→21:11)
[2020-02-22] MEDS: CYANOCOBALAMIN (VITAMIN B-12) 1,000 MCG TABLET. PO SCH (09:00)
[2020-02-22] MEDS: DIGOXIN 125 MCG TABLET. PO SCH (09:00)
[2020-02-22] MEDS: ASPIRIN ENTERIC COATED 81 MG TABLET.DR. PO SCH (09:00)
--- NOTE | 2020-02-22 10:15 | PDOC2 ---
NEUROLOGY CONSULT Date of Admission Date of Admission DATE: 02/22/20 TIME: 10:04 Reason for Consult Reason for Consult: Right-sided weakness, falls Referring Physician Referring Physician: Dr. Tejead Source Source: Caregiver (Daughter), Chart review, Patient History of Present Illness History of Present Illness The patient is an 80-year-old right-handed male who lives in assisted living and has had several falls recently. He did fall and have a scalp laceration and contusion. There was some swelling on the right side the face apparently interpreted as a facial droop. Patient has had transient ischemic attacks in the past daughter says that she does not have details. He has had long-standing orthostatic hypotension. He has occasional tremors. He has been declining mentally and has had several falls. The plan was to take him to a neurologist, but COVID intervened. There is no history of stroke or seizure. Past Medical History Cardiovascular: AFIB, Other ( orthostatic hypotension) GI: GERD Psych: Depression Musculoskeletal: low back pain, Osteoarthritis Renal/: Benign prostatic enlarg. Dermatology: Squamous cell Past Surgical History Past Surgical History: Other ( bilateral carpal tunnel syndrome, left knee, removal of skin cancers) Family History Family History: Other ( Alzheimer's) Social History Social History twice, lives in assisted living, no tobacco or alcohol Current Medications Current Medications Current Medications Iohexol (Omnipaque 300 Mg/ml) 60 ml 1X ONCE IV Last administered on 02/21/20at 17:00; Start 02/21/20 at 17:00; Stop 02/21/20 at 17:01; Status DC Info (CONTRAST GIVEN -- Rx MONITORING) 1 each PRN DAILY PRN MC SEE COMMENTS; Start 02/21/20 at 17:00; Stop 02/23/20 at 16:59 Aspirin (Ecotrin) 81 mg DAILY PO ; Start 02/22/20 at 09:00 Cyanocobalamin (Vitamin B-12) 1,000 mcg DAILY PO ; Start 02/22/20 at 09:00 Digoxin (Lanoxin) 125 mcg QODAY PO ; Start 02/22/20 at 09:00 Guaifenesin (Robitussin) 200 mg PRN Q4HRS PRN PO COUGH; Start 02/21/20 at 18:15 Lorazepam (Ativan) 0.5 mg PRN Q4HRS PRN PO ANXIETY / AGITATION; Start 02/21/20 at 18:15 Metoprolol Tartrate (Lopressor) 25 mg BID PO Last administered on 02/21/20at 21:03; Start 02/21/20 at 21:00 Midodrine (Proamatine) 2.5 mg TIDWMEALS PO ; Start 02/22/20 at 08:00 Non-Formulary Medication (Fluorouracil ) 10 ml BID TP ; Start 02/21/20 at 21:00; Stop 02/21/20 at 20:19; Status DC Sodium Chloride 1,000 ml @ 100 mls/hr Q10H IV Last administered on 02/22/20at 08:15; Start 02/22/20 at 08:15 Active Scripts Active Guaifenesin 100 Mg/5 Ml Liquid 200 Mg PO PRN Q4HRS PRN 7 Days Ativan (Lorazepam) 0.5 Mg Tablet 0.5 Mg PO PRN Q4HRS PRN Reported Aspirin Ec (Aspirin) 81 Mg Tablet.dr 1 Tab PO DAILY Metoprolol Tartrate 25 Mg Tablet 1 Tab PO BID Midodrine Hcl 2.5 Mg Tablet 2.5 Mg PO TID Magnesium (Magnesium Oxide) 400 Mg Capsule 400 Mg PO DAILY Furosemide 40 Mg Tablet 1 Tab PO DAILY PRN Take one by mouth if coughing, short of breath and ankle swelling. Digoxin 125 Mcg Tablet 125 Mcg PO QODAY Triamcinolone Acetonide 0.025% Cream (Triamcinolone Acetonide) 15 Gm Cream..g. 1 Felix TP BID Fluorouracil 10 Ml Solution 10 Ml TP BID Flonase Allergy Relief (Fluticasone Propionate) 9.9 Ml [place].susp 2 Sprays NS DAILY PRN Melatonin 3 Mg Tablet 1 Tab PO QHS Vitamin B-12 (Cyanocobalamin (Vitamin B-12)) 1,000 Mcg Tablet 1 Tab PO DAILY 30 Days Oxybutynin Chloride Er (Oxybutynin Chloride) 5 Mg Tab.er.24 1 Tab PO BID Allergies Allergies: Coded Allergies: Usgyvpu-Tzz-Tyk Reductase Inhibitor (Verified Allergy, Intermediate, 08/27/19) ROS Review of System Negative for fever, chills, weight loss, shortness of breath, chest pain, indigestion, hematochezia, melena, and dysuria. Full 14-point review of systems is negative. Physical Exam Physical Examination General: Well-developed, well-nourished white male, in no acute distress HEENT: Normocephalic. Right-sided scalp laceration and contusion. Temporal arteriespulsatile and nontender. Neck: Supple without bruit, no meningismus Musculoskeletal: Stability:see neurologic. Gait exam:see neurologic. Tone:see neurologic.Strength:see neurologic. Neurological: Mental Status:orientation, memory, attention span/concentration, language, fund of knowledge: does not know date or location, very poor historian, does name and repeat. Cranial Nerves:Pupils equal and reactive to light, extraocular movements areintact, visual ruiz are full to confrontation. Facial sensation is normal. There is no facial asymmetry. Vestibulo-ocular reflex is intact. Palate elevates and tongue protrudes in midline. All other cranial related problems are negative except as mentioned before.Reflexes:1+ and symmetric with flexor plantar responses. Motor:3-4/5 strength with Gegenhalten tone. Coordination:Finger-nose finger done slowly, no ataxia, can't do heel-to- muñoz. Poor rapid alternating movements and fine finger movements are intact. Gait: not tested. Sensory: stocking loss Vitals VITALS Vital Signs Date Time Temp Pulse Resp B/P (MAP) Pulse Ox O2 Delivery O2 Flow Rate FiO2 02/22/20 07:00 97.8 73 17 131/81 (98) 94 Room Air 97.8 Labs Labs Laboratory Tests Test 02/21/20 15:24 02/21/20 15:53 Glucose (Fingerstick) 93 mg/dL (70-99) White Blood Count 9.0 x10^3/uL (4.0-11.0) Red Blood Count 4.47 x10^6/uL (4.30-5.70) Hemoglobin 15.1 g/dL (13.0-17.5) Hematocrit 44.1 % (39.0-53.0) Mean Corpuscular Volume 99 fL (79-100) Mean Corpuscular Hemoglobin 34 pg (25-35) Mean Corpuscular Hemoglobin Concent 34 g/dL (31-37) Red Cell Distribution Width 13.8 % (11.5-14.5) Platelet Count 189 x10^3/uL (140-400) Neutrophils (%) (Auto) 75 % (31-73) Lymphocytes (%) (Auto) 11 % (24-48) Monocytes (%) (Auto) 11 % (0-9) Eosinophils (%) (Auto) 3 % (0-3) Basophils (%) (Auto) 1 % (0-3) Neutrophils # (Auto) 6.8 x10^3/uL (1.8-7.7) Lymphocytes # (Auto) 1.0 x10^3/uL (1.0-4.8) Monocytes # (Auto) 1.0 x10^3/uL (0.0-1.1) Eosinophils # (Auto) 0.2 x10^3/uL (0.0-0.7) Basophils # (Auto) 0.1 x10^3/uL (0.0-0.2) Prothrombin Time 14.4 SEC (11.7-14.0) Prothromb Time International Ratio 1.2 (0.8-1.1) Sodium Level 138 mmol/L (136-145) Potassium Level 4.7 mmol/L (3.5-5.1) Chloride Level 104 mmol/L (98-107) Carbon Dioxide Level 26 mmol/L (21-32) Anion Gap 8 (6-14) Blood Urea Nitrogen 27 mg/dL (8-26) Creatinine 1.5 mg/dL (0.7-1.3) Estimated GFR (Cockcroft-Gault) 44.9 Glucose Level 111 mg/dL (70-99) Calcium Level 8.7 mg/dL (8.5-10.1) Troponin I Quantitative < 0.017 ng/mL (0.000-0.055) HX-Pmz-G-Type Natriuretic Peptide 3478 pg/mL (0-449) Laboratory Tests Test 02/21/20 15:24 02/21/20 15:53 Glucose (Fingerstick) 93 mg/dL (70-99) White Blood Count 9.0 x10^3/uL (4.0-11.0) Red Blood Count 4.47 x10^6/uL (4.30-5.70) Hemoglobin 15.1 g/dL (13.0-17.5) Hematocrit 44.1 % (39.0-53.0) Mean Corpuscular Volume 99 fL (79-100) Mean Corpuscular Hemoglobin 34 pg (25-35) Mean Corpuscular Hemoglobin Concent 34 g/dL (31-37) Red Cell Distribution Width 13.8 % (11.5-14.5) Platelet Count 189 x10^3/uL (140-400) Neutrophils (%) (Auto) 75 % (31-73) Lymphocytes (%) (Auto) 11 % (24-48) Monocytes (%) (Auto) 11 % (0-9) Eosinophils (%) (Auto) 3 % (0-3) Basophils (%) (Auto) 1 % (0-3) Neutrophils # (Auto) 6.8 x10^3/uL (1.8-7.7) Lymphocytes # (Auto) 1.0 x10^3/uL (1.0-4.8) Monocytes # (Auto) 1.0 x10^3/uL (0.0-1.1) Eosinophils # (Auto) 0.2 x10^3/uL (0.0-0.7) Basophils # (Auto) 0.1 x10^3/uL (0.0-0.2) Prothrombin Time 14.4 SEC (11.7-14.0) Prothromb Time International Ratio 1.2 (0.8-1.1) Sodium Level 138 mmol/L (136-145) Potassium Level 4.7 mmol/L (3.5-5.1) Chloride Level 104 mmol/L (98-107) Carbon Dioxide Level 26 mmol/L (21-32) Anion Gap 8 (6-14) Blood Urea Nitrogen 27 mg/dL (8-26) Creatinine 1.5 mg/dL (0.7-1.3) Estimated GFR (Cockcroft-Gault) 44.9 Glucose Level 111 mg/dL (70-99) Calcium Level 8.7 mg/dL (8.5-10.1) Troponin I Quantitative < 0.017 ng/mL (0.000-0.055) SU-Rce-N-Type Natriuretic Peptide 3478 pg/mL (0-449) Images Images CTA head and neck INDICATION: Right-sided facial droop, right arm weakness TECHNIQUE: Sequential axial images through the head and neck obtained following the administration of 60 mL of Omni 300 IV contrast. Sagittal and coronal reformatted images were reconstructed from the axial data and reviewed. 3-D reformatted images were reconstructed from the axial data and reviewed. Comparisons: CT head without contrast same day FINDINGS: CTA NECK: Visualized portions of the thoracic aorta are unremarkable. Right common carotid artery is patent without evidence of stenosis, occlusion or aneurysm. Mild calcified plaque at the cavernous segment of the right internal carotid artery without significant stenosis. Left common carotid artery is patent without evidence of stenosis, occlusion or aneurysm. Mild calcified plaque at the cavernous segment of the left internal carotid artery without significant stenosis. Right vertebral artery is patent to basilar confluence without evidence of stenosis, occlusion or aneurysm. Left vertebral artery is patent to the basilar confluence without evidence of stenosis, occlusion or aneurysm. Visualized paraspinal soft tissues are unremarkable. CTA HEAD: Mild calcified plaque at the cavernous segment of the right internal carotid artery without significant stenosis. Right MCA is patent. Right HERMELINDA is patent. Mild calcified plaque at the cavernous segment of the left internal carotid artery without significant stenosis. Left MCA is patent. Left HERMELINDA is patent. Basilar artery is patent without evidence of stenosis, occlusion or aneurysm. 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 IMPRESSION: 1. No large vessel occlusion. 2. Mild calcified plaque at the cavernous segments of the internal carotid arteries bilaterally without significant stenosis. 3. Mild plaque at the origin of the internal carotid arteries bilaterally without significant stenosis. CT HEAD AND CERVICAL SPINE WO History: Reason: fall / Spl. Instructions: / History: Comparison/Correlation: 12/05/2019 CT head and cervical spine without contrast Findings: Axial images of the head and cervical spine were obtained without contrast. Sagittal and coronal reformatted images were provided. Atrophy is present. No intracranial hemorrhage, midline shift, or mass effect. Right forehead subgaleal hematoma is present. Minimal gas within it noted. No depressed skull fracture. Atlantoaxial joint degenerative mottling is notable. Minimal anterolisthesis of C4 in relation to C2 and C5 is evident. Severe disc space narrowing throughout the cervical spine is evident. Spurring is noted at multiple levels of the cervical spine. Mild bony encroachment on the neural foramina at C4-5 noted. Soft tissues of neck are unremarkable. Impression: Right forehead subgaleal hematoma. Gas within it may be due to laceration injury. No intracranial hemorrhage. Advanced degenerative changes of the cervical spine. No acute process involving the cervical spine. Assessment/Plan Assessment/Plan Impression: Picture of dementia, peripheral neuropathy, orthostatic hypotension, gait disorder, multiple false. 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 No evidence that he had a stroke or transient ischemic attack Cervical degenerative spondylosis, not a candidate for what would have to be extensive cervical spine surgery Recommendations: Lab work for easily reversible causes of neuropathy and dementia Otherwise, we are in a palliative situation I do not think that trial of anti-Parkinson's medication would help, I would consider donepezil and memantene but these can increase his dizziness Speech is going to check his swallowing out and then he can resume eating. Currently is NPO. Physical and occupational therapy I fully discussed with the patient and his daughter. Thank you for letting me help with the patient's care. LENI AVENDAÑO MD Feb 22, 2020 10:15
--- NOTE | 2020-02-22 12:47 | PN ---
DATE: 02/22/2020 CHIEF COMPLAINT: Fall with facial trauma. HISTORY OF PRESENT ILLNESS: The patient is a pleasant elderly male who got admitted last night after he fell and had a head trauma. He has got a lot of bruising on his face. Currently, the patient is being examined on the medical floor. PHYSICAL EXAMINATION: VITAL SIGNS: Stable. GENERAL: He is working with physical therapy. His daughter is present. HEART: Distant S1, S2. LUNGS: Clear. ABDOMEN: Soft. EXTREMITIES: No edema. HEENT: He has got a lot of bruising on his face, please see the pictures. ASSESSMENT AND PLAN: Fall with head trauma, tremors, weakness, facial droop, possible transient ischemic attack, dementia, congestive heart failure, orthostasis and chronic kidney disease. PLAN: Consult Neurology. PT, OT. Home meds. DVT prophylaxis. Full code. Wound care. JOSIE SUAREZ DO DR: ABBEY/tommy JOB#: [id number] / [id number]
--- NOTE | 2020-02-22 15:37 | NUR ---
SW following. Spoke with RN and reviewed chart. SW coordinated care with pt's dtr. Pt resides in [facility] at [facility] in [place], , (fax). Pt has been to [facility] in the past but the dtr does not want pt to go for SNU. Discharge plan is for [facility]. PT/OT to evaluate. Speech has seen this patient and recommend LTC at discharge and dtr is aware. Pt's dtr requesting [facility] at discharge. SW completed Patient Choice of Vendor form. Requested COVID testing. SW to continue following.
[2020-02-23] MEDS: IV NORMAL SALINE 1000ML BAG 1,000 ML IV SCH ×2 (01:50→15:16)
[2020-02-23 03:00] VITALS: BP 120/80
--- NOTE | 2020-02-23 07:05 | EKG ---
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
[2020-02-23 07:40] VITALS: BP 132/84
[2020-02-23] MEDS: MIDODRINE 2.5 MG TABLET PO SCH ×3 (09:28→17:56)
[2020-02-23] MEDS: CYANOCOBALAMIN (VITAMIN B-12) 1,000 MCG TABLET. PO SCH (09:28)
[2020-02-23] MEDS: METOPROLOL TART IMMED RELEASE 25 MG TABLET. PO SCH ×2 (09:28→22:36)
[2020-02-23] MEDS: ASPIRIN ENTERIC COATED 81 MG TABLET.DR. PO SCH (09:28)
--- NOTE | 2020-02-23 10:26 | PDOC ---
PROGRESS NOTES Assessment Problems Medical Problems: (1) Facial droop Status: Acute (2) Head injury Status: Acute (3) Stroke Status: Acute Picture of dementia, peripheral neuropathy, orthostatic hypotension, gait disorder, multiple false. 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 Lab work so far negative No evidence that he had a stroke or transient ischemic attack Cervical degenerative spondylosis, not a candidate for what would have to be e xtensive cervical spine surgery Plan Trial of anti-Parkinson's medication unlikely to help, Parkinson's medications are usually best for tremor, which he does not have any, I would consider donepezil and memantene but these can increase his dizziness Diet Physical and occupational therapy He needs group home unit, I don't think he can survive at assisted living, daughter is resistant because she says they could not prevent his falls before. Subjective No complaints Objective Vital Signs Date Time Temp Pulse Resp B/P (MAP) Pulse Ox O2 Delivery O2 Flow Rate FiO2 02/23/20 09:28 80 132/84 02/23/20 08:00 Room Air 02/23/20 07:40 97.6 18 96 97.6 Intake and Output 02/23/20 07:00 Intake Total 1650 ml Balance 1650 ml Intake Oral 800 ml IV Total 850 ml # Voids 3 # Bowel Movements 1 PHYSICAL EXAM Alert. Oriented only to person. PERRL. EOMI. CN: no focal findings. Muscle tone: Gegenhalten Muscle strength: 3-4/5 DTR: 1+ Plantar reflex: flexor Gait: not examined in bed. Sensory exam: stocking loss. No cerebellar signs elicited. Review of Relevant I have reviewed the following items julia (where applicable) has been applied. Labs Laboratory Tests Test 02/21/20 15:24 02/21/20 15:53 02/23/20 06:30 Glucose (Fingerstick) 93 mg/dL (70-99) White Blood Count 9.0 x10^3/uL (4.0-11.0) Red Blood Count 4.47 x10^6/uL (4.30-5.70) Hemoglobin 15.1 g/dL (13.0-17.5) Hematocrit 44.1 % (39.0-53.0) Mean Corpuscular Volume 99 fL (79-100) Mean Corpuscular Hemoglobin 34 pg (25-35) Mean Corpuscular Hemoglobin Concent 34 g/dL (31-37) Red Cell Distribution Width 13.8 % (11.5-14.5) Platelet Count 189 x10^3/uL (140-400) Neutrophils (%) (Auto) 75 % (31-73) Lymphocytes (%) (Auto) 11 % (24-48) Monocytes (%) (Auto) 11 % (0-9) Eosinophils (%) (Auto) 3 % (0-3) Basophils (%) (Auto) 1 % (0-3) Neutrophils # (Auto) 6.8 x10^3/uL (1.8-7.7) Lymphocytes # (Auto) 1.0 x10^3/uL (1.0-4.8) Monocytes # (Auto) 1.0 x10^3/uL (0.0-1.1) Eosinophils # (Auto) 0.2 x10^3/uL (0.0-0.7) Basophils # (Auto) 0.1 x10^3/uL (0.0-0.2) Prothrombin Time 14.4 SEC (11.7-14.0) Prothromb Time International Ratio 1.2 (0.8-1.1) Sodium Level 138 mmol/L (136-145) Potassium Level 4.7 mmol/L (3.5-5.1) Chloride Level 104 mmol/L (98-107) Carbon Dioxide Level 26 mmol/L (21-32) Anion Gap 8 (6-14) Blood Urea Nitrogen 27 mg/dL (8-26) Creatinine 1.5 mg/dL (0.7-1.3) Estimated GFR (Cockcroft-Gault) 44.9 Glucose Level 111 mg/dL (70-99) Calcium Level 8.7 mg/dL (8.5-10.1) Troponin I Quantitative < 0.017 ng/mL (0.000-0.055) MP-Mkt-Q-Type Natriuretic Peptide 3478 pg/mL (0-449) C-Reactive Protein, Quantitative 10.8 mg/L (0-3.3) Vitamin B12 Level 1064 pg/mL (247-911) Thyroid Stimulating Hormone (TSH) 4.205 uIU/mL (0.358-3.74) Laboratory Tests Test 02/23/20 06:30 C-Reactive Protein, Quantitative 10.8 mg/L (0-3.3) Vitamin B12 Level 1064 pg/mL (247-911) Thyroid Stimulating Hormone (TSH) 4.205 uIU/mL (0.358-3.74) Medications Current Medications Iohexol (Omnipaque 300 Mg/ml) 60 ml 1X ONCE IV Last administered on 02/21/20at 17:00; Start 02/21/20 at 17:00; Stop 02/21/20 at 17:01; Status DC Info (CONTRAST GIVEN -- Rx MONITORING) 1 each PRN DAILY PRN MC SEE COMMENTS; Start 02/21/20 at 17:00; Stop 02/23/20 at 16:59 Aspirin (Ecotrin) 81 mg DAILY PO Last administered on 02/23/20at 09:28; Start 02/22/20 at 09:00 Cyanocobalamin (Vitamin B-12) 1,000 mcg DAILY PO Last administered on 02/23/20at 09:28; Start 02/22/20 at 09:00 Digoxin (Lanoxin) 125 mcg QODAY PO ; Start 02/22/20 at 09:00 Guaifenesin (Robitussin) 200 mg PRN Q4HRS PRN PO COUGH; Start 02/21/20 at 18:15 Lorazepam (Ativan) 0.5 mg PRN Q4HRS PRN PO ANXIETY / AGITATION; Start 02/21/20 at 18:15 Metoprolol Tartrate (Lopressor) 25 mg BID PO Last administered on 02/23/20at 09:28; Start 02/21/20 at 21:00 Midodrine (Proamatine) 2.5 mg TIDWMEALS PO Last administered on 02/23/20at 09:28; Start 02/22/20 at 08:00 Non-Formulary Medication (Fluorouracil ) 10 ml BID TP ; Start 02/21/20 at 21:00; Stop 02/21/20 at 20:19; Status DC Sodium Chloride 1,000 ml @ 100 mls/hr Q10H IV Last administered on 02/23/20at 01:50; Start 02/22/20 at 08:15 Active Scripts Active Guaifenesin 100 Mg/5 Ml Liquid 200 Mg PO PRN Q4HRS PRN 7 Days Ativan (Lorazepam) 0.5 Mg Tablet 0.5 Mg PO PRN Q4HRS PRN Reported Aspirin Ec (Aspirin) 81 Mg Tablet.dr 1 Tab PO DAILY Metoprolol Tartrate 25 Mg Tablet 1 Tab PO BID Midodrine Hcl 2.5 Mg Tablet 2.5 Mg PO TID Magnesium (Magnesium Oxide) 400 Mg Capsule 400 Mg PO DAILY Furosemide 40 Mg Tablet 1 Tab PO DAILY PRN Take one by mouth if coughing, short of breath and ankle swelling. Digoxin 125 Mcg Tablet 125 Mcg PO QODAY Triamcinolone Acetonide 0.025% Cream (Triamcinolone Acetonide) 15 Gm Cream..g. 1 Felix TP BID Fluorouracil 10 Ml Solution 10 Ml TP BID Flonase Allergy Relief (Fluticasone Propionate) 9.9 Ml [place].susp 2 Sprays NS DAILY PRN Melatonin 3 Mg Tablet 1 Tab PO QHS Vitamin B-12 (Cyanocobalamin (Vitamin B-12)) 1,000 Mcg Tablet 1 Tab PO DAILY 30 Days Oxybutynin Chloride Er (Oxybutynin Chloride) 5 Mg Tab.er.24 1 Tab PO BID Vitals/I & O Vital Sign - Last 24 Hours 02/22/20 02/22/20 02/22/20 02/22/20 11:00 12:53 14:46 15:28 Temp 97.7 97.8 97.7 97.8 Pulse 76 76 74 Resp 17 17 B/P (MAP) 126/71 (89) 126/71 132/69 (90) 90/62 (71) Pulse Ox 94 95 O2 Delivery Room Air Room Air 02/22/20 02/22/20 02/22/20 02/22/20 15:29 15:30 17:00 19:00 Temp 98.2 98.2 Pulse 74 94 Resp 18 B/P (MAP) 107/64 (78) 66/41 (49) 66/41 116/75 (89) Pulse Ox 93 O2 Delivery Room Air 02/22/20 02/22/20 02/22/20 02/23/20 21:00 21:11 23:00 03:00 Temp 97.7 97.8 97.7 97.8 Pulse 94 95 80 Resp 18 20 B/P (MAP) 116/75 112/74 (87) 120/80 (93) Pulse Ox 95 94 O2 Delivery Room Air Room Air Room Air 02/23/20 02/23/20 02/23/20 02/23/20 07:40 08:00 09:28 09:28 Temp 97.6 97.6 Pulse 80 80 80 Resp 18 B/P (MAP) 132/84 (100) 132/84 132/84 Pulse Ox 96 O2 Delivery Room Air Room Air Intake and Output 02/22/20 02/22/20 02/23/20 15:00 23:00 07:00 Intake Total 300 ml 1150 ml 200 ml Balance 300 ml 1150 ml 200 ml Justicifation of Admission Dx: Justifications for Admission: Justification of Admission Dx: Yes Stroke - Ischemic: Stroke-Ischemic LENI AVENDAÑO MD Feb 23, 2020 10:26
[2020-02-23 11:18] VITALS: BP 98/52
--- NOTE | 2020-02-23 11:20 | SNU/HH DC ---
DISCHARGE WITH HOME HEALTH DISCHARGE INFORMATION: Final Diagnosis: Problems Medical Problems: (1) Facial droop Status: Acute (2) Head injury Status: Acute (3) Stroke Status: Acute Condition on Discharge: Stable CODE STATUS: Code Status: Full HOME HEALTH: Face to Face: I certify this patient is under my care and that I, or a nurse practitioner or physician's telecom assistant working with me, had a face to face encounter that meets the physician face to face encounter requirements with this patient on []. Medical Complications: CVA Snf For: Assess & Educate Safety RN For Eval/Treatment: Yes Physical Therapy For: Evalulation/Treatment Occupational Therapy For: Evaluation/Treatment Speech Language Pathology For: Evaluation/Treatment Home Health Aide For: Self-care Pt Meets Homebound Status: Poor coordination w/ amb. POST DISCHARGE ORDERS: Activity Instructions for Disc: Activity as tolerated Weight Bearing Status after Di: As tolerated DIET AFTER DISCHARGE: Cardiac CHECKS AFTER DISCHARGE: Checks after discharge: Check blood press - daily, Weigh Yourself Daily TREATMENT/EQUIPMENT ORDERS: Adaptive Equipment Issued: Front wheeled walker CERTIFICATION STATEMENT: Certification Statement: Certification Statement: Based on the above finding, I certify that this patient is confined to the home and needs intermittent nursing home care, physical therapy and/or speech therapy, or continues to need occupational therapy.~ This patient is under my care, and I have initiated the establishment of the plan of care.~ This patient will be followed by myself or a community physician who will periodically review the plan of care. Home Meds Active Scripts Guaifenesin (GUAIFENESIN) 100 Mg/5 Ml Liquid, 200 MG PO PRN Q4HRS PRN for COUGH for 7 Days, LIQUID Prov:SELAM SANDOVAL MD 06/08/19 Lorazepam (ATIVAN) 0.5 Mg Tablet, 0.5 MG PO PRN Q4HRS PRN for ANXIETY / AGITATION, #30 TAB Prov:SELAM SANDOVAL MD 06/08/19 Reported Medications Aspirin (ASPIRIN EC) 81 Mg Tablet.dr, 1 TAB PO DAILY for heart, #30 TAB 3 Refills 09/01/19 Metoprolol Tartrate (METOPROLOL TARTRATE) 25 Mg Tablet, 1 TAB PO BID for heart and bp, #180 TAB 1 Refill 09/01/19 Midodrine Hcl (MIDODRINE HCL) 2.5 Mg Tablet, 2.5 MG PO TID for orthostatic hypotention, TAB 09/01/19 Magnesium Oxide (MAGNESIUM) 400 Mg Capsule, 400 MG PO DAILY for heart, CAP 09/01/19 Furosemide (FUROSEMIDE) 40 Mg Tablet, 1 TAB PO DAILY PRN for PRN, #30 TAB 5 Refills Take one by mouth if coughing, short of breath and ankle swelling. 09/01/19 Digoxin (DIGOXIN) 125 Mcg Tablet, 125 MCG PO QODAY for AFIB/HEART FAILURE, TAB 09/01/19 Triamcinolone Acetonide (TRIAMCINOLONE ACETONIDE 0.025% CREAM) 15 Gm Cream..g., 1 TONIA TP BID for flare up?, #30 GM 06/06/19 Fluorouracil (FLUOROURACIL) 10 Ml Solution, 10 ML TP BID for scalp areas, MISC 06/06/19 Fluticasone Propionate (Flonase Allergy Relief) 9.9 Ml [place].susp, 2 SPRAYS NS DAILY PRN for allergies, BOTTLE 06/06/19 Melatonin (MELATONIN) 3 Mg Tablet, 1 TAB PO QHS for insomnia, #30 TAB 2 Refills 06/06/19 Cyanocobalamin (Vitamin B-12) (VITAMIN B-12) 1,000 Mcg Tablet, 1 TAB PO DAILY for supplement for 30 Days, #30 TAB 0 Refills 06/06/19 Oxybutynin Chloride (OXYBUTYNIN CHLORIDE ER) 5 Mg Tab.er.24, 1 TAB PO BID for prostate, #30 TAB 5 Refills 06/06/19 JOSIE SUAREZ III DO Feb 23, 2020 11:20
--- NOTE | 2020-02-23 11:30 | DS ---
DATE OF DISCHARGE: ADMISSION DIAGNOSIS: Possible stroke (he fell and had facial trauma). 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 Vasquez. PROCEDURES: None. CONSULTS: Dr. Vasquez. HOSPITAL COURSE: The patient is a pleasant elderly male who lives at assisted care facility at [facility] in [place], [facility] that is a 22 bed facility and he gets good care there. He has been having lot of falls. At this time, he fell and struck his face. He had some trauma on his right eye and forehead. We ruled him out for stroke. We did consult Dr. Mckeon and Dr. Mckeon will like to see him, go to [facility], but I spoke with the patient and his daughter this morning, they adamantly refused to go to [facility]. He wanted to go back to [facility] with home health with physical therapy and occupational therapy. Heart tones this morning are normal. Lungs are clear. Abdomen is soft. HEENT, he does have some bruising on his forehead and eye on the right. We will go ahead and discharge to his assisted care facility with home health, physical therapy and occupational therapy. DISPOSITION: Home with home health and PT, OT. ACTIVITY: As tolerated. DIET: Low sodium. MEDICATIONS: Please see the MRAD. TOTAL TIME: 32 minutes. LIZYL Pati SUAREZ DO DR: ABBEY/tommy JOB#: [id number] / [id number]
--- NOTE | 2020-02-23 12:14 | NUR ---
SW following. Spoke with RN and reviewed chart. Coordinated care with Dr. Villa. Pt ready for discharge. Pt to discharge back to [facility] with . SW printed clinicals and discharge paperwork/orders to be sent with pt. SW also phoned and faxed pt information to [facility], , (fax) and [facility] [phone], (fax). Spoke with dtr who will transport pt back to [facility]. Pt to discharge on oral medications and room air. Patient Choice of Vendor form was completed. No further SW needs at this time.
[2020-02-23 15:08] VITALS: BP 111/77
--- NOTE | 2020-02-23 19:00 | NUR ---
Patient did not discharge. Facility will not take until his Covid test comes back negative. Results are not in at this time.
[2020-02-23 19:55] VITALS: BP 148/93
[2020-02-23 23:47] VITALS: BP 126/78
[2020-02-24] MEDS: IV NORMAL SALINE 1000ML BAG 1,000 ML IV SCH ×2 (00:15→10:15)
[2020-02-24 03:26] VITALS: BP 128/83
[2020-02-24 07:40] VITALS: BP 119/71
[2020-02-24] MEDS: MIDODRINE 2.5 MG TABLET PO SCH (08:52)
[2020-02-24 08:53] VITALS: BP 119/71
[2020-02-24] MEDS: DIGOXIN 125 MCG TABLET. PO SCH (08:53)
[2020-02-24] MEDS: ASPIRIN ENTERIC COATED 81 MG TABLET.DR. PO SCH (08:53)
[2020-02-24] MEDS: METOPROLOL TART IMMED RELEASE 25 MG TABLET. PO SCH (08:53)
[2020-02-24] MEDS: CYANOCOBALAMIN (VITAMIN B-12) 1,000 MCG TABLET. PO SCH (08:53)
--- NOTE | 2020-02-24 10:39 | NUR ---
SW following. Reviewed chart and coordinated care with RN and Dr. Villa. Pt's discharge was held yesterday as [facility] would not take pt back without COVID results. COVID results came back and pt is negative and will discharge today, 02/24/2020 back to [facility] with HH via transport from [facility]. Dtr on the unit and ready to transport pt. COVID results faxed to [facility], , (fax). Spoke with Jocelyne from [facility] [phone], and pt is scheduled to be seen for evaluation and treatment on 02/25/2020. No further SW needs at this time.
--- NOTE | 2020-02-24 10:56 | NUR ---
Discharge Note: CHENG KINSEY [address] Discharge instructions and discharge home medications reviewed with Patient and a copy given. All questions have been answered and understanding verbalized. The following instructions and handouts were given: transfer of care Discontinued lines and drains: 20 gauge left hand, tip intact. patient tolerated well. Patient discharged to [facility] via daughter.
--- NOTE | 2020-02-24 11:22 | PDOC ---
PROGRESS NOTES Assessment Problems Medical Problems: (1) Facial droop Status: Acute (2) Head injury Status: Acute (3) Stroke Status: Acute Picture of dementia, peripheral neuropathy, orthostatic hypotension, gait disorder, multiple false. 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 Lab work so far negative No evidence that he had a stroke or transient ischemic attack Cervical degenerative spondylosis, not a candidate for what would have to be e xtensive cervical spine surgery Plan Trial of anti-Parkinson's medication unlikely to help, Parkinson's medications are usually best for tremor, which he does not have any, I would consider donepezil and memantene but these can increase his dizziness Physical and occupational therapy He needs senior living unit, I don't think he can survive at assisted living, daughter is resistant because she says they could not prevent his falls before.So he is going home with home health Subjective Wants to go home Objective Vital Signs Date Time Temp Pulse Resp B/P (MAP) Pulse Ox O2 Delivery O2 Flow Rate FiO2 02/24/20 08:53 87 119/71 02/24/20 08:00 Room Air 02/24/20 07:40 97.8 18 96 97.8 Intake and Output 02/24/20 07:00 Intake Total 620 ml Balance 620 ml Intake Oral 620 ml # Voids 5 PHYSICAL EXAM Alert. Oriented only to person. PERRL. EOMI. CN: no focal findings. Muscle tone: [place] Muscle strength: 3-4/5 DTR: 1+ Plantar reflex: flexor Gait: not examined in bed. Sensory exam: stocking loss. No cerebellar signs elicited. Review of Relevant I have reviewed the following items julia (where applicable) has been applied. Labs Laboratory Tests Test 02/22/20 16:45 02/23/20 06:30 Coronavirus (PCR) Not detected (Not Detected) C-Reactive Protein, Quantitative 10.8 mg/L (0-3.3) Vitamin B12 Level 1064 pg/mL (247-911) Thyroid Stimulating Hormone (TSH) 4.205 uIU/mL (0.358-3.74) Medications Current Medications Iohexol (Omnipaque 300 Mg/ml) 60 ml 1X ONCE IV Last administered on 02/21/20at 17:00; Start 02/21/20 at 17:00; Stop 02/21/20 at 17:01; Status DC Info (CONTRAST GIVEN -- Rx MONITORING) 1 each PRN DAILY PRN MC SEE COMMENTS; Start 02/21/20 at 17:00; Stop 02/23/20 at 16:59; Status DC Aspirin (Ecotrin) 81 mg DAILY PO Last administered on 02/24/20at 08:53; Start 02/22/20 at 09:00; Stop 02/24/20 at 11:01; Status DC Cyanocobalamin (Vitamin B-12) 1,000 mcg DAILY PO Last administered on 02/24/20at 08:53; Start 02/22/20 at 09:00; Stop 02/24/20 at 11:01; Status DC Digoxin (Lanoxin) 125 mcg QODAY PO Last administered on 02/24/20at 08:53; Start 02/22/20 at 09:00; Stop 02/24/20 at 11:01; Status DC Guaifenesin (Robitussin) 200 mg PRN Q4HRS PRN PO COUGH; Start 02/21/20 at 18:15; Stop 02/24/20 at 11:01; Status DC Lorazepam (Ativan) 0.5 mg PRN Q4HRS PRN PO ANXIETY / AGITATION; Start 02/21/20 at 18:15; Stop 02/24/20 at 11:01; Status DC Metoprolol Tartrate (Lopressor) 25 mg BID PO Last administered on 02/24/20at 08:53; Start 02/21/20 at 21:00; Stop 02/24/20 at 11:01; Status DC Midodrine (Proamatine) 2.5 mg TIDWMEALS PO Last administered on 02/24/20at 08:52; Start 02/22/20 at 08:00; Stop 02/24/20 at 11:01; Status DC Non-Formulary Medication (Fluorouracil ) 10 ml BID TP ; Start 02/21/20 at 21:00; Stop 02/21/20 at 20:19; Status DC Sodium Chloride 1,000 ml @ 100 mls/hr Q10H IV Last administered on 02/23/20at 15:16; Start 02/22/20 at 08:15; Stop 02/24/20 at 11:01; Status DC Active Scripts Active Guaifenesin 100 Mg/5 Ml Liquid 200 Mg PO PRN Q4HRS PRN 7 Days Ativan (Lorazepam) 0.5 Mg Tablet 0.5 Mg PO PRN Q4HRS PRN Reported Aspirin Ec (Aspirin) 81 Mg Tablet.dr 1 Tab PO DAILY Metoprolol Tartrate 25 Mg Tablet 1 Tab PO BID Midodrine Hcl 2.5 Mg Tablet 2.5 Mg PO TID Magnesium (Magnesium Oxide) 400 Mg Capsule 400 Mg PO DAILY Furosemide 40 Mg Tablet 1 Tab PO DAILY PRN Take one by mouth if coughing, short of breath and ankle swelling. Digoxin 125 Mcg Tablet 125 Mcg PO QODAY Triamcinolone Acetonide 0.025% Cream (Triamcinolone Acetonide) 15 Gm Cream..g. 1 [place] TP BID Fluorouracil 10 Ml Solution 10 Ml TP BID Flonase Allergy Relief (Fluticasone Propionate) 9.9 Ml [place].susp 2 Sprays NS DAILY PRN Melatonin 3 Mg Tablet 1 Tab PO QHS Vitamin B-12 (Cyanocobalamin (Vitamin B-12)) 1,000 Mcg Tablet 1 Tab PO DAILY 30 Days Oxybutynin Chloride Er (Oxybutynin Chloride) 5 Mg Tab.er.24 1 Tab PO BID Vitals/I & O Vital Sign - Last 24 Hours 02/23/20 02/23/20 02/23/20 02/23/20 12:24 15:08 17:56 19:55 Temp 97.6 97.5 97.6 97.5 Pulse 57 65 65 64 Resp 17 16 B/P (MAP) 98/52 111/77 (88) 111/77 148/93 (111) Pulse Ox 96 96 O2 Delivery Room Air Room Air 02/23/20 02/23/20 02/23/20 02/24/20 20:00 22:36 23:47 03:26 Temp 98.4 97.9 98.4 97.9 Pulse 64 72 74 Resp 16 16 B/P (MAP) 148/93 126/78 (94) 128/83 (98) Pulse Ox 96 95 O2 Delivery Room Air Room Air Room Air 02/24/20 02/24/20 02/24/20 02/24/20 07:40 08:00 08:52 08:53 Temp 97.8 97.8 Pulse 87 87 87 Resp 18 B/P (MAP) 119/71 (87) 119/71 119/71 Pulse Ox 96 O2 Delivery Room Air Room Air 02/24/20 08:53 Pulse 87 B/P (MAP) 119/71 Intake and Output 02/23/20 02/23/20 02/24/20 15:00 23:00 07:00 Intake Total 320 ml 200 ml 100 ml Balance 320 ml 200 ml 100 ml Justicifation of Admission Dx: Justifications for Admission: Justification of Admission Dx: Yes Stroke - Ischemic: Stroke-Ischemic LENI AVENDAÑO MD Feb 24, 2020 11:22
[2020-02-25 15:13] LABS: ANA INTERP Negative (.)
[2020-02-25 16:11] LABS: ALPHA 1 0.1 g/dL (0.0-0.4); ALPHA 2 0.7 g/dL (0.4-1.0); BETA 0.6 g/dL (0.7-1.3); GAMMA 0.9 g/dL (0.4-1.8); PROTEIN TOTAL 5.3 g/dL (6.0-8.5); SPEP AG RATIO 1.3 (0.7-1.7)
--- NOTE | 2020-02-26 14:07 | DS ---
DATE OF DISCHARGE: 02/24/2020 ADMISSION DIAGNOSIS: Possible stroke. DISCHARGE DIAGNOSES: 1. Resolving stroke symptoms (it appears he had orthostasis, fell, and struck his head). 2. History of dementia, neuropathy, orthostatic hypotension, and gait disorder. CONSULTATION: Neurology. PROCEDURES: None. HOSPITAL COURSE: The patient is a pleasant elderly male who fell and we were concerned that he could have a stroke. He was admitted. We did physical therapy and occupational therapy. His imaging did not confirm a stroke. Dr. Vasquez was consulted. Overall, he did well. Yesterday, I saw him and examined him. He was doing well. The family insists that he goes back to his facility. We discharged back to his previous assisted care. DISPOSITION: Assisted Care with Home Health. ACTIVITY: As tolerated. DIET: Low sodium. MEDICATIONS: Please see the MRAD. TOTAL TIME: 34 minutes. LIZYL Pati SUAREZ DO DR: ABBEY/tommy JOB#: [id number] / [id number]
== END 2020-02-24 10:54 | disposition home health service (06) | DRG 74 ==
LOC: ER 14:47 → 6 SOUTH 18:00
PROVIDERS: ADMIT Internal Medicine; ATTEND Internal Medicine
DX: G62.9 Polyneuropathy, unspecified (principal); I50.32 Chronic diastolic (congestive) heart failure; I13.0 Hypertensive heart and chronic kidney disease with heart failure and stage 1 through stage 4 chronic kidney disease, or unspecified chronic kidney disease; Z20.828 Contact with and (suspected) exposure to other viral communicable diseases; E86.0 Dehydration; F03.90 Unspecified dementia, unspecified severity, without behavioral disturbance, psychotic disturbance, mood disturbance, and anxiety; I48.91 Unspecified atrial fibrillation; N18.3 Chronic kidney disease, stage 3 (moderate); R29.6 Repeated falls; R29.810 Facial weakness; S01.01XA Laceration without foreign body of scalp, initial encounter; Z82.0 Family history of epilepsy and other diseases of the nervous system; Z85.828 Personal history of other malignant neoplasm of skin; Z86.73 Personal history of transient ischemic attack (TIA), and cerebral infarction without residual deficits; Z96.659 Presence of unspecified artificial knee joint; F32.9 Major depressive disorder, single episode, unspecified; F41.9 Anxiety disorder, unspecified; G47.00 Insomnia, unspecified; G89.29 Other chronic pain; K21.9 Gastro-esophageal reflux disease without esophagitis; M10.9 Gout, unspecified; W18.39XA Other fall on same level, initial encounter; Y93.89 Activity, other specified; Y92.89 Other specified places as the place of occurrence of the external cause; Y99.8 Other external cause status
CPT/HCPCS: 36415; 70450; 70496; 70498; 71045; 72125; 80048; 82607; 82962; 83880; 84165; 84443; 84484; 85025; 85610; 86038; 86140; 93005; J7030; Q9967; 92610-GN; 97116-GP; 97530-GO; 97530-GP; 97535-GO; 99285-25; G0378; U0003-CS

== ENCOUNTER 2020-12-28 04:27 | Emergency (ER) | payer MEDICARE ==
[~2020-12-28] VITALS: Ht 162.6 cm; Wt 68.8 kg
--- NOTE | 2020-12-28 04:32 | PHYS DOC ---
Past Medical History Past Medical History: A-Fib, Anxiety, Cancer, Hypertension, Prostatitis Additional Past Medical Histor: chronic back pain, orthostatic hypotension, insomnia,skin CA, GOUT,INSOMNIA Past Surgical History: Knee Replacement, Other Additional Past Surgical Histo: shoulder, skin ca removal on L side forehead, back, carpal tunnel Smoking Status: Never Smoker Alcohol Use: None Drug Use: None General Adult EDM: Chief Complaint: MECHANICAL FALL HPI: HPI: Patient is a 80-year-old male presenting via EMS for a fall. He has dementia and is thus a poor historian. Primary history obtained from EMS. Was reported that while at retirement, patient had an unwitnessed fall suffering a laceration to his left forehead and skin tears to his left upper extremity. It is unknown if he had any loss of consciousness. He has had no nausea or vomit since, he is not on any blood thinners. On arrival, patient is alert and oriented to person only which is at his baseline. Reports that his head hurts, no other complaints. Review of Systems: Review of Systems: Fourteen body systems of review of systems have been reviewed. See HPI for pertinent positives and negative responses, other pereira all other systems are negative, non-pertinent or non-contributory Heart Score: C/O Chest Pain: No HEART Score for Chest Pain: HEART Score for Chest Pain Response (Comments) Value History Slighlty/Non-Suspicious 0 ECG Normal 0 Age > 65 2 Risk Factors >3 Risk Factors or Hx CAD 2 Troponin < Normal Limit 0 Total 4 Risk Factors: Risk Factors: DM, Current or recent (<one month) smoker, HTN, HLP, family history of CAD, obesity. Risk Scores: Score 0 - 3: 2.5% MACE over next 6 weeks - Discharge Home Score 4 - 6: 20.3% MACE over next 6 weeks - Admit for Clinical Observation Score 7 - 10: 72.7% MACE over next 6 weeks - Early Invasive Strategies Allergies: Allergies: Allergies Coded Allergies Type Severity Reaction Last Updated Verified Fwdikuu-Qcq-Nyz Reductase Inhibitor Allergy Intermediate 08/27/19 Yes Physical Exam: PE: Constitutional: Pt is oriented to person only which is reportedly his baseline. Pt appears well- developed but does appear malnourished and frail in no acute distress HEENT: Head: Normocephalic with laceration present to left frontal lobe area TMs clear, no hemotympanum Conjunctivae and EOM are normal. Pupils are equal, round, and reactive to light. Oropharynx is clear and moist. No hematomas or lacerations or abrasions to face OP clear, no blood, no malocclusion, dentition intact Nares clear, no nasal septal hematoma Midface stable Neck: C-spine midline nontender, no step-offs Cardiovascular: Normal rate, regular rhythm and normal heart sounds. Pulmonary/Chest: Effort normal and breath sounds normal. No respiratory distress. No wheezes. CTA bilaterally Abdominal: Soft. Bowel sounds are normal. Pt exhibits no distension. There is no tenderness. Musculoskeletal: No bony tenderness to extremities, no deformities, full ROM extremities Chest wall stable Pelvis stable and non-tender No vertebral TTP and spine without stepoffs Neurological: Pt is alert and oriented to person only Moving all extremities willfully, able to wiggle all fingers and toes Alert and oriented x 3 Motor and sensory function intact Cranial nerves II through XII intact Skin: Skin is warm and dry. No lacerations. There is significant skin Tear present to left forearm area Psychiatric: Behavior is appropriate for situation Current Patient Data: Labs: Laboratory Tests Test 12/28/20 04:52 White Blood Count 8.8 x10^3/uL Red Blood Count 4.39 x10^6/uL Hemoglobin 14.8 g/dL Hematocrit 44.4 % Mean Corpuscular Volume 101 fL Mean Corpuscular Hemoglobin 34 pg Mean Corpuscular Hemoglobin Concent 33 g/dL Red Cell Distribution Width 13.7 % Platelet Count 193 x10^3/uL Neutrophils (%) (Auto) 66 % Lymphocytes (%) (Auto) 18 % Monocytes (%) (Auto) 11 % Eosinophils (%) (Auto) 4 % Basophils (%) (Auto) 1 % Neutrophils # (Auto) 5.8 x10^3/uL Lymphocytes # (Auto) 1.6 x10^3/uL Monocytes # (Auto) 1.0 x10^3/uL Eosinophils # (Auto) 0.4 x10^3/uL Basophils # (Auto) 0.1 x10^3/uL Prothrombin Time 13.5 SEC Prothromb Time International Ratio 1.1 Activated Partial Thromboplast Time 32 SEC Sodium Level 141 mmol/L Potassium Level 4.6 mmol/L Chloride Level 104 mmol/L Carbon Dioxide Level 30 mmol/L Anion Gap 7 Blood Urea Nitrogen 29 mg/dL Creatinine 1.2 mg/dL Estimated GFR (Cockcroft-Gault) 58.1 BUN/Creatinine Ratio 24 Glucose Level 85 mg/dL Calcium Level 8.8 mg/dL Total Bilirubin 0.5 mg/dL Aspartate Amino Transf (AST/SGOT) 25 U/L Alanine Aminotransferase (ALT/SGPT) 23 U/L Alkaline Phosphatase 74 U/L Troponin I Quantitative < 0.017 ng/mL Total Protein 6.8 g/dL Albumin 3.8 g/dL Albumin/Globulin Ratio 1.3 Vital Signs: Vital Signs Date Time Temp Pulse Resp B/P (MAP) Pulse Ox O2 Delivery O2 Flow Rate FiO2 12/28/20 04:46 97.6 87 20 170/103 (125) 94 Room Air 97.6 Vital Signs Date Time Temp Pulse Resp B/P (MAP) Pulse Ox O2 Delivery O2 Flow Rate FiO2 12/28/20 04:46 97.6 87 20 170/103 (125) 94 Room Air 97.6 EKG: EKG: EKG ordered and interpreted by myself at 0510 hrs. as atrial fibrillation with ventricular rate of 66 bpm, unremarkable intervals, left axis deviation, T wave inversions noted in lead I and aVL, ST wave depression noted in lead V3, V4 Radiology/Procedures: Radiology/Procedures: EXAM: 1. CT HEAD WITHOUT CONTRAST. 2. CT CERVICAL SPINE WITHOUT CONTRAST. HISTORY: Fall, head injury. TECHNIQUE: Computed tomography of the head and cervical spine was performed without intravenous contrast. One or more of the following individualized dose reduction techniques were utilized for this examination: 1. Automated exposure control. 2. Adjustment of the mA and/or kV according to patient size. 3. Use of iterative reconstruction technique. COMPARISON: None. FINDINGS: There is no intracranial hemorrhage. Hypoattenuation within the periventricular white matter indicates mild chronic microangiopathic change. Prominence of the lateral ventricles and hemispheric sulci indicates moderate atrophy. The visualized paranasal sinuses appear clear. There are changes of right cataract surgery. The temporal bones are unremarkable. The calvarium reveals no suspicious lesions. There is a moderate left frontotemporal scalp hematoma. There is 2 mm anterolisthesis at C5-6. There is mild osteoarthritis at C1/2. No fractures are identified. Degenerative disc disease is severe diffusely. There may be interbody fusion from C6-T1. There is no prevertebral soft tissue swelling. There are moderate posterior disc-osteophyte complexes from C6-T1 resulting in at least mild central canal stenosis. Facet and uncovertebral osteoarthritis result in diffuse moderate to severe neural foraminal stenosis at all levels bilaterally. IMPRESSION: 1. Moderate left scalp hematoma. No acute intracranial findings. 2. Moderate atrophy and chronic microangiopathic white matter change. 3. No cervical fracture or acute malalignment. 4. Severe diffuse cervical degenerative changes as detailed above. Electronically signed by: Gilles Nunez MD (12/28/2020 5:14 AM) [facility] ////////////////////////////// EXAM: 1. LEFT HUMERUS 2 VIEWS. 2. LEFT FOREARM 2 VIEWS. HISTORY: Fall. COMPARISON: None. FINDINGS: No fractures are identified throughout. There are changes of left rotator cuff repair. Effacement of the subacromial space indicates rotator cuff arthropathy. The joint spaces and alignment of the left elbow and wrist are grossly maintained. There is mild proximal radioulnar osteoarthritis and moderate first carpometacarpal osteoarthritis. IMPRESSION: 1. No fracture. 2. Rotator cuff arthropathy. Electronically signed by: Gilles Nunez MD (12/28/2020 5:26 AM) [facility] /////////////////////// EXAM: CHEST ONE VIEW. HISTORY: Fall. COMPARISON: 02/21/2020. FINDINGS: A frontal view of the chest is obtained. There is moderate elevation of the left hemidiaphragm. There is associated atelectasis in the left base. There is no pneumothorax or clear pleural effusion. The heart is not enlarged. There are changes of right rotator cuff repair. IMPRESSION: 1. Moderate elevation of the left hemidiaphragm. No confluent infiltrates. Electronically signed by: Gilles Nunez MD (12/28/2020 5:24 AM) [facility] Course & Med Decision Making: Course & Med Decision Making Vital signs stable. HPI and physical exam concerning for unwitnessed fall with unknown loss of consciousness in dementia patient without blood thinner use C-collar placed immediately on arrival. Primary and secondary surveys performed and grossly nonconcerning. Diagnostic ER work-up obtained and again nonconcerning for emergent or surgical issues Patient's POA, daughter, arrived and assisted with history. We reviewed left upper extremity skin tear and supportive care advised. We discussed left forehead laceration with associated hematoma and reviewed laceration at length. Joint decision not to fix as actual laceration was superficial in nature and there is likely more risk of repair versus benefit if sutures and/or aamir were used I reviewed patient's medication history, he is 80 years old and on numerous narcotic medication and on an extensive dose of benzodiazepine medication. I have voiced my concern with daughter that this is likely contributing to patient's recent falls in past few months I advised her to contact retirement physician to review need for these medications and the risk of concomitant use that would put a patient like this at extremely high risk for falls. She reports she will address this whenever s he sees the physician next Strict return precautions were discussed with good understanding by patient's daughter, all questions and concerns addressed prior to your departure Critical Care Time This patient required critical care. Due to the fact that the patient required a significant amount of one on one physician - patient contact time, ordering and review of studies, arranging urgent treatment with development of a management plan, evaluation of patients response to treatment with frequent reassessments, and discussions with other providers this patient required 45 minutes of critical care time. Critical care time was indicated due to the inherent instability and/or potential for instability in this patient. The critical care time that is allocated to this patient is above and beyond any time spent on any other billable procedures performed on this patient. Sarthak Disclaimer: Sarthak Disclaimer: This electronic medical record was generated, in whole or in part, using a voice recognition dictation system. Departure Departure Impression: Primary Impression: Fall Additional Impressions: Head injury Dementia Skin tear Disposition: HOME / SELF CARE / HOMELESS Condition: IMPROVED Referrals: BEHZAD ROBERTS MD (PCP) Patient Instructions: Hematoma, Wound Care, [id number] Additional Instructions: As discussed prior to your departure, you suffered a mechanical fall at home. Your physical exam and comprehensive ER work-up did not show any emergent or surgical findings. Your scalp hematoma and skin tears did not require fixation while in ER setting. Continued supportive care for these is advised. As discussed with your daughter, it is recommended you review your medications with home primary care physician, I am concerned due to increased frequency of falls and fact that you are on numerous high risk medications such as opioids and benzodiazepines concomitantly. You would benefit from thorough medication reconciliation given your high risk due to your age and fall risk to eliminate any unnecessary and/or potentially dangerous medications. Please continue supportive care practices advised at your retirement, if any concerning signs or symptoms present prior to outpatient follow-up please do not hesitate to come back for repeat evaluation. It was a pleasure to take care of you and I wish you the best going forward MARIUM LAWS DO December 28, 2020 04:32
[2020-12-28 05:10] LABS: BASO # 0.1 x10^3/uL (0.0-0.2); BASO % 1 % (0-3); EOS # 0.4 x10^3/uL (0.0-0.7); EOS % 4 % (0-3); HEMATOCRIT 44.4 % (39.0-53.0); HEMOGLOBIN 14.8 g/dL (13.0-17.5); LYMPH # 1.6 x10^3/uL (1.0-4.8); LYMPH % 18 % (24-48); MEAN CORPUSCULAR HEMOGLOBIN 34 pg (25-35); MEAN CORPUSCULAR HGB CONC 33 g/dL (31-37); MEAN CORPUSCULAR VOLUME 101 fL (79-100); MONO % 11 % (0-9); NEUT # 5.8 x10^3/uL (1.8-7.7); NEUT % 66 % (31-73); PLATELET COUNT 193 x10^3/uL (140-400); RED BLOOD COUNT 4.39 x10^6/uL (4.30-5.70); RED CELL DISTRIBUTION WIDTH 13.7 % (11.5-14.5); WHITE BLOOD COUNT 8.8 x10^3/uL (4.0-11.0)
--- NOTE | 2020-12-28 05:16 | RAD ---
EXAM: 1. CT HEAD WITHOUT CONTRAST. 2. CT CERVICAL SPINE WITHOUT CONTRAST. HISTORY: Fall, head injury. TECHNIQUE: Computed tomography of the head and cervical spine was performed without intravenous contr ast. One or more of the following individualized dose reduction techniques were utilized for this exa mination: 1. Automated exposure control. 2. Adjustment of the mA and/or kV according to patient size. 3. Use of iterative reconstruction technique. COMPARISON: None. FINDINGS: There is no intracranial hemorrhage. Hypoattenuation within the periventricular white cande er indicates mild chronic microangiopathic change. Prominence of the lateral ventricles and hemispher ic sulci indicates moderate atrophy. The visualized paranasal sinuses appear clear. There are changes of right cataract surgery. The tempo ral bones are unremarkable. The calvarium reveals no suspicious lesions. There is a moderate left fro ntotemporal scalp hematoma. There is 2 mm anterolisthesis at C5-6. There is mild osteoarthritis at C1/2. No fractures are identif ied. Degenerative disc disease is severe diffusely. There may be interbody fusion from C6-T1. There i s no prevertebral soft tissue swelling. There are moderate posterior disc-osteophyte complexes from C6-T1 resulting in at least mild central canal stenosis. Facet and uncovertebral osteoarthritis result in diffuse moderate to severe neural fo raminal stenosis at all levels bilaterally. IMPRESSION: 1. Moderate left scalp hematoma. No acute intracranial findings. 2. Moderate atrophy and chronic microangiopathic white matter change. 3. No cervical fracture or acute malalignment. 4. Severe diffuse cervical degenerative changes as detailed above. Electronically signed by: Gilles Nunez MD (12/28/2020 5:14 AM) [facility]
[2020-12-28 05:25] LABS: CALCIUM 8.8 mg/dL (8.5-10.1); CREATININE 1.2 mg/dL (0.7-1.3); GFR 58.1; POTASSIUM 4.6 mmol/L (3.5-5.1)
[2020-12-28 05:26] LABS: PROTHROMBIN TIME PATIENT 13.5 SEC (11.7-14.0)
--- NOTE | 2020-12-28 05:27 | RAD ---
EXAM: CHEST ONE VIEW. HISTORY: Fall. COMPARISON: 02/21/2020. FINDINGS: A frontal view of the chest is obtained. There is moderate elevation of the left hemidiaphragm. There is associated atelectasis in the left ba se. There is no pneumothorax or clear pleural effusion. The heart is not enlarged. There are changes of right rotator cuff repair. IMPRESSION: 1. Moderate elevation of the left hemidiaphragm. No confluent infiltrates. Electronically signed by: Gilles Nunez MD (12/28/2020 5:24 AM) [facility]
--- NOTE | 2020-12-28 05:28 | RAD ---
EXAM: 1. LEFT HUMERUS 2 VIEWS. 2. LEFT FOREARM 2 VIEWS. HISTORY: Fall. COMPARISON: None. FINDINGS: No fractures are identified throughout. There are changes of left rotator cuff repair. Effa cement of the subacromial space indicates rotator cuff arthropathy. The joint spaces and alignment of the left elbow and wrist are grossly maintained. There is mild proximal radioulnar osteoarthritis an d moderate first carpometacarpal osteoarthritis. IMPRESSION: 1. No fracture. 2. Rotator cuff arthropathy. Electronically signed by: Gilles Nunez MD (12/28/2020 5:26 AM) [facility]
[2020-12-28 05:31] LABS: ALBUMIN 3.8 g/dL (3.4-5.0); ALBUMIN/GLOBULIN RATIO 1.3 (1.0-1.7); TOTAL BILIRUBIN 0.5 mg/dL (0.2-1.0); TOTAL PROTEIN 6.8 g/dL (6.4-8.2)
[2020-12-28 06:30] VITALS: BP 118/73
--- NOTE | 2020-12-28 08:02 | EKG ---
[facility] [address] [place] [address] Test Date: 2020-12-28 Test Time: 05:06:48 Pat Name: CHENG KINSEY Department: Room: Gender: Deputy Controller: LESVIA ER : 1940 Requested By: MARIUM LAWS Order Number: [id number] Reading MD: Measurements Intervals [place] Rate: 66 P: MS: QRS: -20 QRSD: 100 T: 176 QT: 382 QTc: 402 Interpretive Statements IRREGULAR RHYTHM, NO P-WAVE FOUND LEFTWARD AXIS R-S TRANSITION ZONE IN V LEADS DISPLACED TO THE RIGHT CONSIDER LEFT VENTRICULAR HYPERTROPHY QRS(T) CONTOUR ABNORMALITY CONSIDER ANTEROSEPTAL MYOCARDIAL DAMAGE ST & T ABNORMALITY, CONSIDER ANTEROLATERAL ISCHEMIA OR LEFT VENTRICULAR STRAIN INFEROLATERAL ISCHEMIA OR LEFT VENTRICULAR STRAIN ABNORMAL ECG RI6.02 No previous ECG available for comparison
== END 2020-12-28 06:56 | disposition home or self-care (01) ==
LOC: ER 04:27
DX: S01.81XA Laceration without foreign body of other part of head, initial encounter (principal); S41.112A Laceration without foreign body of left upper arm, initial encounter; R51.9 Headache, unspecified; R07.89 Other chest pain; F03.90 Unspecified dementia, unspecified severity, without behavioral disturbance, psychotic disturbance, mood disturbance, and anxiety; I48.91 Unspecified atrial fibrillation; I10 Essential (primary) hypertension; G89.29 Other chronic pain; W18.39XA Other fall on same level, initial encounter; Y93.89 Activity, other specified; Y92.89 Other specified places as the place of occurrence of the external cause; Y99.8 Other external cause status
CPT/HCPCS: 36415; 70450; 71045; 72125; 73060; 73090; 80053; 84484; 85025; 85610; 85730; 93005; 99285-25